=== PATIENT | female | born 1995 | race Caucasian/White ===

== ENCOUNTER 2022-03-29 15:21 | Observation (INO) | payer BC, SELFPAY ==
--- NOTE | 2022-03-29 15:21 | OBADM ---
This patient, Laura Wang, admitted to the OB room [facility] for observation. Patient/family oriented to hospital policies and general routines including ID bracelet, bed and alarms, visiting hours, pain management, procedures, bathroom and other care routines, personal items, smoking policy, room service/diet, and visiting hours. Patient/Family are encouraged to report perceived risks to care and to ask questions if they do not understand what they are told or what they should do.
[2022-03-29 15:55] VITALS: BP 122/77; PULSE 91
[2022-03-29 16:04] VITALS: BMI 31.8
[2022-03-29 16:49] LABS: Add Urine Microscopic? YES; Appearance Urine Cloudy (Clear); Bacteria Urine Trace /hpf; Bilirubin Urine Negative (Negative); Blood Urine Negative (Negative); Calcium Oxalate Crystals Urine Present /hpf; Color Urine Yellow (Yellow); Glucose Urine UA Negative (Negative); Ketones Urine Negative (Negative); Leukocyte Esterase Ur Trace LEU/UL (NEGATIVE); Mucus Urine Rare /lpf; Nitrate Urine Negative (Negative); Protein Urine Negative (Negative); Specific Grav Ur 1.025 (1.001-1.035); Squamous Epithelial Cell Urine Moderate /hpf (Few); Urobilinogen Urine Negative mg/dL (<2.0); WBC Urine 0-3 /hpf (0-3)
--- NOTE | 2022-04-01 07:40 | P.PNOB_ITS ---
OB - Triage/Final Diagnosis Visit Information Comments/Additional reasons for admission: I have assessed the risk for this patient, Laura Wang, and determined that she would benefit from observation care. Evaluation Laboratory results: Laboratory Tests 03/29/22 15:58 Urine Color Yellow Urine Appearance Cloudy H Urine pH 6.0 Ur Specific [place] 1.025 Urine Protein Negative Urine Glucose (UA) Negative Urine Ketones Negative Ur Blood (Man) Negative Urine Nitrate Negative Urine Bilirubin Negative Urine Urobilinogen Negative Ur Leukocyte Esterase Trace H Urine RBC 3-5 H Urine WBC 0-3 Ur Squamous Epith Cells Moderate H Calcium Oxalate Crystal Present Urine Bacteria Trace Urine Mucus Rare Final Diagnosis (1) Abdominal pain affecting : Code(s): O26.899 - Other specified related conditions, unspecified trimester; R10.9 - Unspecified abdominal pain Status: Acute
== END 2022-03-29 18:00 | disposition home or self-care (01) ==
PROVIDERS: Admitting Provider Obstetrics & Gynecology; Visit Provider Obstetrics & Gynecology
DX: O26.892 Other specified pregnancy related conditions, second trimester (principal); R10.9 Unspecified abdominal pain; Z3A.25 25 weeks gestation of pregnancy
CPT/HCPCS: 81001; 87086; G0378; G0379

== ENCOUNTER 2024-05-27 15:01 | Emergency (ER) | payer SELFPAY ==
[2024-05-27 15:06] VITALS: BP 131/84; PULSE 121; RESP 18; TEMP 37.4; O2SAT 100
[2024-05-27 17:28] VITALS: BP 117/68; PULSE 89; RESP 14; O2SAT 100
--- NOTE | 2024-05-27 17:28 | PC.NURSE ---
Pt declined to be seen due to wait time, pt did get vitals taken - VSS. Pt ambulated out w/out difficulty.
== END 2024-05-27 17:30 | disposition left against medical advice (07) ==
LOC: ANHED 17:36
DX: R42 Dizziness and giddiness (principal)
CPT/HCPCS: 99199

== ENCOUNTER 2024-11-07 15:44 | Outpatient (CLI) | payer OTHER, SELFPAY ==
--- OUTSIDE RECORDS SUMMARY | 2024-11-07 15:48 | XMS_ITS | Encounter Summary ---
Author Organization [facility] [employer] [facility] Address [address] [place] [address] Care Team Providers Care Strainer Tender Name Role Phone Unavailable Primary Care Provider Unavailabl e Reason for Visit * Reason Comments Establish Care Encounter Details Date Type Department Care Team ([facility] st Contact Info) Description 11/06/2024 1:30 PM CDT Office Visit [facility] Oncology and Hematology - [place] [address] [facility] [address] [place] [address] Eddie Parish MD [address] [facility] [address] [place] [address] Leukocytosis, unspecified type (Primary Dx); Chronic anemia; Easy bruising Social History Tobacco Use Types Packs/Day Years Used Date Smoking Tobacco: Never Smokeless Tobacco: Never Tobacco Cessation:Counseling Given: Not Answered Alcohol Use Standard Drinks/Week Comments Never 0 (1 standard drink = 0.6 oz pur e alcohol) Comments Unknown Sex and Gender Information Value Date Recorded Sex Assigned at Not on file Legal Sex Female 9:35 AM CDT Gender Identity Not on file Sexual Orientation Not on file documented as of this encounter Last Filed Vital Signs Vital Sign Reading Time Taken Comments Blood Pressure 137/77 11/06/2024 1:41 PM CDT Pulse 92 11/06/2024 1:41 PM CDT Temperature 36.7 C (98.1 F) 11/06/2024 1:41 PM CDT Respiratory Rate 17 11/06/2024 1:41 PM CDT Oxygen Saturation 98% 11/06/2024 1:41 PM CDT Inhaled Oxygen Concentration - - Weight 79.7 kg (175 lb 9.6 oz) 11/06/2024 1:41 P M CDT Height 162.6 cm (5' 4 ) 11/06/2024 1:41 PM CDT Body Mass Index 30.14 11/06/2024 1:41 PM CDT documented in this encounter Progress Notes * Eddie Parish MD - 11/06/2024 2:28 PM CDT Hematology-oncology consult Note Requesting Physician Primary Care Physician No primary care provider on file. Problem list There is no problem list on file for this patient. Previous TREATMENT ? Measurable Disease ? Reason for Visit Laura Wang is a 29 y.o. female who was referred for consultation for leukocytosis, easy bruising and anemia. History of present illness This is a pleasant 29-year-old female who is 9-week with her third along with history of GERD, Greer's esophagus, polycystic ovarian syndrome and prediabetic state referred to mefor leukocytosis. Patient also complain of frequent easy bruising which is spontaneous in nature. She denies any bleeding including melena hematochezia. She has been complaining of generalized bodyaches along with some drenching night sweats. Denies any fevers and chills. Weight is stable. She doeshave some shortness of breath. She also has some frequency of urination. She also been dealing withsome allergies and sinusitis currently. She denies any other new complaints. Labs from October 31 showed WBC count of 13.4 with hemoglobin of 10.5. No other new complaints. Past Medical History Past Medical History: Diagnosis Date Asthma Diabetes mellitus (CMS/HCC) Hyperlipidemia Hypertension PCOS (polycystic ovarian syndrome) Surgical History Past Surgical History: Procedure Laterality Date HX SECTION 2017,2022 HX TONSIL AND ADENOIDECTOMY 2000 Medications Current Outpatient Medications Medication Sig Dispense Refill PNV no.133/ferrous fum/folic ( ORAL) Take by mouth daily. Omeprazole-Sodium Bicarbonate 20-1,680 mg Packet No current facility-administered medications for this visit. Allergies Allergies Allergen Reactions Codeine Hives, Other (See Comments), Rash, Unknown and Nausea and Vomiting Penicillins Hives, Other (See Comments), Rash, Unknown and Nausea and Vomiting Levofloxacin Nausea and Vomiting Immunizations: There is no immunization history on file for this patient. Family History Family History Problem Relation Name Age of Onset Diabetes Father No Known Problems Mother No Known Problems Sister No Known Problems Child No Known Problems Child Social History Social History Tobacco Use Smoking status: Never Smokeless tobacco: Never Substance Use Topics Alcohol use: Never Review of Systems Constitutional: Patient did not mention fever; complain of night sweats; no anorexia; no weight loss;, plan of tiredness and fatigue NEENT: Patient did not mention headache; no change in vision; no change in hearing; no sore throat;no dysphagia Respiratory: Patient did not mention shortness of breath; no pleuritic chest pain; no cough; no hemoptysis Cardiac: Patient did not mention cardiac-like chest pain; no palpitations; no orthopnea; no PND; noDOE Breasts: Patient did not mention tenderness; no masses GI: Patient did not mention abdominal pain; no nausea; no vomiting; no diarrhea; no hematochezia; no melena : Patient did not mention dysuria; no frequency; no hesitancy; no hematuria INVESTIGATIONS CONSULTANT: Musculosketetal: Patient did not mention bone pain; no arthralgia; no joint swelling; no myalgia;, complain of generalized bodyaches Skin: Patient did not mention pruritis; no rash; complain of easy bruising Endocrine: Patient did not mention polydipsia; complain of frequency of urination; no unusual weight gain Neuro: Patient did not mention headache; no change in vision; no sensory changes; no muscle weakness; no confusion; no seizures Psych: Patient did not mention anxiety; no depression; Physical Exam Vitals: As per nursing note Constitutional: Well developed, well nourished, no acute distress, non-toxic appearance Teeth and gum. No signs of infection or swelling. Eyes: PERRL, conjunctiva normal HEENT: Atraumatic, external ears normal, nose normal, oropharynx moist, no pharyngeal exudates. no sinus tenderness Neck- normal range of motion, no tenderness, supple Respiratory: No respiratory distress, normal breath sounds, no rales, no wheezing Cardiovascular: Normal rate, normal rhythm, no murmurs, no gallops, no rubs GI: Soft, nondistended, normal bowel sounds, nontender, no splenomegaly, no hepatomegaly, no mass, no rebound, no guarding : No costovertebral angle tenderness Musculoskeletal: No edema, no tenderness, no deformities. Back- no tenderness Integument: Well hydrated, no rash, Digits and nails inspection normal Lymphatic: No lymphadenopathy noted Neurologic: Alert & oriented x 3, CN 2-12 normal, normal motor function, normal sensory function, no focal deficits noted Psychiatric: Speech and behavior appropriate ? labs No results found for this or any previous visit (from the past 24 hours). Labs from October 31 showed WBC 13.4 hemoglobin 10.5 platelet 386,000 MCV 89.1 Pathology ? Imaging & Other Studies Performance Status? Assessment / Plan: ? Leukocytosis. Patient is a pleasant 29-year-old female who is 9 weeks has history of GERD, Greer's esophagus, prediabetes and PCOS. She is been dealing with leukocytosis for longtime. She has been complaining of drenching night sweats. Denies any recent weight loss or weight gain. On my examination there is no evidence of lymphadenopathy and hepatosplenomegaly. Her leukocytosis is likely reactive. I will order the workup that will include CBC with differential, CMP, C-reactive protein, sedimentation rate and flow cytometric analysis for leukemia panel. I have answered all the questions to patient satisfaction. Normocytic anemia. This could be dilutional with the . I will order the iron studies and vitamin B12 level. She is taking vitamin. She denies any bleeding. Easy bruising. I will check PT and PTT. Further workup will be done based on the findings. GERD. She is on omeprazole. Thank you very much for allowing me to participate in Laura Wang's evaluation and management. Please feel free to contact if I can be of any further assistance in your patient???s care requiring hematology or oncology evaluation. Sincerely, ? ? Eddie Parish M.D. cell TOBACCO COUNSELING She is not a tobacco/nicotine user. Eddie Parish MD ,11/06/2024 2:28 PM ? Total time spent 60 minutes, two third of the total time spent counseling patient [id number]. CC:? documented in this encounter Plan of Treatment Upcoming Encounters Date Type Department Care Team (Late st Contact Info) Description 11/25/2024 4:30 PM CDT Telephone Check Up [facility] Oncology and Hematology - [place] [id number] [place] [address] Eddie Parish MD [address] [facility] [address] [place] [address] Scheduled Orders Name Type Priority Associated Diagnoses Orde r Schedule CBC WITH DIFFERENTIAL Lab Stat Leukocytosis, unspecified type Expected: 11/06/2024, Expires: 11/06/2025 COMPREHENSIVE METABOLIC PANEL Lab Stat Leukocytosis, unspecified type Expected: 11/06/2024, Expires: 11/06/2025 C-REACTIVE PROTEIN Lab Routine Leukocytosis, unspecified type Expected: 11/06/2024, Expires: 11/06/2025 SEDIMENTATION RATE Lab Routine Leukocytosis, unspecified type Expected: 11/06/2024, Expires: 11/06/2025 FLOW CYTOMETRY PANEL Lab Routine Leukocytosis, unspecified type Expected: 11/06/2024, Expires: 11/06/2025 FERRITIN Lab Routine Chronic anemia Expected: 11/06/2024, Expires: 11/06/2025 IRON, TIBC, AND PERCENT SATURATION Lab Routine Chronic anemia Expected: 11/06/2024, Expires: 11/06/2025 VITAMIN B12 AND FOLATE Lab Routine Chronic anemia Expected: 11/06/2024, Expires: 11/06/2025 PTT Lab Routine Easy bruising Expected: 11/06/2024, Expires: 11/06/2025 PROTIME-INR Lab Routine Easy bruising Expected: 11/06/2024, Expires: 11/06/2025 documented as of this encounter Visit Diagnoses Diagnosis Leukocytosis, unspecified type- Primary Chronic anemia Anemia, unspecified Easy bruising Other symptoms involving skin and integumentary tissues documented in this encounter
--- OUTSIDE RECORDS SUMMARY | 2024-11-07 15:48 | XMS_ITS | Encounter Summary ---
Author Organization [facility] [facility] Address [address] [phone] Care Team Providers Care Shift Foreman Name Role Phone Unavailable Primary Care Provider Unavailabl e Encounter Details Date Type Department Care Team ([facility] Contact Info) Description 11/07/2024 Abstract [facility] Oncology and Hematology - [place] [address] [place] [address] Eddie Parish MD [address] [place] [address] [employer] [address] [place] [address] Social History Tobacco Use Types Packs/Day Years Used Date Smoking Tobacco: Never Smokeless Tobacco: Never Alcohol Use Standard Drinks/Week Comments Never 0 (1 standard drink = 0.6 oz pur e alcohol) Comments Unknown Sex and Gender Information Value Date Recorded Sex Assigned at Not on file Legal Sex Female 9:35 AM CDT Gender Identity Not on file Sexual Orientation Not on file documented as of this encounter Plan of Treatment Upcoming Encounters Date Type Department Care Team ([facility] Contact Info) Description 11/25/2024 4:30 PM CDT Telephone Check Up [facility] Oncology and Hematology - [place] [address] [place] [address] Eddie Parish MD [address] [place] [address] documented as of this encounter Visit Diagnoses Not on filedocumented in this encounter
--- OUTSIDE RECORDS SUMMARY | 2024-11-07 15:49 | XMS_ITS | Clinical Summary ---
Author Organization [facility] Address [address] [place] [address] Care Team Providers Care Keg Header Name Role Phone Unavailable Primary Care Provider Unavailabl e Allergies Active Allergy Reactions Criticality Noted Date Comments Codeine Hives,Other (See Comments),Rash,Unknown,Nausea and Vomiting High 05/05/2017 Levofloxacin Nausea and Vomiting Low 06/06/2024 Penicillins Hives,Other (See Comments),Rash,Unknown,Nausea and Vomiting High 05/05/2017 Medications Omeprazole-Sodium Bicarbonate 20-1,680 mg Packet Active PNV no.133/ferrous fum/folic ( ORAL) Take by mouth daily. Active Active Problems No known active problems Encounters Date Type Department Care Team Description 11/07/2024 Abstract [facility] Oncology and Hematology [place] [address] [place] [phone] Eddie Parish MD 11/06/2024 1:30 PM CDT Office Visit [facility] Oncology and Hematology [place] [address] [place] [phone] Eddie Parish MD Leukocytosis, unspecified type (Primary Dx); Chronic anemia; Easy bruising from Last 3 Months Family History Medical History Relation Name Comments No Known Problems Child 1 No Known Problems Child 2 Diabetes Father No Known Problems Mother No Known Problems Sister Relation Name Status Comments Child 1 Alive Child 2 Alive Father Alive Mother Alive Sister Alive Social History Tobacco Use Types Packs/Day Years [...] on file Sexual Orientation Not on file Last Filed Vital Signs Vital Sign Reading [...] Mass Index 30.14 11/06/2024 1:41 PM CDT Plan of Treatment Upcoming Encounters Date Type Department Care Team (Late st Contact Info) Description 11/25/2024 4:30 PM CDT Telephone Check Up [facility] Oncology and Hematology - [place] [address] [facility] [address] [place] [address] Eddie Parish MD [address] [facility] [address] [place] [address] Health Maintenance Due Date Last Done Comments HPV/Cotest (21-29) 2017 INFLUENZA VACCINE (#1) 2024 , 05/05/2017, 05/22/2014, Additional history exists CERVICAL CANCER SCREENING 08/24/2026 PAP SMEAR 08/24/2026 08/25/2023 DTAP/TDAP/TD VACCINES (9 - T d or Tdap) 05/10/2032 05/10/2022, 05/05/2017, 01/15/2007, Additional history exists HEPATITIS B VACCINES Completed 1998, 03/28/1997, 1996 HPV VACCINES Completed 07/23/2007, 06/2006, 01/15/2007 Insurance [facility] MEDICA[facility]
--- OUTSIDE RECORDS SUMMARY | 2024-11-07 15:49 | XMS_ITS | Clinical Summary ---
Author Organization [facility] Address [address] [place] [address] Care Team Providers Care Clinical Laboratory Aides Teacher Name Role Phone Unavailable Primary Care Provider Unavailabl e Source Comments [facility],non-owned Affiliates and Associated Physician Practices is amultiple site organization consisting of ambulatory clinics and hospital sitesin [place], [place], [place] and [place]. This disclosure is being madepursuant to the Care Everywhere program and may not contain all information available regarding this patient. Last updated 18.[facility] One Month Allergies Active Allergy Reactions Criticality Noted Date Comments Codeine 05/05/2017 Codeine Other,Unknown,Vomiting Medium 05/05/2017 Hydrocodone Other,Vomiting Medium 05/05/2017 Penicillins Other,Rash,Unknown,Vomiting Medium 017 Medications * Be aware that medications may not be up to date on this document. Alwaysverify current medications with the patient. Strattera 40 MG capsule 3 Active liraglutide (Victoza) 18 MG/3ML pen Subcutaneous for 30 Days 3 Active Active Problems Problem Noted Date Diagnosed Date Melanocytic nevi of trunk 06/06/2023 Seborrheic keratosis 06/06/2023 Immunizations Immunization Administration Dates Next Due INFLUENZA VACCINE, QUADR. (F LUZONE; FLULAVAL; FLUARIX; AFLURIA QUADRIVALENT; 6MO+), 0.5 ML (IIV4) 05/05/2017 TDAP (7yrs+) 05/05/2017 Social History Tobacco Use Types Packs/Day Years Used Date Smoking Tobacco: Never Smokeless Tobacco: Never Tobacco Cessation:Counseling Given: Not Answered Comments Unknown Sex and Gender Information Value Date Recorded Sex Assigned at Not on file Legal Sex Female 6:12 PM NUT CHOPPER Gender Identity Not on file Sexual Orientation Not on file Plan of Treatment Health Maintenance Due Date Last Done Comments PAP SMEAR 1996 HIV SCREENING 2011 HEPATITIS C SCREENING 06/23/2014 HEPATITIS B VACCINE (1 of 3 - 19+ 3-dose series) 2015 COVID-19 VACCINE (1 - 2023-2 5 season) 2024 DEPRESSION SCREENING 06/19/2024 INFLUENZA VACCINE (Season Ended) 2025 05/10/2022, 05/05/2017 DTAP/TDAP/TD VACCINES (2 - T d or Tdap) 05/05/2027 05/05/2017 ZOSTER VACCINE (1 of 2) 2046 HIB VACCINE Aged Out No longer eligi ble based on patient's age to complete this topic HPV VACCINE Aged Out No longer eligi ble based on patient's age to complete this topic MENINGOCOCCAL (Group B) VACCINE SHARED DECISION-MAKING Aged Out No longer eligible based on patient's age to complete this topic MENINGOCOCCAL GROUPS A/C/Y/W VACCINE Aged Out No longer eligible b ased on patient's age to complete this topic PNEUMOCOCCAL VACCINE Aged Out No long er eligible based on patient's age to complete this topic Insurance [facility]
--- OUTSIDE RECORDS SUMMARY | 2024-11-07 15:49 | XMS_ITS | Patient Health Record ---
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 Name Role Phone AponteFlower Primary Care Provider Sanjana Moreno Unavailable [phone] Letitia Ellison Unavailable [phone] Allergies Allergen (clinical drug ingredient) Drug/Non Drug Allergy documented on EMR Reaction Allergy Type Onset Date Status amoxicillin Amoxicillin rash Drug Allergy Act jonny codeine Codeine childhood Drug Allergy Active hydrocodone Hydrocodone vomiting Drug Allergy Act jonny levofloxacin Levofloxacin nausea and vomiting Drug Allergy Active Penicillin rash Drug Allergy Active Results Component Value Reference Range Notes Hemoglobin A1c* Reviewed date:06/20/2024 04:51:40 PM Interpretation:Normal Performing Lab:[facility] [place], [address] [facility], Phone - [phone], Director - Stephon Notes/Report: Hemoglobin A1c 5.4 4.8-5.6 % . Prediabetes: 5.7 - 6.4 Diabetes: >6.4 Glycemic control for adults with diabetes: <7.0 CBC With Differential/Platel et* Reviewed date:06/20/2024 04:51:40 PM Interpretation:Abnormal Performing Lab:[facility] [place], [address] [facility], Phone - [phone], Director - PhDNedra Notes/Report: WBC 8.8 3.4-10.8 x10E3/uL RBC 4.04 3.77-5.28 x10E6/uL Hemoglobin 11.8 11.1-15.9 g/dL Hematocrit 37.8 34.0-46.6 % MCV 94 79-97 fL MCH 29.2 26.6-33.0 pg MCHC 31.2 31.5-35.7 g/dL RDW 12.9 11.7-15.4 % Platelets 495 150-450 x10E3/uL Neutrophils 56 Not Estab. % Lymphs 32 Not Estab. % Monocytes 8 Not Estab. % Eos 3 Not Estab. % Basos 1 Not Estab. % Neutrophils (Absolute) 5.0 1.4-7.0 x10E3/uL Lymphs (Absolute) 2.8 0.7-3.1 x10E3/uL Monocytes(Absolute) 0.7 0.1-0.9 x10E3/uL Eos (Absolute) 0.2 0.0-0.4 x10E3/uL Baso (Absolute) 0.1 0.0-0.2 x10E3/uL Immature Granulocytes 0 Not Estab. % Immature Grans (Abs) 0.0 0.0-0.1 x10E3/uL Vitamin D, 25-Hydroxy* Reviewed date:06/20/2024 04:51:40 PM Interpretation:Low Performing Lab:[facility] [place], [address] [facility], [place], Phone - [phone], Director - Stephon Notes/Report: Vitamin D, 25-Hydroxy 17.5 30.0-100.0 ng/mL Vitamin D deficiency has been defined by the [place] of Medicine and an Endocrine Society practice guideline as a level of serum 25-OH vitamin D less than 20 ng/mL (1,2). The Endocrine Society went on to further define vitamin D insufficiency as a level between 21 and 29 ng/mL (2). 1. IOM ([place] of Medicine). 2010. Dietary reference intakes for calcium and D. [place]: The National Academies Press. 2. Osei MF, Laurita AMBRIZ, Lashonda WOO, et al. Evaluation, treatment, and prevention of vitamin D deficiency: an Endocrine Society clinical practice guideline. JCEM. 2010; 96(7):1911-30. Lipid Panel* Reviewed date:06/20/2024 04:51:40 PM Interpretation:Abnormal Performing Lab:[facility], [address] [place] [address], Phone - [phone], Director - PhDBoston Dispensarywing Notes/Report: Cholesterol, Total 207 100-199 mg/dL Triglycerides 99 0-149 mg/dL HDL Cholesterol 58 >39 mg/dL VLDL Cholesterol Silvano 18 5-40 mg/dL LDL Chol Calc ([facility]) 131 0-99 mg/dL CMP 14 Comprehensive Metabol ic Panel* Reviewed date:06/20/2024 04:51:40 PM Interpretation:Abnormal Performing Lab:[facility], [address] [place] [address], Phone - [phone], Director - PhDBoston Dispensarywing Notes/Report: Glucose 89 70-99 mg/dL BUN 14 6-20 mg/dL Creatinine 0.62 0.57-1.00 mg/dL eGFR 125 >59 mL/min/1.73 BUN/Creatinine Ratio 23 9-23 Sodium 138 134-144 mmol/L Potassium 4.5 3.5-5.2 mmol/L Chloride 102 96-106 mmol/L Carbon Dioxide, Total 22 20-29 mmol/L Calcium 9.8 8.7-10.2 mg/dL Protein, Total 6.7 6.0-8.5 g/dL Albumin 4.5 4.0-5.0 g/dL Globulin, Total 2.2 1.5-4.5 g/dL Bilirubin, Total 0.5 0.0-1.2 mg/dL Alkaline Phosphatase 138 44-121 IU/L AST (SGOT) 17 0-40 IU/L ALT (SGPT) 15 0-32 IU/L TSH Rfx on Abnormal to Free T4 Reviewed date:06/20/2024 04:51:40 PM Interpretation:Normal Performing Lab:[facility], [address] [place] [address], Phone - [phone], [facility] Notes/Report: TSH 1.580 0.450-4.500 uIU/mL Test, Urine Reviewed date:10/15/2024 03:25:22 PM Interpretation: Performing Lab: Notes/Report: Test, Urine POS Negative - Negative CBC With Differential/Platel et* Reviewed date:07/08/2024 05:02:36 PM Interpretation: Performing Lab:[facility], [address] [place] [address], Phone - [phone], Director - PhDRicchiwingi Notes/Report: WBC 11.3 3.4-10.8 x10E3/uL RBC 4.23 3.77-5.28 x10E6/uL Hemoglobin 12.6 11.1-15.9 g/dL Hematocrit 38.8 34.0-46.6 % MCV 92 79-97 fL MCH 29.8 26.6-33.0 pg MCHC 32.5 31.5-35.7 g/dL RDW 14.0 11.7-15.4 % Platelets 492 150-450 x10E3/uL Neutrophils 67 Not Estab. % Lymphs 24 Not Estab. % Monocytes 6 Not Estab. % Eos 2 Not Estab. % Basos 1 Not Estab. % Neutrophils (Absolute) 7.5 1.4-7.0 x10E3/uL Lymphs (Absolute) 2.7 0.7-3.1 x10E3/uL Monocytes(Absolute) 0.7 0.1-0.9 x10E3/uL Eos (Absolute) 0.2 0.0-0.4 x10E3/uL Baso (Absolute) 0.1 0.0-0.2 x10E3/uL Immature Granulocytes 0 Not Estab. % Immature Grans (Abs) 0.0 0.0-0.1 x10E3/uL C-Reactive Protein, Quant Reviewed date:07/08/2024 05:02:36 PM Interpretation: Performing Lab:[facility] [place], [address] [place] [address], Phone - [phone], Director - PhDNedra Notes/Report: C-Reactive Protein, Quant 1 0-10 mg/L Reason For Referral Reason Would like to start therapy Diagnosis 1 ADHD (attention defi cit hyperactivity disorder), combined type (F90.2) Referral Organization [facility] Referring Provider First Name Flower Referring Provider Last Name Fadi Referring Provider Speciality Psychiatry Referred Provider [facility] Clinical Notes Rina Camp 08:51:04 AM >[employer] contacted the consumer regarding referral. Consumer is in agreement with referral. However, consumer stated she would call back on her lunch hour for therapy information., Rina Camp 02/23/2024 02:02:55 PM >ELÍ[facility] LOPES attempted to contact consumer regarding referral. VM left requesting call back for options of having the [facility] therapy process information provided via mail and/or email. Awaiting consumer's response for next steps., Rina Camp 02/26/2024 03:38:40 PM >HN PW contacted consumer regarding referral. Consumer is in agreement with the therapy referral. HN PW explained the therapy process. Consumer stated she is aware of [facility] and has the contact information. Consumer stated she is currently working two jobs but just need to find time to call and find out therapy availability. HN advised to inform provider if any additional assistance is warranted. Consumer voiced understanding. Case addressed and closed. Referral Priority Routine Reason Hx. of thrombocytosi s with elevated WBCs, frequent bruising Diagnosis 1 Elevated white blood cell count, unspecified (D72.829) Diagnosis 2 Thrombocytosis (D75. 839) Referral Organization [facility] Referring Provider First Name Letitia Referring Provider Last Name Short Referring Provider [facility] Referred Provider [facility] Referred Provider Specialty Hematology/O ncology General Notes Current patient: todd weinberg new referral to Dr. Eddie Parish, [place] Benita J 07/22/2024 04:12:47 PM >refaxed to Hematology office per patient request as office states they did not receive the labs. Clinical Notes [facility], [address], [place]. [address], , Referral Priority Routine Medications Medication SIG (Take, Route, Frequency, Duration) Notes Start Date End Date Status Promethazine-DM 6.25-15 MG/5ML 5 mL as needed Orally every 6 hrs for 21 days 08/13/2024 Active Vyvanse 40 MG 1 capsule in the morning Orally Once a day for 30 days 08/22/2024 Active Vyvanse 40 MG 1 capsule in the morning Orally Once a day for 30 days 09/19/2024 Active Vyvanse 40 MG 1 capsule in the morning Orally Once a day for 30 days 10/17/2024 Active Vitamin D (Ergocalciferol) 60905 UNIT 1 capsule Orally once a week for 8 weeks for 60 days 06/20/2024 Active Omeprazole 40 MG 1 capsule 1/2 to 1 hour before morning meal Oral Once a day for 30 days Active Fluticasone Propionate 50 MCG/ACT 1 spray in each nostril Nasally Twice a day for 30 days 08/13/2024 Active Victoza 18 MG/3ML Subcutaneous for 30 Days Not-Taking methylPREDNISolone 4 MG Oral for 6 Days Not-Taking levoFLOXacin 750 MG Oral for 7 Days Not-Taking LaMICtal 200 MG 1 tablet Orally once a day for 30 days 08/04/2023 Active FLUoxetine HCl 20 MG 3 capsule Orally On ce a day for 30 days 09/29/2023 Active metFORMIN HCl 500 MG Oral for 90 Days Active Clindamycin HCl 300 MG 1 capsule Orally every 12 hrs for 7 days 06/25/2024 Not-Taking Cyclobenzaprine HCl 5 MG 1 tablet at bedtime as needed Orally Once a day for 30 days As needed 06/17/2024 Active Chlorhexidine Gluconate 0.12 % 15 mL swish for 30 seconds, then spit. Do not swallow. Mouth/Throat Twice a day for 30 days 06/25/2024 Not-Taking Social History Tobacco Use: Social History Observation Description Date Details (start date - stop date) Never Smoker NA - NA Sex Assigned At : Social History Observation Description Sex Assigned At Female Tobacco Control (Standard) Question Answer Notes Tobacco use: Nonsmoker Problems Problem Type SNOMED Code ICD Code Onset Dates Problem Status W/U Status Risk Notes Problem Leukocytosis (943328758) Elevated white blood cell count, unspecified (D72.829) Active confirmed Problem Mood disorder (87434898) Mood disorder (F39) Active confirmed Problem Attention deficit hyperactivity disorder (501273915) ADHD (attention deficit hyperactivity disorder), combined type (F90.2) Active confirmed Problem Vitamin D deficiency (87618505) Vitamin D deficiency (E55.9) Active confirmed Problem Generalized anxiety disorder (24831593) SUJIT (generalized anxiety disorder) (F41.1) Active confirmed Problem Missed period (03962378) Missed menses (N92.6) Active confirmed Problem Laboratory test result abnormal (207087637) Abnormal laboratory test result (R89.9) Active confirmed Vital Signs Heart Rate 83 /min 09/18/2024 Respiratory Rate 16 /min 09/18/2024 Oximetry 98 % 09/18/2024 Blood pressure diastolic 82 mm Hg 09/18/2024 Height 64 in 09/18/2024 Blood pressure systolic 124 mm Hg 09/18/2024 Weight 164.8 lbs 09/18/2024 BMI 28.28 kg/m2 09/18/2024 Encounters Encounter Location Date Provider Diagnosis [facility] [place] [address] 12/26/2023 Flower Aponte ADHD (attention deficit hyperactivity disorder), combined type F90.2 and Mood disorder [address] [place] [place] [address] 02/21/2024 Flower Aponte ADHD (attention deficit hyperactivity disorder), combined type F90.2 ; SUJIT (generalized anxiety disorder) F41.1 and Mood disorder [address] [place] [address] 04/24/2024 Flower Aponte ADHD (attention deficit hyperactivity disorder), combined type F90.2 ; SUJIT (generalized anxiety disorder) F41.1 and Mood disorder [address] [place] [address] 06/04/2024 Flower Aponte ADHD (attention deficit hyperactivity disorder), combined type F90.2 ; SUJIT (generalized anxiety disorder) F41.1 and Mood disorder [address] [place] [address] 06/17/2024 Letitia Ellison Muscle spasm of back M62.830 ; Establishing care with new doctor, encounter for Z71.89 ; Screening for deficiency anemia Z13.0 ; Screening for metabolic disorder Z13.228 ; Screening for diabetes mellitus Z13.1 ; Screening for thyroid disorder Z13.29 and Screening for hyperlipidemia Z13.[address] [place] [address] 06/18/2024 Letitia Ellison Screening for diabetes mellitus Z13.1 ; Screening for deficiency anemia Z13.0 ; Screening for hyperlipidemia Z13.220 ; Screening for metabolic disorder Z13.228 and Screening for thyroid disorder Z13.[address] [place] [address] 07/05/2024 Letitia Ellison Abnormal laboratory test result R89.[address] [address] 07/10/2024 Letitia Ellison Follow up Z09 ; Thrombocytosis D75.839 ; Elevated white blood cell count, unspecified D72.829 ; Dyspnea on exertion R06.09 and Nutritional counseling Z71.3 [facility] [address] [place] [address] 08/22/2024 Flower Aponte ADHD (attention deficit hyperactivity disorder), combined type F90.2 ; SUJIT (generalized anxiety disorder) F41.1 and Mood disorder F39 [address] [address] 09/18/2024 Letitia Ellison Eczema L30.[address] [address] 11/15/2023 Flower Aponte [address] [address] 12/26/2023 Flower Aponte ADHD (attention deficit hyperactivity disorder), combined type F90.[address] [address] 02/28/2024 Sanjana Moreno [address] [address] 03/01/2024 Flower Aponte ADHD (attention deficit hyperactivity disorder), combined type F90.2 and Mood disorder F39 [address] [address] 04/08/2024 Flower Aponte ADHD (attention deficit hyperactivity disorder), combined type F90.[address] [address] 06/20/2024 Letitia Ellison Abnormal laboratory test result R89.9 and Vitamin D deficiency E55.[address] [address] 06/25/2024 Letitia Ellison Dental abscess K04.[address] [place] [address] 07/08/2024 Letitia Ellison [facility] [address] [place] [address] 07/11/2024 Letitia Ellison [address] [place] [address] 07/16/2024 Flower Aponte Mood disorder F39 [address] [place] [address] 08/13/2024 Letitia Ellison Nasal congestion R09.81 and Cough R05.9 [facility] [place] [address] 09/11/2024 Flower Aponte ADHD (attention deficit hyperactivity disorder), combined type F90.2 [facility] [address] [place] [address] 09/11/2024 Letitia Ellison [address] [place] [address] 09/25/2024 Letitia Ellison [address] [place] [address] 10/15/2024 Letitia Ellison Missed menses N92.[address] [place] [address] 10/15/2024 Flower Aponte [address] [place] [address] 10/15/2024 Letitia Ellison [address] [place] [address] 11/01/2024 Flower Aponte [address] [place] [address] 07/18/2024 Letitia Ellison Assessments Encounter Date Diagnosis (ICD Code) Assessment Notes Treatment Notes Treatment Clinical Notes Section Notes 12/26/2023 ADHD (attention deficit hyperactivity disorder), combined type (ICD-10 - F90.2) Start Julian to help with focus and attention. She does work. Continue other medication. May self-administer medications or be administered own oral medications per [facility] protocols. Provided informed consent with understanding of side effects, adverse effects, risks and benefits as well as alternative treatments as previously discussed and with the above recommended medications & other aspects of the treatment program. Agrees to return sooner if symptoms worsen or suicidal or homicidal ideations occur. 12/26/2023 ADHD (attention deficit hyperactivity disorder), combined type (ICD-10 - F90.2) 02/21/2024 ADHD (attention deficit hyperactivity disorder), combined type (ICD-10 - F90.2) 03/01/2024 ADHD (attention deficit hyperactivity disorder), combined type (ICD-10 - F90.2) 04/08/2024 ADHD (attention deficit hyperactivity disorder), combined type (ICD-10 - F90.2) 04/24/2024 ADHD (attention deficit hyperactivity disorder), combined type (ICD-10 - F90.2) 06/04/2024 ADHD (attention deficit hyperactivity disorder), combined type (ICD-10 - F90.2) 06/17/2024 Muscle spasm of back (ICD-10 - M62.830) 06/17/2024 Establishing care with new doctor, encounter for (ICD-10 - Z71.89) 09/18/2024 Eczema (ICD-10 - L30.9) has been using steroid cream with no response. Advised to try emolient cream and RTC if no improvement 10/15/2024 Missed menses (ICD-10 - N92.6) 09/11/2024 ADHD (attention deficit hyperactivity disorder), combined type (ICD-10 - F90.2) 08/13/2024 Nasal congestion (ICD-10 - R09.81) 08/13/2024 Cough (ICD-10 - R05.9) 07/16/2024 Mood disorder (ICD-10 - F39) 06/18/2024 Screening for diabetes mellitus (ICD-10 - Z13.1) 08/22/2024 ADHD (attention deficit hyperactivity disorder), combined type (ICD-10 - F90.2) 07/10/2024 Follow up (ICD-10 - Z09) 07/10/2024 Thrombocytosis (ICD-10 - D75.839) 07/05/2024 Abnormal laboratory test result (ICD-10 - R89.9) 06/25/2024 Dental abscess (ICD-10 - K04.7) 06/20/2024 Vitamin D deficiency (ICD-10 - E55.9) 06/20/2024 Abnormal laboratory test result (ICD-10 - R89.9) 08/22/2024 SUJIT (generalized anxiety disorder) (ICD-10 - F41.1) 06/18/2024 Screening for deficiency anemia (ICD-10 - Z13.0) 07/10/2024 Elevated white blood cell count, unspecified (ICD-10 - D72.829) 06/17/2024 Screening for deficiency anemia (ICD-10 - Z13.0) 06/04/2024 SUJIT (generalized anxiety disorder) (ICD-10 - F41.1) 04/24/2024 SUJIT (generalized anxiety disorder) (ICD-10 - F41.1) 02/21/2024 SUJIT (generalized anxiety disorder) (ICD-10 - F41.1) 03/01/2024 Mood disorder (ICD-10 - F39) 12/26/2023 Mood disorder (ICD-10 - F39) 02/21/2024 Mood disorder (ICD-10 - F39) 04/24/2024 Mood disorder (ICD-10 - F39) 06/04/2024 Mood disorder (ICD-10 - F39) 06/17/2024 Screening for metabolic disorder (ICD-10 - Z13.228) 07/10/2024 Dyspnea on exertion (ICD-10 - R06.09) 08/22/2024 Mood disorder (ICD-10 - F39) 06/18/2024 Screening for hyperlipidemia (ICD-10 - Z13.220) 06/18/2024 Screening for metabolic disorder (ICD-10 - Z13.228) 06/17/2024 Screening for diabetes mellitus (ICD-10 - Z13.1) 06/18/2024 Screening for thyroid disorder (ICD-10 - Z13.29) 06/17/2024 Screening for thyroid disorder (ICD-10 - Z13.29) 07/10/2024 Nutritional counseling (ICD-10 - Z71.3) 06/17/2024 Screening for hyperlipidemia (ICD-10 - Z13.220) 09/18/2024 Other Patient may self-administer their own medications or may self-administer their own oral medications per [facility] Protocol. 08/22/2024 Other Continue current medications. Adding OTC Magnesium to help with sleep. She has appointments to follow up with specialists and with her son. She feels having more answers on her sons condition and getting treatment for him will help her anxiety. Reviewed Prescription Monitoring program. Continue services as scheduled. Labs completed recently. May self-administer medications or be administered own oral medications per [facility] protocols. Provided informed consent with understanding of side effects, adverse effects, risks and benefits as well as alternative treatments as previously discussed and with the above recommended medications & other aspects of the treatment program. Agrees to return sooner if symptoms worsen or suicidal or homicidal ideations occur. 06/04/2024 Other Continue current medications. Reviewed Prescription Monitoring program. Continue services as scheduled. Follow up with PCP. Labs ordered from PCP. May self-administer medications or be administered own oral medications per [facility] protocols. Provided informed consent with understanding of side effects, adverse effects, risks and benefits as well as alternative treatments as previously discussed and with the above recommended medications & other aspects of the treatment program. Agrees to return sooner if symptoms worsen or suicidal or homicidal ideations occur. 02/21/2024 Other Continue current medications, consider a med increase. Ok to change if before 30 days, afterthat would need a follow up. Just waiting for hemotology appointment. Continue services as scheduled. Referred for therapy. Labs completed recently. Is following up with hemotology. May self-administer medications or be administered own oral medications per [facility] protocols. Provided informed consent with understanding of side effects, adverse effects, risks and benefits as well as alternative treatments as previously discussed and with the above recommended medications & other aspects of the treatment program. Agrees to return sooner if symptoms worsen or suicidal or homicidal ideations occur. 04/24/2024 Other Increase LAmictal to help with mood instability. Reviewed Prescription Monitoring program. Continue services as scheduled. Labs completed recently. May self-administer medications or be administered own oral medications per [facility] protocols. Provided informed consent with understanding of side effects, adverse effects, risks and benefits as well as alternative treatments as previously discussed and with the above recommended medications & other aspects of the treatment program. Agrees to return sooner if symptoms worsen or suicidal or homicidal ideations occur. Plan Of Treatment No Information Insurance Providers Payer Name Payer Address Payer Phone Subscriber Number Group Number Insured Name Patient Relationship to Insured Coverage Start Date Coverage End Date [employer] [facility] Claims Department [address] [place] [address] [phone] [id number] Laura Wang Self - patient is the insured 3 [employer] [facility] Claims Department [address] [facility] [place] [address] [phone] [id number] Laura Wang Self - patient is the insured 3 Medical (General) History Medical History History ICD Code Pre-diabetic GERD Surgical History Surgery Date(Month/Year) C section x 2 Tonsillectomy 5 years of age Hospitalization History Reason Date(Month/Year)
--- OUTSIDE RECORDS SUMMARY | 2024-11-07 15:49 | XMS_ITS | Continuity of Care Document ---
Author Organization [facility] Address [address] [place] [address] [address] [place] [address] Phone Care Team Providers Care Box Brander Name Role Phone Cisneros OD, Fredy Unavailable Unavailable Procedures Procedure Date Eye Exam, New Patient Refraction Advance Directives Directive Yes / No Effective Date File Name No Information Encounters Encounter Description Practice Location Reason(s) For Visit Diagnoses Date Provider Providers Copied on Encounter [facility], [address], [place], [place], [id number], [place] tel:[phone] [place] No Information 1-200 7 Cisneros OD Fredy. [address] , [address], [place], [address], [place]. tel:[phone] Family History Family Member Type Diagnosis Age At Onset No Information Payers Payer name Insurance type Covered green party ID Authorkaylaa tijonatan(s) [facility] CI [id number] Social History Type Description Quantity Date Captured Comments Sex Female Smoking Status No Information Chief Complaint And Reason For Visit No Information Reason For Referral Reason For Referral No Information History Of Present Illness Encounter Date Complaint History Of Prese nt Illness No Information Functional Status Date Functional Assessmen t No Information Instructions Date Instruction Additional Infor mation No Information Assessments Type Assessment Date No Information Patient Care Teams Name Effective Dates (start - stop) Status Members No Information
[2024-11-07 16:08] LABS: Basophils Absolute Auto 0.1 K/mm3 (0.0-0.1); Basophils Percent Auto 0.5 % (0.2-1.2); Eosinophils Absolute Auto 0.2 K/mm3 (0-0.3); Eosinophils Percent Auto 1.4 % (0-4.4); Hematocrit 32.6 % (37.0-47.0); Hemoglobin 10.4 g/dL (12.0-15.0); Immature Granulocyte Absolute 0.02 K/mm3 (0.00-0.031); Immature Granulocyte Percent A 0.2 % (0-0.5); Lymphocytes Absolute Auto 1.09 K/mm3 (0.9-3.2); Mean Corpuscular HGB Conc 31.9 g/dl (32-36); Mean Corpuscular Hemoglobin 28.8 pg (26-34); Mean Corpuscular Volume 90.3 fl (80-100); Mean Platelet Volume 10.8 fl (7.4-10.4); Monocytes Absolute Auto 0.9 K/mm3 (0.1-0.6); Monocytes Percent Auto 8.6 % (2.6-8.5); Neutrophils Absolute Auto 8.6 K/mm3 (1.3-6.7); Neutrophils Percent Auto 79.3 % (45.5-73.1); Platelet Count Result 334 k/mm3 (150-375); Red Blood Count 3.61 M/mm3 (4.2-5.4); Red Cell Distribution Width 15.9 % (11.5-14.5); White Blood Count 10.9 K/mm3 (4.5-10.0)
[2024-11-07 16:43] LABS: Iron 48 ug/dL (37-170)
[2024-11-07 16:47] LABS: Partial Thromboplastin Time 27.4 Seconds (22.3-36.8); Prothrombin Time 13.3 Seconds (11.1-14.7)
[2024-11-07 16:52] LABS: Percent Iron Saturation 9 % (20-50)
[2024-11-07 16:59] LABS: Alanine Aminotransferase 20 U/L (6-35); Alkaline Phosphatase 96 U/L (38-126); Anion Gap 8 mmol/L (4-12); Aspartate Amino Transferase 32 U/L (14-36); Bilirubin,Total 0.5 mg/dL (0.2-1.3); Blood Urea Nitrogen 8 mg/dL (7-17); CRP 2.4 mg/dL (<1.0); Carbon Dioxide 23 mmol/L (22-30); Chloride 105 mmol/L (98-107); Estimated Glomerular Filt Rate > 60; Glucose 111 mg/dL (65-110); Potassium 3.8 mmol/L (3.4-5.0); Sodium 136 mmol/L (137-145)
[2024-11-07 17:07] LABS: Erythrocyte Sedimentation Rate 35 mm/hr (0-20)
[2024-11-07 18:10] LABS: Folic Acid > 20.0 ng/mL (2.76->20)
== END 2024-11-07 15:45 | disposition home or self-care (01) ==
PROVIDERS: Visit Provider Internal Medicine Hematology & Oncology
DX: D72.829 Elevated white blood cell count, unspecified (principal); D64.9 Anemia, unspecified; R23.3 Spontaneous ecchymoses
CPT/HCPCS: 36415; 80053; 82607; 82728; 82746; 83540; 83550; 85025; 85610; 85652; 85730; 86140; 88184

== ENCOUNTER 2025-01-27 12:51 | Outpatient (CLI) | payer OTHER, SELFPAY ==
[2025-01-27 13:08] LABS: Hematocrit 34.6 % (37.0-47.0); Hemoglobin 11.5 g/dL (12.0-15.0); Immature Granulocyte Percent A 0.6 % (0-0.5); Lymphocytes Absolute Auto 2.32 K/mm3 (0.9-3.2); Mean Corpuscular HGB Conc 33.2 g/dl (32-36); Mean Corpuscular Hemoglobin 31.1 pg (26-34); Mean Corpuscular Volume 93.5 fl (80-100); Nucleated Red Blood Cells Absolute Auto 0.000 K/mm3 (0.0-0.012); Nucleated Red Blood Cells Perc 0.0 % (0.0-0.2); Platelet Count Result 307 k/mm3 (150-375); Red Blood Count 3.70 M/mm3 (4.2-5.4); White Blood Count 12.7 K/mm3 (4.5-10.0)
[2025-01-27 16:55] LABS: Iron 96 ug/dL (37-170)
[2025-01-27 17:05] LABS: Percent Iron Saturation 18 % (20-50)
[2025-01-27 17:36] LABS: Ferritin 6.68 ng/mL (6.24-137)
== END 2025-01-27 12:52 | disposition home or self-care (01) ==
LOC: ANHLAB 12:52
PROVIDERS: Visit Provider Internal Medicine Hematology & Oncology
DX: D64.9 Anemia, unspecified (principal)
CPT/HCPCS: 36415; 82728; 83540; 83550; 85025

== ENCOUNTER 2025-05-13 13:00 | Outpatient (CLI) | payer OTHER, SELFPAY ==
--- OUTSIDE RECORDS SUMMARY | 2025-05-13 08:45 | XMS_ITS | Encounter Summary ---
Author Organization [facility] Healthcare Address [address] [place] [address] Care Team Providers Care Clock Smith Name Role Phone Jabari Reynaga MD Primary Care Provider [phone] Reason for Referral * Diagnostic Imaging (Routine) - Closed Specialty Diagnoses / Procedures Referred By Contac t Referred To Contact Diagnoses Supervision of other normal , antepartum Attention deficit hyperactivity disorder (ADHD), unspecified ADHD type Procedures US Ob Follow Up Ross Daniel MD [address] [place] [id number] Phone: tel: fax: [facility] (All Locations) Referral ID Status Reason Start Date Expiration Date Visits Re quested Visits Authorized [id number] Closed 02/20/2025 03/22/2026 1 1 MANAGER Reason for Visit * Diagnostic Imaging (Routine) - Closed Specialty Diagnoses / Procedures Referred By Contac t Referred To Contact Diagnoses Supervision of other normal , antepartum Attention deficit hyperactivity disorder (ADHD), unspecified ADHD type Procedures US Ob Follow Up Ross Daniel MD [address] [place] [address] Phone: tel: fax: [facility] (All Locations) Referral ID Status Reason Start Date Expiration Date Visits Re quested Visits Authorized [id number] Closed 02/20/2025 03/22/2026 1 1 Encounter Details Date Type Department Care Team (Latest Contact Info) Description 05/13/2025 8:45 AM ZONE MANAGER Hospital Encounter [facility] - Ultrasound [address] [facility], 7th [address], [address] [place] [facility] [place] [address] Supervision of other normal , antepartum; Attention deficit hyperactivity disorder (ADHD), unspecified ADHD type Social History Tobacco Use Types Packs/Day Years Used Date Smoking Tobacco: Never Smokeless Tobacco: Never Social Connection and Isolation Panel Answer Date Recorded In a typical week, how many times do you talk on the phone with family, friends, or neighbors? More than three times a week 07/06/2022 How often do you get togethe r with friends or relatives? More than three times a week 07/06/2022 How often do you attend chur ch or islam services? Never 07/06/2022 Do you belong to any clubs o r organizations such as mormon groups, unions, fraternal or athletic groups, or school groups? No 07/06/2022 How often do you attend meet ings of the clubs or organizations you belong to? Never 07/06/2022 Are you , , di vorced, , never , or living with a partner? Living with partner 07/06/2022 AUDIT-C Answer Date Recorded Q1: How often do you have a drink containing alcohol? Never 10/31/2024 Q2: How many drinks containi ng alcohol do you have on a typical day when you are drinking? Patient does not drink Q3: How often do you have si x or more drinks on one occasion? Never 10/31/2024 Overall Financial Resource Strain (CARDIA) Answe r Date Recorded How hard is it for you to pa y for the very basics like food, housing, medical care, and heating? Not hard at all 07/06/2022 Hunger Vital Sign Answer Date Recorded Within the past 12 months, y ou worried that your food would run out before you got the money to buy more. Never true 07/06/19 23 Within the past 12 months, t he food you bought just didn't last and you didn't have money to get more. Never true 07/06/2022 PRAPARE - Transportation Answer Date Re corded In the past 12 months, has l ack of transportation kept you from medical appointments or from getting medications? No 06/19 In the past 12 months, has l ack of transportation kept you from meetings, work, or from getting things needed for daily living? No 07/06/2022 Housing Stability Vital Sign Answer Kevin e Recorded In the last 12 months, was t here a time when you were not able to pay the mortgage or rent on time? No 07/06/2022 In the last 12 months, how many places have you lived? 1 07/06/2022 In the last 12 months, was t here a time when you did not have a steady place to sleep or slept in a [place] [facility] [place] facility (including now)? No 07/06/2022 [place] Depression Scale Answer Date Recorded [place] Depression Scale Total 0 08/18/2022 The thought of harming myself has occurred to me . Never 08/18/2022 Personal Safety Answer Date Recorded Have you ever been in or are you currently in a harmful physical or emotional relationship or is someone making you feel afraid or unsafe? Denies 05/08/2025 Estimated Date of Delivery Comme nts Yes 06/09/2025 Based on Ultraso und Sex and Gender Information Value Date Recorded Sex Assigned at Not on file Legal Sex Female 6:23 PM ZONE MANAGER Gender Identity Female 07/18/2024 2:44 PM ZONE MANAGER Sexual Orientation Straight 07/18/2024 2: 44 PM ZONE MANAGER documented as of this encounter Functional Status * Edema Answer Date of Assessment Author Roxy houston 05/13/2025 9:35 AM ZONE MANAGER Nikko Mendoza MD documented as of this encounter Plan of Treatment Upcoming Encounters Date Type Department Care Team (Late st Contact Info) Description 06/02/2025 8:30 AM ZONE MANAGER Hospital Encounter [address] [address] Letitia Nicholas MD [address] [address] 06/02/2025 8:30 AM ZONE MANAGER - 06/02/2025 10:56 AM ZONE MANAGER Surgery [address] [id number] Letitia Nicholas MD [address] [facility] [address] [place] [address] SECTION Scheduled Procedures Name Priority Associated Diagnoses Date/Ti me SECTION History of delivery 06/02/2025 8:30 AM ZONE MANAGER documented as of this encounter Procedures Procedure Name Priority Date/Time Associated Diagnosis Comments US OB FOLLOW UP Schedule Routine, Read Routine (OP Routine) 05/13/2025 8:49 AM ZONE MANAGER Supervision of other normal , antepartum Attention deficit hyperactivity disorder (ADHD), unspecified ADHD type documented in this encounter Results * US Ob Follow Up (05/13/2025 8:49 AM ZONE MANAGER) Fetus# Fetus1 VIEWPOINT Estimated Weight 3,998 g&grams VIEWPOINT Placenta Details left lateral, Previa-no, no placental masses VIEWPOINT Presentation Transverse Lie VIEWPOINT Anatomical Region Laterality Modality Abdomen N/A Ultrasound 05/13/2025 8:50 AM ZONE MANAGER Impressions 05/13/2025 9:18 AM ZONE MANAGER IUP - 36w 1d - LGA growth pattern - the EFW and AC both exceed the 99% Mild polyhydramnios Transverse lie presentation 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 us Ross Daniel MD IMG OB US PROCEDURES Johanny l Result documented in this encounter Visit Diagnoses Diagnosis History of delivery- Primary Supervision of other normal , antepartum Attention deficit hyperactivity disorder (ADHD), unspecified ADHD type History of delivery documented in this encounter Care Teams Clock Smith Relationship Specialty Start Date End Date Jabari Reynaga MD [address] [place] [address] PCP - General Internal Medicine 03/13/25 documented as of this encounter
--- OUTSIDE RECORDS SUMMARY | 2025-05-13 09:30 | XMS_ITS | Encounter Summary ---
Author Organization [facility] Address [address] [place] [address] Phone Care Team Providers Care Cnc Lathe Machinist Name Role Phone Jabari Reynaga MD Primary Care Provider [phone] Reason for Visit * Reason Comments Routine Visit Encounter Details Date Type Department Care Team (Latest Contact Info) Description 05/13/2025 9:30 AM OPERATIONS TECH Office Visit [facility] Medicine Obstetrics and Gynecology [address] [facility] 7th Floor [address] [place] [address] Supervision of other normal , antepartum (Primary Dx); Mood disorder; Mild persistent asthma with acute exacerbation; History of delivery; Gastroesophageal reflux disease without esophagitis; Congenital duplication of uterus; Attention deficit hyperactivity disorder (ADHD), unspecified ADHD type; 36 weeks gestation of ; Transaminitis Social History Tobacco Use Types Packs/Day Years Used Date Smoking Tobacco: Never Smokeless Tobacco: Never Tobacco Cessation:Counseling Given: Not Answered Social Connection and Isolation Panel Answer Date Recorded In a typical week, how many times do you talk on the phone with family, friends, or neighbors? More than three times a week 07/06/2022 How often do you get togethe r with friends or relatives? More than three times a week 07/06/2022 How often do you attend chur ch or hinduism services? Never 07/06/2022 Do you belong to any clubs o r organizations such as lutheran groups, unions, fraternal or athletic groups, or [...] place to sleep or slept in a snf (including now)? No 07/06/2022 [place] Depression Scale Answer Date Recorded [place] Depression Scale Total 0 08/18/2022 The thought [...] on file Legal Sex Female 6:23 PM OPERATIONS TECH Gender Identity Female 07/18/2024 2:44 PM OPERATIONS TECH Sexual Orientation Straight 07/18/2024 2: 44 PM OPERATIONS TECH documented as of this encounter Last Filed Vital Signs Vital Sign Reading Time Taken Comments Blood Pressure 122/86 05/13/2025 9:35 AM OPERATIONS TECH Pulse - - Temperature - - Respiratory Rate - - Oxygen Saturation - - Inhaled Oxygen Concentration - - Weight 101.6 kg (224 lb) 05/13/2025 9:35 AM OPERATIONS TECH Height 162.2 cm (5' 3.86) 05/13/2025 9:35 AM CS T Body Mass Index 38.62 05/13/2025 9:35 AM OPERATIONS TECH documented in this encounter Functional Status * Edema Answer Date of Assessment Author No pitansley 05/13/2025 9:35 AM OPERATIONS TECH Nikko Mendoza MD documented as of this encounter Progress Notes * Anna Mendoza MD - 05/13/2025 9:30 AM CST EOB at 36w1d - Supervision of : tearful about being uncomfortable, large baby in R horn and feeling uncomfortable, desires delivery sooner - Reviewed growth US: EFW 3998g (>99%), AC >99%, FHT 132 bpm, transverse lie, DILAN 25.9 cm - Presented to [facility] on 05/08 for DFM with reassuring monitoring - Inpatient admission for tPTL from 05/04-05/05 - 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 - Mild polyhydramnios diagnosed 04/16: last DILAN 23.7 cm on 05/01 and 25.9 cm today - Hx of CS x2, planning on rCS - PreE in G1 - Anxiety/ADHD: works with psychiatrist, resumed Vyvanse and fluoxetine in given worsening mood, on latuda, last growth US on 04/16 - Mild anemia: resolved with PO iron, most recent Hb 12.1 on 05/04 - Transaminitis: CMP on 05/04 with ALT 79 (81 on 05/01), plan to repeat CMP - Asthma: works with pulmonology, albuterol PRN, symbicort - GERD: on omeprazole - GBS swab collected - 36 week teaching with CECILIA Gutierrez - MOD: rCS scheduled on 06/02 - MOC: considering options, experienced weight gain with last control option, counseling provided on options today - [facility] precautions reviewed ATIONS TECH * Matt Jorgensen RN - 05/13/2025 9:30 AM CST Met with Laura Wang today for 36 week education. Discussed signs of labor and pp bc. 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 Also informedthat social work will visit her in the hospital and baby will have a hearing and blood screening. Pt stated understanding. ATIONS TECH documented in this encounter Miscellaneous Notes * Addendum Note - Anna Mendoza MD - 05/13/2025 9:30 AM CSTAddended by: ANNA MENDOZA on: 05/13/2025 01:42 PM Modules accepted: Orders ATIONS TECH * Addendum Note - Susie Tony - 05/13/2025 9:30 AM CSTAddended by: SUSIE TONY on: 05/13/2025 01:56 PM Modules accepted: Orders ATIONS TECH documented in this encounter Plan of Treatment Upcoming Encounters Date Type Department Care Team (Late st Contact Info) Description 06/02/2025 8:30 AM OPERATIONS TECH Hospital Encounter [address] [address] Letitia Nicholas MD [address] [address] 06/02/2025 8:30 AM OPERATIONS TECH - 06/02/2025 10:56 AM OPERATIONS TECH Surgery [address] [address] Letitia Nicholas MD [address] [address] SECTION Scheduled Orders Name Type Priority Associated Diagnoses Orde r Schedule Comprehensive metabolic panel Lab Routine Supervision of other normal , antepartum Transaminitis Expected: 05/13/2025 (Approximate), Expires: 05/13/2026 Group B streptococcus culture, penicillin allergic Vaginal/Rectal Microbiology Routine Supervision of other normal , antepartum Expected: 05/13/2025, Expires: 05/13/2026 Scheduled Procedures Name Priority Associated Diagnoses Date/Ti me SECTION History of delivery 06/02/2025 8:30 AM OPERATIONS TECH documented as of this encounter Visit Diagnoses Diagnosis History of delivery- Primary Supervision of other normal , antepartum- Primary Mood disorder Unspecified episodic mood disorder Mild persistent asthma with acute exacerbation History of delivery Gastroesophageal reflux disease without esophagitis Esophageal reflux 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
[2025-05-13 13:10] LABS: Hematocrit 37.0 % (37.0-47.0); Hemoglobin 12.3 g/dL (12.0-15.0); Immature Granulocyte Percent A 0.8 % (0-0.5); Lymphocytes Absolute Auto 2.58 K/mm3 (0.9-3.2); Mean Corpuscular HGB Conc 33.2 g/dl (32-36); Mean Corpuscular Hemoglobin 32.3 pg (26-34); Mean Corpuscular Volume 97.1 fl (80-100); Nucleated Red Blood Cells Absolute Auto 0.000 K/mm3 (0.0-0.012); Nucleated Red Blood Cells Perc 0.0 % (0.0-0.2); Platelet Count Result 242 k/mm3 (150-375); Red Blood Count 3.81 M/mm3 (4.2-5.4); White Blood Count 15.8 K/mm3 (4.5-10.0)
[2025-05-13 13:13] LABS: Schistocytes None Seen
[2025-05-13 13:17] LABS: Anisocytosis 1+
--- OUTSIDE RECORDS SUMMARY | 2025-05-13 14:33 | XMS_ITS | Encounter Summary ---
Author Organization [facility] Address [address] [place] [address] Phone Care Team Providers Care Vp Digital Marketing Social Media And Crm Name Role Phone Jabari Reynaga MD Primary Care Provider [phone] Encounter Details Date Type Department Care Team (Late st Contact Info) Description 05/07/2025 Results Follow-Up [facility] Medicine Obstetrics and Gynecology [address] [facility] 7th Floor [address] [place] [address] Yun Montoya MD [address] [facility] [id number] [place], [place] [id number] Bile acids Social History Tobacco Use Types Packs/Day Years [...] often do you attend chur ch or shinto services? Never 07/06/2022 Do you belong to any clubs o r organizations such as jain groups, unions, fraternal or athletic groups, or [...] place to sleep or slept in a assisted (including now)? No 07/06/2022 [place] Depression Scale Answer Date Recorded [place] Depression Scale Total 0 08/18/2022 The thought [...] on file Legal Sex Female 6:23 PM ETHANOL MAINTENANCE MECHANIC Gender Identity Female 07/18/2024 2:44 PM ETHANOL MAINTENANCE MECHANIC Sexual Orientation Straight 07/18/2024 2: 44 PM ETHANOL MAINTENANCE MECHANIC documented as of this encounter Functional Status * Difference in Last Two Jose David Scores Answer Date of Assessment Author -2 05/08/2025 6:15 PM ETHANOL MAINTENANCE MECHANIC Manju Shanks RN * Marshall Fall Risk Question Answer Date of Assessment Author History of Falling 0 05/08/2025 6:15 PM ETHANOL MAINTENANCE MECHANIC Nava Shanks RN Secondary Diagnosis 15 05/08/2025 6:15 PM Nava Huang RN Ambulatory Aids 0 05/08/2025 6:15 PM ETHANOL MAINTENANCE MECHANIC Nava Guevara RN Intravenous Therapy/Heparin/Saline Lock 20 05/08/2025 6:15 PM Manju Barrera RN Gait/Transferring 0 05/08/2025 6:15 PM ETHANOL MAINTENANCE MECHANIC Nava Shanks RN Mental Status 0 05/08/2025 6:15 PM ETHANOL MAINTENANCE MECHANIC Nava Shanks RN Marshall Fall Risk Score (Score >= 45 places fall precaution order) 35 05/08/2025 6:15 PM Nava Barrera RN Prior Fall Event (Autopopulated from EMR) None found 05/08/2025 6:15 PM Gil Barrera RN * Jose David Scale Question Answer Date of Assessment Author Sensory Perceptions 4 05/08/2025 6:15 PM Nava Huang RN Moisture 4 05/08/2025 6:15 PM Nava Barrera RN Activity 4 05/08/2025 6:15 PM Nava Barrera RN Mobility 4 05/08/2025 6:15 PM Nava Barrera RN Nutrition 3 05/08/2025 6:15 PM Nava Barrera RN Friction and Shear 3 05/08/2025 6:15 PM Nava Barrera RN Jose David Scale Score 22 05/08/2025 6:15 PM Nava Barrera RN * Fall Risk Interventions Question Answer Date of Assessment Author All Low Fall Interventions Applied Yes 05/08/2025 6:15 PM Nava Barrera RN All Moderate Fall Interventions Applied No 05/08/2025 6:15 PM Nava Barrera RN All Moderate Fall Risk Interventions EXCEPT: OT eval requested or obtained;PT eval requested or obtained;Gait belt at bedside 05/08/2025 6:15 PM Nava Barrera RN Reason For Exception(s) Pt A&Ox4, uses c all light, BMAT 4 05/08/2025 6:15 PM Nava Barrera RN * B.M.A.T. - Bedside Mobility Assessment Tool for Nurses Question Answer Date of Assessment Author Is patient able to participate in the BMAT? Yes 05/08/2025 7:15 PM Jovanna Omalley RN BMAT Level Level 4 - Green 05/08/2025 7:15 PM Jovanna Kaur RN * Question Answer Date of Assessment Author 1. Has the patient self-reported, presented with clinical signs of, or have a documented history of any of the following within the past 30 days? No 05/08/2025 6:15 PM Nava Barrera RN * Question Answer Date of Assessment Author Is the patient being treated today because it is known or suspected that they prepared, started, or tried to end their life? No 05/08/2025 6:00 PM Nava Barrera RN * Question Answer Date of Assessment Author 1. In the past month, have you wished you were or that you could go to sleep and not wake up? No 05/08/2025 6:00 PM Nava Barrera RN 2. In the past month, have you actually had any thoughts of killing yourself? No 05/08/2025 6:00 PM Nava Barrera RN 6. Have you ever done anything, started to do anything, or prepared to do anything to end your life? No 05/08/2025 6:00 PM Mami Barrera RN * Suicide Risk Level Answer Date of Assessment Author No risk level 05/08/2025 6:00 PM Manju Barrera RN * Self-Injurious Risk Level Answer Date of Assessment Author No risk level 05/08/2025 6:15 PM Manju Barrera RN * Pressure Injury Prevention Question Answer Date of Assessment Author Pressure Ulcer Prevention Interventions Keep skin clean and dry (Sensory Perception/Moistur e) 05/08/2025 6:15 PM Nava Barrera RN * Integumentary Question Answer Date of Assessment Author Integumentary (WDL) WDL 05/08/2025 7:15 PM Jovanna Davies, CECILIA * Question Answer Date of Assessment Author RLE Edema +1 05/08/2025 6:15 PM Nava Barrera RN LLE Edema +1 05/08/2025 6:15 PM Nava Barrera RN Edema Right lower extremit y;Left lower extremity 05/08/2025 6:15 PM Nava Barrera RN * Fall Risk Interventions Question Answer Date of Assessment Author All Low Fall Interventions Applied Yes 05/08/2025 6:15 PM Nava Barrera RN All Moderate Fall Interventions Applied No 05/08/2025 6:15 PM Nava Barrera RN All Moderate Fall Risk Interventions EXCEPT: OT eval requested or obtained;PT eval requested or obtained;Gait belt at bedside 05/08/2025 6:15 PM Nava Barrera RN Reason For Exception(s) Pt A&Ox4, uses c all light, BMAT 4 05/08/2025 6:15 PM Nava Barrera RN * Hygiene Question Answer Date of Assessment Author Hygiene Level of Assistance Independent 05/08/2025 6:15 PM Nava Barrera RN Bath Not bathed/showered 05/08/2025 6:15 PM CS T Nago, Nava Aleyda, RN documented as of this encounter Plan of Treatment Upcoming Encounters Date Type Department Care Team (Late st Contact Info) Description 06/02/2025 8:30 AM ETHANOL MAINTENANCE MECHANIC Hospital Encounter [address] [address] Letitia Nicholas MD [address] [address] 06/02/2025 8:30 AM ETHANOL MAINTENANCE MECHANIC - 06/02/2025 10:56 AM ETHANOL MAINTENANCE MECHANIC Surgery [address] [address] Letitia Nicholas MD [address] [address] SECTION Scheduled Procedures Name Priority Associated Diagnoses Date/Ti me SECTION History of delivery 06/02/2025 8:30 AM ETHANOL MAINTENANCE MECHANIC documented as of this encounter Visit Diagnoses Not on filedocumented in this encounter Care Teams Vp Digital Marketing Social Media And Crm Relationship Specialty Start Date End Date Jabari Reynaga MD [address] [place] [id number] PCP - General Internal Medicine 03/13/25 documented as of this encounter
--- OUTSIDE RECORDS SUMMARY | 2025-05-13 14:33 | XMS_ITS | Patient Health Record ---
Author Organization [facility] Address [address] [place] [address] Care Team Providers Care Plant Packer Name Role Phone Fadi Flower Primary Care Provider [phone] Jabari Reynaga Unavailable [phone] Letitia Ellison Unavailable [phone] Allergies Allergen (clinical drug ingredient) Drug/Non Drug [...] A1c* Reviewed date:06/20/2024 04:51:40 PM Interpretation:Normal Performing Lab:[facility] [place], [address] [facility], Phone - [phone], Director - Stephon Notes/Report: Hemoglobin A1c 5.4 4.8-5.6 % . Prediabetes: 5.7 - 6.4 Diabetes: >6.4 Glycemic control for adults with diabetes: <7.0 CBC With Differential/Platel et* Reviewed date:06/20/2024 04:51:40 PM Interpretation:Abnormal Performing Lab:[facility] [place], [address] [facility], Phone - [phone], Director - PhDNedra Notes/Report: WBC 8.8 3.4-10.8 [...] 25-Hydroxy* Reviewed date:06/20/2024 04:51:40 PM Interpretation:Low Performing Lab:[facility] [address] [facility], Phone - [phone], Director - Stephon Notes/Report: Vitamin D, 25-Hydroxy 17.5 30.0-100.0 ng/mL Vitamin D deficiency has been defined by the [place] of [employer] and an Endocrine Society practice guideline as a level of serum 25-OH vitamin D less than 20 ng/mL (1,2). The Endocrine Society went on to further define vitamin D insufficiency as a level between 21 and 29 ng/mL (2). 1. IOM ([place] of [employer]). 2010. Dietary reference intakes for calcium and D. [place]: The National Academies Press. 2. Osei MF, Laurita NC, Lashonda WOO, et al. Evaluation, treatment, and prevention of vitamin D deficiency: an Endocrine Society clinical practice guideline. JCEM. 2010; 96(7):1911-30. Lipid Panel* Reviewed date:06/20/2024 04:51:40 PM Interpretation:Abnormal Performing Lab:[facility], [address] [facility], Phone - [phone], Director - [facility] Notes/Report: Cholesterol, Total 207 100-199 mg/dL Triglycerides 99 0-149 mg/dL HDL Cholesterol 58 >39 mg/dL VLDL Cholesterol Silvano 18 5-40 mg/dL LDL Chol Calc (NIH) 131 0-99 mg/dL CMP 14 Comprehensive Metabol ic Panel* Reviewed date:06/20/2024 04:51:40 PM Interpretation:Abnormal Performing Lab:[facility], [address] [facility], Phone - [phone], Director - [facility] Notes/Report: Glucose 89 70-99 mg/dL BUN 14 [...] T4 Reviewed date:06/20/2024 04:51:40 PM Interpretation:Normal Performing Lab:[facility], [address] [facility], Phone - [phone], [facility]/Report: TSH 1.580 0.450-4.500 uIU/mL CBC With Differential/Platel et* Reviewed date:07/08/2024 05:02:36 PM Interpretation: Performing Lab:[facility], [address] [facility], Phone - [phone], [facility]/Report: WBC 11.3 3.4-10.8 x10E3/uL RBC 4.23 [...] Quant Reviewed date:07/08/2024 05:02:36 PM Interpretation: Performing Lab:[facility] [place], [address] [facility], [place], Phone - [phone], Director - Stephon Notes/Report: C-Reactive Protein, Quant 1 0-10 mg/L Test, Urine Reviewed date:10/15/2024 03:25:22 PM Interpretation: Performing Lab: Notes/Report: Test, Urine POS Negative - Negative Reason For Referral Reason Hx. of thrombocytosi s with elevated WBCs, frequent bruising Diagnosis 1 Elevated white blood cell count, unspecified (D72.829) Diagnosis 2 Thrombocytosis (D75. 839) Referral Organization [facility] Referring Provider First Name Letitia Referring Provider Last Name Short Ref[facility] [place] [facility] H[facility]ology Referred Provider Specialty Hematology/O ncology General Notes Current patient: todd weinberg new referral to Dr. Eddie Parish, [place], Tracey Saul 07/22/2024 04:12:47 PM >refaxed to Hematology office per patient request as office states they did not receive the labs. Clinical Notes [facility], [address], [place]. [address], , Referral Priority Routine Medications Medication SIG (Take, Route, Frequency, Duration) Notes Start Date End Date Status metFORMIN HCl 500 MG Oral; Duration: 90 Days Not-Taking Vyvanse 50 MG 1 capsule in the morning Orally Once a day; Duration: 30 days 05/06/2025 Active Vitamin D (Ergocalciferol) 05030 UNIT 1 capsule Orally once a week for 8 weeks; Duration: 60 days 06/20/2024 Not-Taking methylPREDNISolone 4 MG Oral; Duration: 6 Days Not-Taking levoFLOXacin 750 MG Oral; Duration: 7 Days Not-Taking Iron 28 MG 1 tablet Orally daily (65g tablet) Active Omeprazole 40 MG 1 capsule 1/2 to 1 hour before morning meal Oral Once a day; Duration: 30 days Not-Taking Baby Aspirin Active Vyvanse 50 MG 1 capsule in the morning Orally Once a day; Duration: 30 days 07/01/2025 Active Fluticasone Propionate 50 MCG/ACT 1 spray in each nostril Nasally Twice a day; Duration: 30 days 08/13/2024 Not-Taking 28-0.8 MG 1 tablet Orally Once a day Active Cyclobenzaprine HCl 5 MG 1 tablet at bedtime as needed Orally Once a day; Duration: 30 days As needed 06/17/2024 Not-Taking Vyvanse 50 MG 1 capsule in the morning Orally Once a day; Duration: 30 days 06/03/2025 Active Clindamycin HCl 300 MG 1 capsule Orally every 12 hrs; Duration: 7 days 06/25/2024 Not-Taking Victoza 18 MG/3ML Subcutaneous; Duration: 30 Days Not-Taking Lurasidone HCl 40 MG 1 tablet in the evening with food Orally Once a day; Duration: 30 days 11/29/2024 Active Omeprazole 40 MG 1 capsule 1/2 to 1 hour before morning meal Orally Once a day; Duration: 30 days 01/15/2025 Active Promethazine-DM 6.25-15 MG/5ML 5 mL as needed Orally every 6 hrs; Duration: 21 days 08/13/2024 Not-Taking FLUoxetine HCl 20 MG 3 capsules Orally Once a day; Duration: 30 days 09/29/2023 Active Chlorhexidine Gluconate 0.12 % 15 mL swish for 30 seconds, then spit. Do not swallow. Mouth/Throat Twice a day; Duration: 30 days 06/25/2024 Active Social History Tobacco Use: Social History Observation Description Date Details (start date - stop date) Never Smoker NA - NA Sex Assigned At : Social History Observation Description Sex Assigned At Female Tobacco Control (Standard) Question Answer Notes Tobacco use: Nonsmoker Problems Problem Type SNOMED Code ICD Code Onset Dates Problem Status W/U Status Risk Notes Problem Leukocytosis (568573316) Elevated white blood cell count, unspecified (D72.829) Active confirmed Problem Mood disorder (92418475) Mood disorder (F39) Active confirmed Problem Attention deficit hyperactivity disorder (525773235) ADHD (attention deficit hyperactivity disorder), combined type (F90.2) Active confirmed Problem Vitamin D deficiency (69454038) Vitamin D deficiency (E55.9) Active confirmed Problem Generalized anxiety disorder (77374070) SUJIT (generalized anxiety disorder) (F41.1) Active confirmed Problem Missed period (73110616) Missed menses (N92.6) Active confirmed Problem Overweight (961540280) Over weight (E66.3) Active confirmed Problem Laboratory test result abnormal (903138014) Abnormal laboratory test result (R89.9) Active confirmed Problem Greer's esophagus (458952133) Greer''s esophagus without dysplasia (K22.70) Active confirmed Vital Signs Heart Rate 96 /min 04/01/2025 Respiratory Rate 16 /min 04/01/2025 Blood pressure diastolic 70 mm Hg 04/01/2025 Oximetry 99 % 04/01/2025 Height 64 inches in 04/01/2025 Blood pressure systolic 104 mm Hg 04/01/2025 Weight 193.6 lbs lbs 04/01/2025 BMI 33.23 kg/m2 04/01/2025 Encounters Encounter Location Date Provider Diagnosis [facility] [address] [place] [address] 06/04/2024 Flower Aponte ADHD (attention deficit hyperactivity disorder), combined type F90.2 ; SUJIT (generalized anxiety disorder) F41.1 and Mood disorder F39 [facility] [address] [place] [address] 06/17/2024 Letitia Ellison Muscle spasm of back M62.830 ; Establishing care with new doctor, encounter for Z71.89 ; Screening for deficiency anemia Z13.0 ; Screening for metabolic disorder Z13.228 ; Screening for diabetes mellitus Z13.1 ; Screening for thyroid disorder Z13.29 and Screening for hyperlipidemia Z13.[address] [place] [address] 06/18/2024 Letitia Ellison Screening for diabet es mellitus Z13.1 ; Screening for deficiency anemia Z13.0 ; Screening for hyperlipidemia Z13.220 ; Screening for metabolic disorder Z13.228 and Screening for thyroid disorder Z13.[address] [address] 07/05/2024 Letitia Ellison Abnormal laboratory test result R89.[address] [address] 07/10/2024 Letitia Ellison Follow up Z09 ; Thrombocytosis D75.839 ; Elevated white blood cell count, unspecified D72.829 ; Dyspnea on exertion R06.09 and Nutritional counseling Z71.3 [facility] [address] [place] [address] 08/22/2024 Flower Aponte ADHD (attention deficit hyperactivity disorder), combined type F90.2 ; SUJIT (generalized anxiety disorder) F41.1 and Mood disorder F39 [address] [address] 09/18/2024 Letitia Ellison Eczema L30.[address] [address] 11/29/2024 Flower Aponte ADHD (attention deficit hyperactivity disorder), combined type F90.2 ; Mood disorder F39 ; SUJIT (generalized anxiety disorder) F41.1 and Over weight E66.3 [facility] [address] [place] [address] 01/01/2025 Flower Aponte ADHD (attention deficit hyperactivity disorder), combined type F90.2 ; SUJIT (generalized anxiety disorder) F41.1 and Mood disorder F39 [address] [place] [address] 01/15/2025 Jabari Reynaga Over weight E66.3 an d Greer''s esophagus without dysplasia K22.70 [facility] [place] [address] 02/05/2025 Flower Aponte ADHD (attention deficit hyperactivity disorder), combined type F90.2 and SUJIT (generalized anxiety disorder) F41.1 [facility] [address] [place] [address] 04/01/2025 Flower Aponte Over weight E66.3 ; Mood disorder F39 ; ADHD (attention deficit hyperactivity disorder), combined type F90.2 and SUJIT (generalized anxiety disorder) F41.1 [facility] [place] [address] 05/06/2025 Flower Aponte ADHD (attention deficit hyperactivity disorder), combined type F90.2 and SUJIT (generalized anxiety disorder) F41.[address] [place] [address] 06/20/2024 Letitia Ellison Abnormal laboratory test result R89.9 and Vitamin D deficiency E55.[address] [place] [address] 06/25/2024 Letitia Ellison Dental abscess K04.[address] [place] [address] 07/08/2024 Letitia Ellison [facility] [address], [place] [address] 07/11/2024 Letitia Ellison [address] [place] [address] 07/16/2024 Flower Aponte Mood disorder F39 [address] [place] [address] 08/13/2024 Letitia Ellison Nasal congestion R09.81 and Cough R05.9 [facility] [address] [place] [address] 09/11/2024 Flower Aponte ADHD (attention deficit hyperactivity disorder), combined type F90.2 [facility] [address] [place] [address] 09/11/2024 Letitia Ellison [address] [place] [address] 09/25/2024 Letitia Ellison [address] [address] 10/15/2024 Letitia Ellison Missed menses N92.[address] [place] [address] 10/15/2024 Flower Aponte [address] [address] 10/15/2024 Letitia Ellison [address] [address] 11/01/2024 Flower Aponte [address] [place] [address] 12/25/2024 Flower Aponte [facility] [address] [place] [address] 01/01/2025 Flower Aponte [address] [place] [address] 02/07/2025 Jabari Reynaga Dental abscess K04.[address] [place] [address] 03/03/2025 Flower Aponte [address] [place] [address] 03/25/2025 Jabari Reynaga [address] [place] [address] 07/18/2024 Letitia Ellison Assessments Encounter Date Diagnosis (ICD Code) Assessment Notes Treatment Notes Treatment Clinical Notes Section Notes 06/04/2024 ADHD (attention deficit hyperactivity disorder), combined type (ICD-10 - F90.2) 06/17/2024 Muscle spasm of back (ICD-10 - M62.830) 06/17/2024 Establishing care with new doctor, encounter for (ICD-10 - Z71.89) 06/20/2024 Vitamin D deficiency (ICD-10 - E55.9) 06/20/2024 Abnormal laboratory test result (ICD-10 - R89.9) 06/25/2024 Dental abscess (ICD-10 - K04.7) 07/05/2024 Abnormal laboratory test result (ICD-10 - R89.9) 06/18/2024 Screening for diabetes mellitus (ICD-10 - Z13.1) 07/10/2024 Follow up (ICD-10 - Z09) 07/10/2024 Thrombocytosis (ICD-10 - D75.839) 07/16/2024 Mood disorder (ICD-10 - F39) 08/13/2024 Nasal congestion (ICD-10 - R09.81) 08/13/2024 Cough (ICD-10 - R05.9) 09/11/2024 ADHD (attention deficit hyperactivity disorder), combined type (ICD-10 - F90.2) 09/18/2024 Eczema (ICD-10 - L30.9) has been using steroid cream with no response. Advised to try emolient cream and RTC if no improvement 10/15/2024 Missed menses (ICD-10 - N92.6) 08/22/2024 ADHD (attention deficit hyperactivity disorder), combined type (ICD-10 - F90.2) 11/29/2024 ADHD (attention deficit hyperactivity disorder), combined type (ICD-10 - F90.2) Start LAtuda to help with mood instability. THe rest was sent by OB. Reviewed Prescription Monitoring program. Continue services as scheduled. Labs completed recently. May self-administer medications or be administered own oral medications per [place] protocols. Provided informed consent with understanding of side effects, adverse effects, risks and benefits as well as alternative treatments as previously discussed and with the above recommended medications & other aspects of the treatment program. Agrees to return sooner if symptoms worsen or suicidal or homicidal ideations occur. 01/01/2025 ADHD (attention deficit hyperactivity disorder), combined type (ICD-10 - F90.2) Continue current medications. Reviewed Prescription Monitoring program. Continue services as scheduled. Labs completed recently. May self-administer medications or be administered own oral medications per [place] protocols. Provided informed consent with understanding of side effects, adverse effects, risks and benefits as well as alternative treatments as previously discussed and with the above recommended medications & other aspects of the treatment program. Agrees to return sooner if symptoms worsen or suicidal or homicidal ideations occur. 01/15/2025 Over weight (ICD-10 - E66.3) 01/15/2025 Greer''s esophagus without dysplasia (ICD-10 - K22.70) 02/05/2025 ADHD (attention deficit hyperactivity disorder), combined type (ICD-10 - F90.2) 02/07/2025 Dental abscess (ICD-10 - K04.7) 04/01/2025 Over weight (ICD-10 - E66.3) 05/06/2025 ADHD (attention deficit hyperactivity disorder), combined type (ICD-10 - F90.2) 05/06/2025 SUJIT (generalized anxiety disorder) (ICD-10 - F41.1) 04/01/2025 Mood disorder (ICD-10 - F39) 02/05/2025 SUJIT (generalized anxiety disorder) (ICD-10 - F41.1) 01/01/2025 SUJIT (generalized anxiety disorder) (ICD-10 - F41.1) 06/18/2024 Screening for deficiency anemia (ICD-10 - Z13.0) 08/22/2024 SUJIT (generalized anxiety disorder) (ICD-10 - F41.1) 11/29/2024 Mood disorder (ICD-10 - F39) 07/10/2024 Elevated white blood cell count, unspecified (ICD-10 - D72.829) 06/17/2024 Screening for deficiency anemia (ICD-10 - Z13.0) 06/04/2024 SUJIT (generalized anxiety disorder) (ICD-10 - F41.1) 06/04/2024 Mood disorder (ICD-10 - F39) 06/17/2024 Screening for metabolic disorder (ICD-10 - Z13.228) 07/10/2024 Dyspnea on exertion (ICD-10 - R06.09) 06/18/2024 Screening for hyperlipidemia (ICD-10 - Z13.220) 08/22/2024 Mood disorder (ICD-10 - F39) 11/29/2024 SUJIT (generalized anxiety disorder) (ICD-10 - F41.1) 01/01/2025 Mood disorder (ICD-10 - F39) 04/01/2025 ADHD (attention deficit hyperactivity disorder), combined type (ICD-10 - F90.2) 04/01/2025 SUJIT (generalized anxiety disorder) (ICD-10 - F41.1) 11/29/2024 Over weight (ICD-10 - E66.3) 06/18/2024 Screening for metabolic disorder (ICD-10 - Z13.228) 06/17/2024 Screening for diabetes mellitus (ICD-10 - Z13.1) 06/18/2024 Screening for thyroid disorder (ICD-10 - Z13.29) 06/17/2024 Screening for thyroid disorder (ICD-10 - Z13.29) 07/10/2024 Nutritional counseling (ICD-10 - Z71.3) 06/17/2024 Screening for hyperlipidemia (ICD-10 - Z13.220) 06/04/2024 Other Continue current medications. Reviewed Prescription Monitoring program. Continue services as scheduled. Follow up with PCP. Labs ordered from PCP. May self-administer medications or be administered own oral medications per [place] protocols. Provided informed consent with understanding of side effects, adverse effects, risks and benefits as well as alternative treatments as previously discussed and with the above recommended medications & other aspects of the treatment program. Agrees to return sooner if symptoms worsen or suicidal or homicidal ideations occur. 08/22/2024 Other Continue current medications. Adding OTC Magnesium to help with sleep. She has appointments to follow up with specialists and with her son. She feels having more answers on her sons condition and getting treatment for him will help her anxiety. Reviewed Prescription Monitoring program. Continue services as scheduled. Labs completed recently. May self-administer medications or be administered own oral medications per [place] protocols. Provided informed consent with understanding of side effects, adverse effects, risks and benefits as well as alternative treatments as previously discussed and with the above recommended medications & other aspects of the treatment program. Agrees to return sooner if symptoms worsen or suicidal or homicidal ideations occur. 09/18/2024 Other Patient may self-administe r their own medications or may self-administe r their own oral medications per [place] Protocol. 02/05/2025 Other Increase lurasidone to help with mood instability. Reviewed Prescription Monitoring program. Continue services as scheduled. Labs completed recently. May self-administer medications or be administered own oral medications per [place] protocols. Provided informed consent with understanding of side effects, adverse effects, risks and benefits as well as alternative treatments as previously discussed and with the above recommended medications & other aspects of the treatment program. Agrees to return sooner if symptoms worsen or suicidal or homicidal ideations occur. 04/01/2025 Other Increase fluoxetine to help with anxiety. In 1 week, increase Vyvanse to help with inattention. Discussed with OB who is monitoring and recommending. Labs done recently. Continue services as scheduled. May self-administer medications or be administered own oral medications per [place] protocols. Provided informed consent with understanding of side effects, adverse effects, risks and benefits as well as alternative treatments as previously discussed and with the above recommended medications & other aspects of the treatment program. Agrees to return sooner if symptoms worsen or suicidal or homicidal ideations occur. 05/06/2025 Other Continue current medications. Labs done recently. Continue services as scheduled. Reviewed [employer] May self-administer medications or be administered own oral medications per [place] protocols. Provided informed consent with understanding of [...] Insured Coverage Start Date Coverage End Date [facility] [facility] [employer] [facility] Attn Claims Department [address] [place] [address] [phone] [id number] Laura Wang Self - patient is the insured 3 [employer] Attn Claims Department [address] [place] [address] [phone] [id number] Laura Wang Self - patient is the insured 3 Medical (General) History Medical History History ICD Code Pre-diabetic GERD Preeclampsia Surgical History Surgery Date(Month/Year) C section x 2 Tonsillectomy 5 years of age scheduled 06/02/2025 Hospitalization History Reason Date(Month/Year)
--- OUTSIDE RECORDS SUMMARY | 2025-05-13 14:33 | XMS_ITS | Clinical Summary ---
Author Organization [facility] Address [address] [place] [address] Care Team Providers Care Traffic Counter Name Role Phone Unavailable Primary Care Provider Unavailabl e Source Comments [facility],non-owned Affiliates and Associated Physician Practices is amultiple site organization consisting of ambulatory clinics and hospital sitesin [place], [place], [place] and [place]. This disclosure is being madepursuant to the Care Everywhere program and may not contain all information available regarding this patient. Last updated 18.[facility] Allergies Active Allergy Reactions Criticality Noted Date [...] on file Legal Sex Female 6:12 PM [employer] Gender Identity Not on file Sexual Orientation Not on file Plan of Treatment Health Maintenance Due Date Last Done Comments HIV SCREENING 2011 HEPATITIS C SCREENING 06/23/2014 HEPATITIS B VACCINE (1 of 3 - 19+ 3-dose series) 2015 PAP SMEAR 2017 HPV VACCINE (1 - 3-dose SCDM series) 2023 DEPRESSION SCREENING 06/19/2024 COVID-19 VACCINE (1 - 2024-2 6 season) 2025 INFLUENZA VACCINE (#1) 2025 2, 05/05/2017 DTAP/TDAP/TD VACCINES (2 - T d [...] patient's age to complete this topic Insurance [facility]
--- OUTSIDE RECORDS SUMMARY | 2025-05-13 14:33 | XMS_ITS | Patient Health Record ---
Author Organization [facility] Address [address] [facility] [address] [place] [address] Care Team Providers Care Enroute Controller Name Role Phone Letitia Foster Unavailable [phone] Reason For Referral No Information Medications Medication SIG (Take, Route, Frequency, Duration) Notes Start Date End Date Status Escitalopram Oxalate 5 MG Tablet Oral 03/02/2020 Active Cetirizine HCl 10 MG Tablet Oral 03/02/2020 Active Fluticasone Propionate Diskus 50 MCG/ACT Aerosol Powder Breath Activated Inhalation *Reorder from 9Cookies for eRx and Interaction Alerts* 03/02/2020 Active Doxycycline Hyclate 100 MG Capsule Oral 03/02/2020 Active Social History Social History Additional Details Category Social Info Options Details Migrated Social History Migrated Social History Alcohol Intake: Occasional 03/02/2020,Tobacco Years: Never smoker 03/02/2020 Plan Of Treatment No Information Insurance Providers Payer Name Payer Address Payer Phone Subscriber Number Group Number Insured Name Patient Relationship to Insured Coverage Start Date Coverage End Date [employer] [address] [place] [phone] [id number] MIRANDA CRUZ Child - Insured has Financial Responsibility
--- OUTSIDE RECORDS SUMMARY | 2025-05-13 14:33 | XMS_ITS | Clinical Summary ---
Author Organization [facility] Address [address] [place] [address] Care Team Providers Care Clinical Informatics Specialist Name Role Phone Jabari Reynaga MD Primary Care Provider Allergies Active Allergy Reactions Criticality Noted Date Comments Amoxicillin Hives,Vomiting Medium 05/10/2022 Codeine Hives,Unknown,Vomiti ng,Rash,Other (See comments) Medium 05/05/2017 Hydrocodone Hives,Vomiting,Other (See comments) Medium 05/05/2017 Levofloxacin Vomiting,Nausea & Vomiting Low 024 Penicillins Hives,Unknown,Vomiti ng,Other (See comments),Rash Medium 05/05/2017 Medications albuterol HFA (PROVENTIL HFA,VENTOLIN HFA,PROAIR HFA) 90 mcg/actuation inhalerIndication s:Shortness of breath Inhale 2 puffs every 6 (six) hours as needed for wheezing 3 each 4 06/06/20 24 025 Active inhalational spacing device ([facility]ita [facility]) spacer 1 DEVICE NEEDED Active prenat.vits,daysi,m [id number] tablet Take by mouth Active lurasidone (LATUDA) 20 mg tablet 11/30/19 25 Active omeprazole (PriLOSEC) 40 mg capsule Take 1 capsule (40 mg total) by mouth daily 30 capsule 3 12/25/19 25 Active cetirizine (ZyrTEC) 10 mg tablet Oral 03/02/20 20 Active ferrous sulfate 325 mg (65 mg of elemental iron) tabletIndications :Iron Deficiency Anemia Take 1 tablet (325 mg total) by mouth every other day 60 tablet 1 01/24/20 25 Active benzonatate (TESSALON) 100 mg capsuleIndication s:Cough Take 1 capsule (100 mg total) by mouth 3 (three) times a day as needed for cough 30 capsule 04/23/20 25 Active budesonide-formot [place] (SYMBICORT) 80-4.5 mcg/actuation inhalerIndication s:Maintenance Therapy for Asthma Inhale 2 puffs 2 (two) times a day Rinse mouth with water after use. Do not swallow. 1 each 3 04/23/20 25 Active lisdexamfetamine (VYVANSE) 50 mg capsule Take 1 capsule (50 mg total) by mouth every morning Active FLUoxetine (PROzac) 20 mg tablet Take 3 tablets (60 mg total) by mouth daily Active cefdinir (OMNICEF) 300 mg capsuleIndication s:Upper Respiratory/HEENT Infection Take 1 capsule (300 mg total) by mouth 2 (two) times a day for 7 days 14 capsule 05/11/20 25 025 Active fluticasone propionate (FLONASE) 50 mcg/actuation nasal spray 08/13/19 25 025 Discontin ued(Patie nt Reported) albuterol-budeson real (Airsupra) 90-80 mcg/actuation HFA aerosol inhaler Inhale 2 Inhalations every 6 (six) hours as needed (Dyspnea, wheezing, cough) Please rinse mouth after use. Do not swallow. 10.7 g 10/24/19 025 Discontin ued(Stop Taking at Discharge ) FLUoxetine (PROzac) 20 mg capsuleIndication s:Supervision of other normal , antepartum,Genera lized anxiety disorder Take 2 capsules (40 mg total) by mouth daily 60 capsule 11 12/27/19 25 025 Discontin ued(Alter suzy therapy) lisdexamfetamine (VYVANSE) 40 mg capsuleIndication s:Supervision of other normal , antepartum,Attent ion deficit hyperactivity disorder (ADHD), combined type Take 1 capsule (40 mg total) by mouth every morning 30 capsule 12/31/19 25 025 Discontin ued(Alter suzy therapy) aspirin 81 mg chewable tablet Baby Aspirin 025 Discontin ued(Patie nt Reported) guaiFENesin ER (MUCINEX) 600 mg 12 hr tablet Take 1 tablet (600 mg total) by mouth 2 (two) times a day as needed for cough 30 tablet 04/23/20 025 Discontin ued(Patie nt Reported) Active Problems Problem Noted Date Diagnosed Date labor without delivery 05/04/2025 History of delivery 03/20/2025 Mood disorder 01/23/2025 Mild persistent asthma with acute exacerbation 0 11/28/2024 Supervision of other normal , antepartu m 10/16/2024 Overview (05/13/2025): -didelphys 2 uteri and 2 cervices, in right side.Probable short Vaginal septum -previous did serial growth US -h/o pre-e in G1 -h/o pLTCS in G1 @ 37.0 for pre-e, breech, and low lying placenta, op note in media, confirmed LTCS -asthma, on Symbicort BID + albuterol PRN -Pt has absent left kidney -Anxiety and ADHD- stopped fluoxetine and lamotrigine about 6 weeks. Also stopped Vyvance for ADHD > restarted at 12 wks due to worsening mood - Plan fr serial growth US -PCOS: stopped metformin, for A1c and early diabetes screening -PCN allergy- hives/vomiting, never had cephalosporins--for Clinda/gent for C/S prophylaxis -mild anemia, feso4 -Resolved @ 34wks, mild polyhydramnios dx 04/16 -rLTCS 06/02/25 @ 0600arr/0830start, pt aware, labs ordered, clinda/gent ordered -elevated ALT and proteinuria 04/25, decreasing, but elevated ALT 05/04. ?repeat CMP -adm to [facility] 05/04 for rPTL, SVE 1cm, NML bile acids [x] Initial BMI: 30.24 [x] Labs: Labs: Lab Results Component Value Date ABORH O Positive 10/31/2024 IDCOOMB Negative 10/31/2024 [id number] Nonreactive 10/31/2024 LABRPR Nonreactive 10/31/2024 RUBELIGG Reactive 10/31/2024 HEPBSAG Nonreactive 10/31/2024 [x] Genetic Screening: NML cfDNA [x] Baby ASA: yes @ 12 weeks [x] 1hr GCT at 24-28wks: NML 123 [x] Tdap (27-36wks):03/20/2025 MM [x] Flu Shot:03/20/2025 MM [x] RSV Vaccine in season (32.0-36.6): MM 05/01/2025 [] COVID vaccine: [] Rhogam (if Rh neg): n/a O+ [x] GBS at 36 wks: pending [x] Pumping and formula feeding [x] control method: declines [x] 39 weeks discussion of IOL vs. Expectant management: rLTCS [x] Mode of delivery: rLTCS [x] For C/S bottle of CHG 4% and hand out provided @ 36wks [place], [facility] [place] Teaching: [x] 1st visit [x] 28-30 week [x] 36 week HPV Vaccine counseling (<=26 yo): [x] Completed vaccine series [] To be ordered prior to discharge on [] To receive at visit [] Declined s/p counseling [] Not applicable PCOS (polycystic ovarian syndrome) 10/13/2023 Assessment & Plan (10/13/2023 4:44 PM CDT): Newly dx'ed PCOS based on elevated testosterone levels and irregular menses. US imaging with normal appearing ovaries. Pt with dx of T2DM and mildly elevated cholesterol (no meds at this time). Has had difficulty with weight loss after this 2nd and really has struggled being on any form of control in the past and declines usage. No desire to get immediately. Has had lots of time between pregnancies and not getting for years without any form of contraception. Has menses that are irregular but still occurs every month. Will notify me if menses start spacing out. Desires to trial metformin to see how much this may additionally help the insulin resistance element and weight loss desire. Rx given. Continues to be followed closely by her PCP for DM and cholesterol. Attention deficit hyperactivity disorder 024 Melanocytic nevi of trunk 06/06/2023 Seborrheic keratosis 06/06/2023 Upper respiratory infection 05/14/2023 Hyperlipidemia 05/14/2023 Gastroesophageal reflux disease without esophagi tis 02/13/2023 Prediabetes 12/23/2022 Sleep apnea 11/25/2022 H/O section 07/05/2022 Overview (07/05/2022): 1. Scheduled repeat : Admit to L&D. Consents signed and placed in chart. Labs: CBC and T&S pending. section after labs return. 2. FWB: Continuous monitoring. tracing category I 3. ID: 3rd trimester HIV (>28 wga) negative on 06/06. GBS negative on 06/22. RPR on admission: negative. Membrane Status: intact. #PCN allergy: hives/vomiting, for Clinda/gent for C/S PPx 4. Indications for UDS: none. Verbal consent obtained for UDS: No 5. MOF: Plans to breastfeed. Urine drug screen not indicated. Patient informed of results: N/A 6. MOC: Undecided on contraception., to address 7. Pain management: Per anesthesia. 8. Post DVT prophylaxis: The patient has the following MAJOR risk factors none and the following MINOR risk factors BMI 30-39 and delivery. enoxaparin 40 mg daily will be ordered for VTE prophylaxis . 9. COVID Vaccine Status: Not assessed 10. COVID Test Status: Test not indicated 11. Uterine didelphys/Absent maternal L kidney: 2 uterus/2 cervix, in L side, Negative SOFTWARE SPECIALIST/SMA/NIPT 12. Migraines: No current meds 13. ^1hr, normal 3hr 14. LGA: AC 97% on 06/08 15. 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 Estimated Date of Delivery Comme nts Yes 06/09/2025 Based on Ultraso und Resolved Problems Problem Noted Date Diagnosed Date Resolved Date Well woman exam 08/26/2023 10/16/2024 Assessment & Plan (08/26/2023 3:20 PM RECEIVER BULK SYSTEM): Cervix- pap obtained from [facility] uterus: 2 paps obtained today and sent off Breast- normal exam findings STI screen- patient declined control- discussion below HCM Screening History Date of Last Pap if Known: none per [facility] History of Abnormal Paps: No Ever had an HPV vaccine?: Yes Number of doses received: 3 doses completed Ever had a mammogram?: No Ever had a colonoscopy?: No Ever had a bone-density test?: No Abnormal uterine bleeding (AUB) 08/25/2023 10/16/2024 Assessment & Plan (08/26/2023 3:21 PM RECEIVER BULK SYSTEM): Evaluate for etiologies for AUB: ordered Testosterone, DHEAS, PRL; normal TSH with PCP; check formal bending frame operator US Discussed options and will consider progesterone only pills to attempt to have cycle regulation Pt very concerned about weight gain- has been working hard to get weight off and has been struggling to lose the weight and keep it off. Does not like to take medications at baseline and concerned since has a h/o being on COCs with the inability to lose weight until going off that med. Will try slynd as a progesterone only as a trial. Elevated liver enzymes 08/14/202310/16 Symptoms involving urinary system 07/13/2023 10/16/2024 Unable to concentrate 05/14/20232024 Obesity 12/23/2022 10/16/2024 Leukocytosis 11/28/2022 10/16/2024 Fatigue 11/25/2022 10/16/2024 Hot flash not due to menopause 11/25/2022 10/16/2024 Skin lesion 11/25/2022 10/16/2024 Weight gain 11/25/2022 10/16/2024 state 07/05/2022 07/17/2023 Overview (07/07/2022): # ID: Afebrile. No signs/symptoms of infection. #COVID-19: Test not indicated # Heme: EBL 350 mL. No symptoms acute blood loss anemia. Preop Hgb 12.8 > 11.4 POD#1 Hgb 10.7 # CV/Pulm: #Tachycardia: Persistently tachycardic in 100-120s on POD#0. HR <100 on POD#1. EKG sinus tach, otherwise normal, TSH WNL. No evidence of excessive bleeding. Tachycardia resolved on POD2. # GI/: Tolerating PO. Voiding spontaneously. # Migraines: No current meds # Pain: Controlled with above regimen. # Post DVT prophylaxis: The patient has the following MAJOR risk factors none and the following MINOR risk factors BMI 30-39 and delivery. enoxaparin 40 mg daily ordered for VTE prophylaxis. # MOC: Declines until visit # MOF: . Urine drug screen not indicated. Patient informed of results: N/A. # COVID Vaccination Status: Previously received # Disposition: Follow up to be scheduled with primary OB. Desires discharge home today. History of delivery 05/26/2022 10/16/2024 Overview (06/15/2022): Added automatically from request for surgery [id number] Supervision of other normal , antepartum 05/03/2022 07/17/2023 Overview (06/29/2022): Partner Oscar -AIDEN @ 31wks, records in media -anatomy pg 11, nml anterior placenta no previa -didelphys 2 uteri and 2 cervices, in left side.Probable short Vaginal septum -serial growth US being done @ [facility], last completed 04/21/22 EFW 71%--next growth US 06/08 -h/o pre-e in G1, on ASA. Last BP @ appt 05/05/22 140s/80s x2, otherwise nml Bps this preg -h/o pLTCS in G1 @ 37.0 for pre-e, breech, and low lying placenta, op note in media, confirmed LTCS -Pt desires rLTCS -Pt has absent left kidney based on ultrasound--did not confirm not in pelvis. -PCN allergy- hives/vomiting, never had cephalosporins--for Clinda/gent for C/S prophylaxis -per [facility] note pap obtained, no results in recs--need records rLTCS sched 07/05/2022 for 0930/1130, pt aware, labs and ancef ordered [x] Initial BMI: 35.05 [x] Labs: completed @ [facility], please order VZV w/ 3rd tri labs [x] Genetic Screening: negative cf/sma carrier testing. nml NT, nml AFP, nml cfDNA boy [x] Baby ASA: yes, started @ [facility] [x] 1hr GCT at 24-28wks: 157, nml 3 hr gtt [x] Tdap (27-36wks): 05/10/2022 au [x] Flu Shot:05/10/2022 au [x] COVID vaccine: Declines, encouraged 05/10/22 [x] Rhogam (if Rh neg): n/a O+ [x] GBS at 36 wks: negative [x] : exclusively pump vs. formula [] control method: [x] 39 weeks discussion of IOL vs. Expectant management:Scheduled C/S [x] Mode of delivery: Repeat C/S [x] For C/S bottle of CHG 4% and hand out provided @ 36wks Baby boy Amirah lombardi+ [facility] Teaching: [x] 1st visit [x] 28-30 week [x] 36 week Encounters Date Type Department Care Team Description 05/13/2025 9:30 AM RECEIVER BULK SYSTEM Office Visit [facility] Obstetrics and Gynecology [address] [facility] [address] 7th Floor [address] [place] [address] Supervision of other normal , antepartum (Primary Dx); Mood disorder; Mild persistent asthma with acute exacerbation; History of delivery; Gastroesophageal reflux disease without esophagitis; Congenital duplication of uterus; Attention deficit hyperactivity disorder (ADHD), unspecified ADHD type; 36 weeks gestation of ; Transaminitis 05/13/2025 8:45 AM RECEIVER BULK SYSTEM Hospital Encounter [facility] - Ultrasound [address], 7th Floor, [address] [place] [address] Supervision of other normal , antepartum; Attention deficit hyperactivity disorder (ADHD), unspecified ADHD type 05/11/2025 10:30 AM RECEIVER BULK SYSTEM Office Visit [facility] Care at [address] [phone] Remedios Kaminski NP Non-recurrent acute suppurative otitis media of right ear without spontaneous rupture of tympanic membrane (Primary Dx) 05/08/2025 5:38 PM RECEIVER BULK SYSTEM - 05/08/2025 8:55 PM RECEIVER BULK SYSTEM Hospital Encounter [address] [phone] Laura Maynard MD Whelan, Victoria Conway, MD Squires, Megan Elise, MATTHEW Discharge Disposition: Discharge to home or self care 05/08/2025 Telephone [facility] Obstetrics and Gynecology [address] [place] [address] Floor [address] [place] [phone] Brant Elilott RN 05/07/2025 Results Follow-Up [facility]necology [address] [place] [address] Floor [address] [place] [phone] Yun Montoya MD Bile acids 05/04/2025 9:57 AM [employer]CE[employer] BULK SYSTEM - 05/05/2025 12:22 PM RECEIVER B[employer] SYSTEM Hospital Encounter [address] [phone] Yun Montoya MD Discharge Disposition: Discharge to home or self care 05/01/2025 11:20 AM RECEIVER BULK SYSTEM Lab [address] [address] Supervision of other normal , antepartum 05/01/2025 9:45 AM RECEIVER BULK SYSTEM Office Visit [facility] Obstetrics and Gynecology [address] [place] [address] Floor [address] [place] [phone] Supervision of other normal , antepartum (Primary Dx) 05/01/2025 9:11 AM RECEIVER BULK SYSTEM - 05/01/2025 11:59 PM RECEIVER BULK SYSTEM Hospital Encounter [facility] - Ultrasound [address] [place] [address], 7th Floor, [address] [place] [address] Polyhydramnios, antepartum complication, third trimester, fetus 1 Discharge Disposition: Discharge to home or self care 04/25/2025 7:18 PM RECEIVER BULK SYSTEM - 04/25/2025 10:35 PM RECEIVER BULK SYSTEM Hospital Encounter [address] [phone] Laura Maynard MD Discharge Disposition: Discharge to home or self care 04/25/2025 Nurse Triage [address] [phone] Nimco Fierro RN 04/23/2025 1:36 PM RECEIVER BULK SYSTEM - 04/23/2025 4:55 PM RECEIVER BULK SYSTEM Hospital Encounter [address] [phone] Letitia Nicholas MD Discharge Disposition: Discharge to home or self care 04/23/2025 Telephone [facility] Obstetrics and Gynecology [address] [place] [address] Floor [address] [place] [phone] Brant Elliott, CECILIA 04/17/2025 9:45 AM CDT Office Visit [facility] Obstetrics and Gynecology [address] [place] [address] [place] [phone] Supervision of other normal , antepartum (Primary Dx) 04/16/2025 8:13 AM CDT - 04/16/2025 11:59 PM CDT Hospital Encounter [facility] - Ultrasound [address] [place] [address], [address] [place] [address], [address] [place] [address] Polyhydramnios, antepartum complication, third trimester, fetus 1 (Primary Dx); Congenital duplication of uterus; Supervision of other normal , antepartum Discharge Disposition: Discharge to home or self care 04/15/2025 Telephone [facility] Obstetrics and Gynecology [address] [place] [address] Floor [address] [place] [phone] Roseanne Ortiz, CECILIA cough 04/03/2025 Telephone [facility] Obstetrics and Gynecology [address] [place] [address] [address] [place] [phone] Connie Pal, CECILIA 03/31/2025 4:20 PM CDT - 03/31/2025 5:30 PM CDT Hospital Encounter [address] [phone] Yun Montoya MD Discharge Disposition: Discharge to home or self care 03/31/2025 Telephone [facility] Gynecology [address] [place] [address] 7th Floor [address] [place] [phone] Brant Elliott RN OB Problem 03/20/2025 9:15 AM CDT Office Visit [facility]necology [address] [place] [address] Floor [address] [place] [phone] Supervision of other normal , antepartum (Primary Dx); Congenital duplication of uterus 03/20/2025 8:30 AM CDT - 03/20/2025 11:59 PM CDT Hospital Encounter [facility] - Ultrasound [address] [place] [address], [address] [place] [address], [address] [place] [address] Mild persistent asthma with acute exacerbation; Congenital duplication of uterus; Attention deficit hyperactivity disorder (ADHD), unspecified ADHD type Discharge Disposition: Discharge to home or self care 03/20/2025 Orders Only [facility]necology [address] [place] [address] Floor [address] [place] [address] Letitia Nicholas MD Pre-op testing (Primary Dx); Supervision of other normal , antepartum 02/20/2025 3:00 PM CDT Office Visit [facility]s [facility] Gynecology [address] [place] [address] Floor [address] [place] [phone] Supervision of other normal , antepartum (Primary Dx); Anemia affecting , antepartum; Attention deficit hyperactivity disorder (ADHD), unspecified ADHD type; 24 weeks gestation of from Last 3 Months Immunizations Immunization Administration Dates Next Due DTaP 10/18/2001, 8,1996,10/25,1996 HPV, Quadrivalent 07/23/2007,03/19/2007,01/16/20 07 Hep A, Pediatric 07/23/2007,01/15/2007 Hep B, Adolescent or Pediatric 1998,1996,1996 Hib (PRP-OMP) 09/29/1997, 7,1996,08/26 IPV 10/18/2001 Influenza LAIV (Nasal) 04/29/2013 Influenza, Live, Intranasal, Quadrivalent 05/22/2014 Influenza, Quadrivalent, Mary l Culture-based MDCK, Preservative Free, Antibiotic Free, Intramuscular 05/10/2022 Influenza, Quadrivalent, Spl it, Preservative Free, Intramuscular 05/05/2017 Influenza, Trivalent, Cell Culture-based MDCK, Preservative Free, Antibiotic Free, Intramuscular 03/20/2025 MMR 10/18/2001,06/30/1997 Meningococcal MCV4P (Menactra) 04/29/2013,2007 OPV 1996,1996,1996 Pneumococcal Conjugate 7-Valent 06/28/2000 RSV, Bivalent, Protein Subun it Rsvpref, Diluent (Abrysvo) 05/01/2025 Tdap 03/20/2025,,05/05/2017,01/15 Varicella 03/19/2007,01/05/1998 Surgical History Surgery Date Site/Laterality Comments TONSILLECTOMY SECTION 06/19/2022 - 06/18/2023 AND 2018 PER PT SECTION Medical History Medical History Date Comments Migraine GERD (gastroesophageal reflux disease) Menstrual problem Anxiety Esophageal varices Asthma Family History Medical History Relation Name Comments Hyperlipidemia Father Yeison Hypertension Father Yeison Cancer Father's Sister 1 Pat Diabetes Father's Sister 2 Darling Hyperlipidemia Father's Sister 2 Darling Heart attack Maternal Grandfather Sam Alcohol abuse Maternal Grandmother Sarah Alzheimer's disease Maternal Grandmother Sarah Cancer Maternal Grandmother Sarah Alcohol abuse Mother Ange Arthritis Mother Ange COPD Paternal Grandfather Sameer Cancer Paternal Grandfather Sameer Diabetes Paternal Grandfather Sameer Heart attack Paternal Grandfather Sameer Heart disease Paternal Grandfather Sameer Hyperlipidemia Paternal Grandfather Sameer Clotting disorder Paternal Grandmother Priya Hypertension Paternal Grandmother Priya Obesity Paternal Grandmother Priya Asthma Son 1 Tayden Rashes / Skin problems Son 1 Tayden Developmental delay Son 2 Supa Learning disabilities Son 2 Supa Relation Name Status Comments Father Yeison Alive Father's Sister 1 Pat Alive Father's Sister 2 Darling Alive Maternal Grandfather Sam Alive Maternal Grandmother Sarah Alive Mother Ange Alive Paternal Grandfather Sameer Alive Paternal Grandmother Priya Alive Son 1 Amirah Alive Son 2 Supa Alive Social History Tobacco Use Types Packs/Day [...] often do you attend chur ch or holiness services? Never 07/06/2022 Do you belong to any clubs o r organizations such as nondenominational groups, unions, fraternal or athletic groups, or [...] place to sleep or slept in a fci (including now)? No 07/06/2022 [place] Depression Scale Answer Date Recorded [place] Depression Scale Total 0 08/18/2022 The thought [...] on file Legal Sex Female 6:23 PM RECEIVER BULK SYSTEM Gender Identity Female 07/18/2024 2:44 PM RECEIVER BULK SYSTEM Sexual Orientation Straight 07/18/2024 2: 44 PM RECEIVER BULK SYSTEM Obstetrics History Para Term AB IAB SAB Ectopic Multiple Livin g Live Births 3 2 1 1 0 2 2 Date Outcome GA Total Labor Labor/2nd/3rd Weight Sex Type Anes PTL Nilson A1 A5 Name Clin 2018 M CS-Un spec Livin g 023 Term 39w 0d 0h 04m 0h 04m 3.77 kg (8 lb 5 oz) M C-Sec tion Combin ed Spinal /Epidu ral N Livin g 8 9 MINOR ER,LETICIA yuan, Sandeep vinson MD Complications:None Delivery Location:[facility] Main C ampus ([facility] L AND D PROCEDURE) Current Comments 2022- ES- rLTCS- baby boy Alena fuller Summary Episode Dates Number of Fetuses Estimated Date of Delivery 10/16/2024 - Present (05/13/2025) 1 06/09/2025 (set by Yun Montoya MD on 10/31/2024 based on Ultrasound on 10/31/2024) Dating Summary Based On ELIZABETH GA Diff Last Menstrual Period on 09/04/2024 (Approximate ) 06/11/2025 -2d Ultrasound on 10/31/2024 06/09/2025 Working GA:8w3d Overview and Plan :Miles sex:Male Support person:Koffi Kang Delivery Plans Post-Delivery Plans Planned delivery method: Feedin g intentions:Breast Milk and Formula Circumcision request ed:Provider Performed Overview Pt has two uteruses. Current (G3) is in right uterus Vitals Pregravid Weight Height TWG (As of 05/13/2025) Pregrav id BMI 74.8 kg (165 lb) 162.2 cm (5' 3.86) 26.8 kg (59 lb) 2 8.45 Date GA Fund Present FHR Mvmt BP Weight Edema Alb Glu Ket Dil/ Eff/Sta 025 8w3d 104/7 0 79.9 kg (176 lb 3.2 oz) 0/0/-5 025 12w3d Inpatient data not displayed here. See encounter summary. 025 20w3d Inpatient data not displayed here. See encounter summary. 025 28w3d Inpatient data not displayed here. See encounter summary. 025 30w0d Inpatient data not displayed here. See encounter summary. 025 32w2d Inpatient data not displayed here. See encounter summary. 025 33w2d Inpatient data not displayed here. See encounter summary. 025 33w4d Inpatient data not displayed here. See encounter summary. 025 34w3d Inpatient data not displayed here. See encounter summary. 025 35w0d Inpatient data not displayed here. See encounter summary. 025 35w3d Inpatient data not displayed here. See encounter summary. 36w1d Inpatient data not displayed here. See encounter summary. Notes Progress Notes - Office Visi t - 05/13/2025 - GA:36w1d 05/13/2025 - 36w1d - Matt Miller RN Met with Laura Cruz today for 36 week education. Discussed signs of labor and pp bc. 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 Also informed that social work will visit her in the hospital and baby will have a hearing and blood screening. Pt stated understanding. [facility] 05/13/2025 - 36w1d - Anna Mendoza MD EOB at 36w1d - Supervision of : tearful about being uncomfortable, large baby in R horn and feeling uncomfortable, desires delivery sooner - Reviewed growth US: EFW 3998g (>99%), AC >99%, FHT 132 bpm, transverse lie, VENUS 25.9 cm - Presented to [facility] on 05/08 for DFM with reassuring monitoring - Inpatient admission for tPTL from 05/04-05/05 - 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 - Mild polyhydramnios diagnosed 04/16: last VENUS 23.7 cm on 05/01 and 25.9 cm [...] option, counseling provided on options today - [facility] precautions reviewed [facility] Progress Notes - Hospital En counter - 05/08/2025 - GA:35w3d 05/09/2025 - 35w4d - Sirisha Pederson RN Pt presented to [facility] with DFM FHR cat 1 Vital signs WNL Remaining assessment WDL. SVE 1.5/50/-3 IV access established, labs sent 1L LR bolus Patient verbalized understanding of discharge instructions and sent home in stable condition. Jovanna Pederson RN [facility] Progress Notes - Hospital En counter - 05/05/2025 - GA:35w0d 05/05/2025 - 35w0d - Van Son , Shannon Hargrove MD Antepartum Progress Note Gestational Age: 35w0d Admission Date: 05/04/2025 Length of stay: 1 Admission Diagnosis: labor SUBJECTIVE -No new problems. -Had brief onset of contractions at 7pm, rapidly resolved after urinating. Otherwise reports active movement. No vaginal bleeding/leakage of fluid/contractions per RN. -Sleeping comfortably this AM Review of Systems Negative except as per above. OBJECTIVE Vitals: Temp Min: 36.6 C (97.8 F) Max: 36.8 C (98.2 F) Pulse Min: 81 Max: 104 BP Min: 111/78 Max: 133/62 Resp Min: 16 Max: 17 SpO2 Min: 96 % Max: 100 % Physical Exam General: No acute distress. Appears stated age and cooperative. Cardiovascular: Regular rate and rhythm. Lungs: Non-labored. Abdomen: Soft, non-tender, gravid. Extremities: Warm and well-perfused. No bilateral lower extremity edema or calf tenderness. Pelvic: Deferred. Neurologic: Alert and oriented x4, non-focal Lab Review: Recent Results (from the past 24 hours) POCT urinalysis (Clinitek) Collection Time: 05/04/25 10:26 AM Result Value Ref Range Color, ur, POC Yellow Yellow Clarity, UA, POC Clear Clear Glucose, ur, POC Negative Negative Bilirubin, ur, POC Negative Negative Ketones, ur, POC 1+ (A) Negative Specific gravity, ur, POC 1.020 1.010 - 1.025 Blood, ur, POC 3+ (A) Negative pH, ur, POC 7.0 Protein, ur, POC Negative Negative Urobilinogen, ur, POC 0.2 mg/dL mg/dL Nitrites, ur, POC Negative Negative Leukocyte esterase, ur, POC Trace (A) Negative CBC without differential Collection Time: 05/04/25 11:27 AM Result Value Ref Range WBC 18.18 (H) 3.80 - 9.90 K/cumm Hgb 12.1 11.9 - 15.5 g/dL Hct 36.2 35.6 - 45.5 % Plt 221 150 - 400 K/cumm MPV 12.6 (H) 9.1 - 12.3 fL RBC 3.83 (L) 3.90 - 5.20 M/cumm MCV 94.5 81.3 - 96.4 fL MCH 31.6 27.1 - 33.3 pg MCHC 33.4 32.3 - 35.7 g/dL RDW CV 14.8 11.1 - 14.9 % RDW SD 51.1 (H) 35.7 - 48.1 fL NRBC abs 0.00 0.00 - 0.01 K/cumm Comprehensive metabolic panel Collection Time: 05/04/25 11:27 AM Result Value Ref Range Sodium 136 135 - 145 mmol/L Potassium, pl 3.9 3.3 - 4.9 mmol/L Chloride 104 97 - 110 mmol/L CO2 22 22 - 32 mmol/L Anion gap 10 2 - 15 mmol/L BUN 2 (L) 6 - 25 mg/dL Creatinine 0.43 (L) 0.60 - 1.10 mg/dL Glucose 80 70 - 199 mg/dL Calcium 9.5 8.5 - 10.3 mg/dL Bilirubin, total 0.5 0.1 - 1.2 mg/dL Protein, pl 6.8 6.5 - 8.5 g/dL Albumin 3.7 3.5 - 5.0 g/dL Alk phos 276 (H) 40 - 130 Units/L ALT 79 (H) 7 - 45 Units/L AST 32 10 - 45 Units/L Type and screen Collection Time: 05/04/25 11:27 AM Result Value Ref Range ABO Rh O Positive Rogelio, indirect Negative N. gonorrhoeae/C. trachomatis Amplification Urine Collection Time: 05/04/25 11:27 AM Specimen: None; Urine Result Value Ref Range C. trachomatis Not Detected Not Detected N. gonorrhoeae Not Detected Not Detected Trichomonas vaginalis PCR Urine Collection Time: 05/04/25 11:27 AM Specimen: Urine Result Value Ref Range Trichomonas DNA Not Detected Not Detected eGFR Collection Time: 05/04/25 11:27 AM Result Value Ref Range eGFR >90 >=60 mL/min/1.73 m2 ASSESSMENT/PLAN Laura Cruz is a 29 y.o. female at 35w0d who is being admitted c/f PTL. #PTL #hx CS x 2 #uterine didelphys -pt to [facility] iso feeling ctx q2 mins after intercourse this AM with spotting/mucous plug loss per pt -cervical check closed > 1/50/-3 over 1 hour check -wet mount neg for rupture -after bolus, pt comfortable with ctx spaced out to rare -plan for repeat CS, baby breech confirmed on BSUS -admitted for observation -GC/CT/Trich negative Plan: -patient comfortable throughout the evening -consider discharge today if SVE unchanged this AM #asthma -recent visit to [facility] on 04/25 for abdominal pain and cough, started on Symbicort BID. -currently asymptomatic #proteinuria - Patient with UPC 0.32 iso LE swelling, UPC dirty catch - No MR pressures this - Consider repeat UPC, labs if experiences MR pressures > 4 hr apart #ADHD -per pt, is on Vyvance 50 daily. Ordered. #mood disorder -home prozac 60mg daily, latuda 20 daily ordered. #FWB: - fUS 04/16: EFW 84% - BMZ holding at this time - GBS pending - MONITORING PLAN: dNST #MWB - PNL: Rh + /Ab neg/HIV nr /Rub imm /RPR neg /HepB neg/GC/CT neg/neg - 1 hr GTT wnl - 3T HIV nr/RPR nr - Tdap 03/20 - GBS to be collected - MOD: rCS - MOF: both - MOC: to be further discussed Shannon Mcbride MD 05/05/25 Cosigned by Laura Maynard MD at 05/06/2025 11:22 AM [facility] Associated attestation - Laura Maynard MD - 05/06/2025 11:22 AM [facility] I have seen and examined the patient on 05/05/2025. I agree with the findings and plan of care as documented in the resident's/fellow's note.. Will plan for recheck of SVE and if unchanged ok for discharge, appointment in clinic next week 05/04/2025 - 34w6d - Kavita Valladares NP Obstetrics H&P Chief Complaint: PTL Estimated Date of Delivery: 06/09/25 Provider: [facility] HPI: Laura Cruz is a 29 y.o. female at 34w6d gestation, dated by L=1st presents with complaints of contractions that started this AM. She states she had intercourse this AM. She has some small bleeding and mucous like discharge. Endorses + FM Her is complicated by prior C/S x 2, PCN allergy, didelphys uteri, GERD, sleep apnea, ADHD, asthma, pt has absent left kidney, hx preE in G1, mild polyhydramnios OB History Para Term AB Living 3 2 1 1 0 2 SAB IAB Ectopic Multiple Live Births 0 0 0 0 2 # Outcome Date GA Lbr Rashaun/2nd Weight Sex Type Anes PTL Lv 3 Current 2 Term 07/05/22 39w0d 3.77 kg (8 lb 5 oz) M CSE N NILSON Name: AUGUST CRUZ Apgar1: 8 Apgar5: 9 1 2017 M CS-Unspec NILSON Obstetric Comments 2022- ES- rLTCS- baby jennifer Macario Past Medical History: Diagnosis Date Anxiety GERD (gastroesophageal reflux disease) Menstrual problem Migraine Chronic hypertension: No Diabetes: No Asthma: No Past Surgical History: Procedure Laterality Date SECTION 2022 AND 2018 PER PT TONSILLECTOMY Social History Tobacco Use Smoking status: Never Smokeless tobacco: Never Substance and Sexual Activity Drug use: Never Sexual activity: Yes Partners: Male control/protection: None Comment: Will decide at 6w visit Alcohol Use: Not At Risk (10/31/2024) AUDIT-C Frequency of Alcohol Consumption: Never Average Number of Drinks: Patient does not drink Frequency of Binge Drinking: Never Support System: Not addressed Safe at home: Yes family history includes Alcohol abuse in her maternal grandmother and mother; Alzheimer's disease in her maternal grandmother; Arthritis in her mother; Asthma in her son; COPD in her paternal grandfather; Cancer in her father's sister, maternal grandmother, and paternal grandfather; Clotting disorder in her paternal grandmother; Developmental delay in her son; Diabetes in her father's sister and paternal grandfather; Heart attack in her maternal grandfather and paternal grandfather; Heart disease in her paternal grandfather; Hyperlipidemia in her father, father's sister, and paternal grandfather; Hypertension in her father and paternal grandmother; Learning disabilities in her son; Obesity in her paternal grandmother; Rashes / Skin problems in her son. Family history of bleeding or clotting disorders: No Family history of defects, genetic disorders, or developmental delay: No Allergies Allergen Reactions Amoxicillin Hives and Vomiting Codeine Hives, Unknown, Vomiting, Rash and Other (See comments) Hydrocodone Hives, Vomiting and Other (See comments) Penicillins Hives, Unknown, Vomiting, Other (See comments) and Rash Levofloxacin Vomiting and Nausea & Vomiting HOME MEDICATIONS: albuterol HFA (PROVENTIL HFA,VENTOLIN HFA,PROAIR HFA) 90 mcg/actuation inhaler aspirin 81 mg chewable tablet benzonatate (TESSALON) 100 mg capsule budesonide-formoteroL (SYMBICORT) 80-4.5 mcg/actuation inhaler cetirizine (ZyrTEC) 10 mg tablet ferrous sulfate 325 mg (65 mg of elemental iron) tablet FLUoxetine (PROzac) 20 mg capsule fluticasone propionate (FLONASE) 50 mcg/actuation nasal spray guaiFENesin ER (MUCINEX) 600 mg 12 hr tablet inhalational spacing device ([facility]) spacer lisdexamfetamine (VYVANSE) 40 mg capsule lurasidone (LATUDA) 20 mg tablet omeprazole (PriLOSEC) 40 mg capsule prenat.vits,daysi,dms-emxv-imouq tablet Review of Sys: Negative except per HPI Vitals: Temp: [36.6 C (97.8 F)] 36.6 C (97.8 F) Pulse: [81] 81 Resp: [17] 17 BP: (111)/(78) 111/78 Physical Exam: General: NAD, mood appropriate Cardiovascular: Regular rate and rhythm Pulmonary: Clear to ausculation bilaterally Abdomen: Gravid, non-tender Extremities: Warm and well perfused Speculum Exam: small blood on exam, wetmount unremarkable Cervix:cl/long/-3 ----50/-3 Monitoring: Baseline: 145 bpm, Variability: Moderate, Accelerations: Present and Decelerations: None Uterine Activity: Contractions present, q2-3 minutes Interpretation: Reactive Ultrasound: BREECH Labs: Lab Results Component Value Date ABORH O Positive 05/04/2025 SCRIBEDABORH O+ 12/30/2021 IDCOOMB Negative 05/04/2025 SCRINDANTIGL negative 12/30/2021 [id number] Nonreactive 05/01/2025 [id number] NON-REACTIVE 07/04/2022 [id number] Negative 12/30/2021 LABRPR NON-REACTIVE 02/27/2025 SCRRPR Non-Reactive 12/30/2021 RUBELIGG Reactive 10/31/2024 SCRRUBELIGG Immune 12/30/2021 HEPBSAG Nonreactive 10/31/2024 VZVIGG Reactive 10/31/2024 Assessment and Plan Laura Cruz is a 29 y.o. female at 34w6d who presented with complaints of PTL RO PTL: VSS Abd palpated mod CTX CTX Speculum Exam: small blood on exam, wetmount unremarkable Cervix:cl/long/-3 ----/-3 Admit to [facility]U for observation Plan discussed with Dr. Lindsay Valladares NP 05/04/25 [facility] Progress Notes - Office Visi t - 05/01/2025 - GA:34w3d 05/01/2025 - 34w3d - Yun Montoya MD Return OB @ 34w3d - Reports worsening LE swelling, discussed elevation and compression socks - Recent visit to [facility] on 04/25 for abdominal pain and cough, started on Symbicort BID. Found to have new proteinuria with UPC 0.32, ALT 59 - Cough improved after starting Symbicort - Endorses occasional headaches, improve with APAP - Endorses irregular contractions, denies VB, LOF, endorses movement - Taking PO iron daily, has f/u with Heme on 05/14 - Reports has been irritable but mood otherwise ok on fluoxetine 60 mg, Vyvance 50 mg, Latuda - US today with normal VENUS Plan: - 3T labs, repeat CMP and UPC ordered, last UPC was not clean catch - PreE precautions given - Instructed to check home BPs 3d/week call with 140/90 - RSV vax today I saw and examined patient with Hector High MD Obstetrics & Gynecology, PGY-1 Yun Montoya MD [facility] Progress Notes - Hospital En counter - 04/25/2025 - GA:33w4d 04/26/2025 - 33w5d - Kavita Valladares NP Obstetrics H&P Chief Complaint: abd pain Estimated Date of Delivery: 06/09/25 Provider: [facility] HPI: Laura Cruz is a 29 y.o. female at 33w4d gestation, dated by L=1st reports having pain at her umbilicus. States that she has had some pain on the right side with coughing. She has had a cough for a few weeks. She states the pain is a 5 when sitting still and a 10 when coughing. She is concerned for a hernia. No known history of a hernia. Denies constipation and UTI symptoms. No other OB related complaints. Endorses + FM. Denies bleeding and LOF. Denies WOO, vision changes and or RUQ T/epigastric pain. Her is complicated by prior C/S x 2, PCN allergy, didelphys uteri, GERD, sleep apnea, ADHD, asthma, pt has absent left kidney, hx preE in G1, mild polyhydramnios OB History Para Term AB Living 3 2 1 1 0 2 SAB IAB Ectopic Multiple Live Births 0 0 0 0 2 # Outcome Date GA Lbr Rashaun/2nd Weight Sex Type Anes PTL Lv 3 Current 2 Term 07/05/22 39w0d 3770 g (8 lb 5 oz) M CSE N NILSON Name: AUGUST CRUZ Apgar1: 8 Apgar5: 9 1 2018 M CS-Unspec NILSON Obstetric Comments ES- rLTCS- baby jennifer Macario Past Medical History: Diagnosis Date Anxiety GERD (gastroesophageal reflux disease) Menstrual problem Migraine Chronic hypertension: No Diabetes: No Asthma: Yes Past Surgical History: Procedure Laterality Date SECTION 2022 AND 2017 PER PT TONSILLECTOMY Social History Tobacco Use Smoking status: Never Smokeless tobacco: Never Substance and Sexual Activity Drug use: Never Sexual activity: Yes Partners: Male control/protection: None Comment: Will decide at 6w visit Alcohol Use: Not At Risk (10/31/2024) AUDIT-C Frequency of Alcohol Consumption: Never Average Number of Drinks: Patient does not drink Frequency of Binge Drinking: Never Support System: Not addressed Safe at home: Yes family history includes Alcohol abuse in her maternal grandmother and mother; Alzheimer's disease in her maternal grandmother; Arthritis in her mother; Asthma in her son; COPD in her paternal grandfather; Cancer in her father's sister, maternal grandmother, and paternal grandfather; Clotting disorder in her paternal grandmother; Developmental delay in her son; Diabetes in her father's sister and paternal grandfather; Heart attack in her maternal grandfather and paternal grandfather; Heart disease in her paternal grandfather; Hyperlipidemia in her father, father's sister, and paternal grandfather; Hypertension in her father and paternal grandmother; Learning disabilities in her son; Obesity in her paternal grandmother; Rashes / Skin problems in her son. Family history of bleeding or clotting disorders: No Family history of defects, genetic disorders, or developmental delay: No Allergies Allergen Reactions Amoxicillin Hives and Vomiting Codeine Hives, Unknown, Vomiting, Rash and Other (See comments) Hydrocodone Hives, Vomiting and Other (See comments) Penicillins Hives, Unknown, Vomiting, Other (See comments) and Rash Levofloxacin Vomiting and Nausea & Vomiting HOME MEDICATIONS: albuterol HFA (PROVENTIL HFA,VENTOLIN HFA,PROAIR HFA) 90 mcg/actuation inhaler aspirin 81 mg chewable tablet benzonatate (TESSALON) 100 mg capsule budesonide-formoteroL (SYMBICORT) 80-4.5 mcg/actuation inhaler cetirizine (ZyrTEC) 10 mg tablet ferrous sulfate 325 mg (65 mg of elemental iron) tablet FLUoxetine (PROzac) 20 mg capsule fluticasone propionate (FLONASE) 50 mcg/actuation nasal spray guaiFENesin ER (MUCINEX) 600 mg 12 hr tablet inhalational spacing device ([facility]) spacer lisdexamfetamine (VYVANSE) 40 mg capsule lurasidone (LATUDA) 20 mg tablet omeprazole (PriLOSEC) 40 mg capsule prenat.vits,daysi,lus-nclr-hzyzp tablet Review of Sys: Negative except per HPI Vitals: Temp: [36.7 C (98 F)] 36.7 C (98 F) Pulse: [86-111] 88 Resp: [18] 18 BP: (107-127)/(54-77) 107/59 Physical Exam: General: NAD, mood appropriate Cardiovascular: Regular rate and rhythm Pulmonary: Clear to ausculation bilaterally Abdomen: Gravid, non-tender Extremities: Warm and well perfused Speculum Exam: deferred Cervix: declined Monitoring: Baseline: 130 bpm, Variability: Moderate, Accelerations: Present and Decelerations: None Uterine Activity: No contractions seen on toco Interpretation: Reactive Ultrasound: Not indicated today Labs: Lab Results Component Value Date ABORH O Positive 10/31/2024 SCRIBEDABORH O+ 12/30/2021 IDCOOMB Negative 10/31/2024 SCRINDANTIGL negative 12/30/2021 [id number] Nonreactive 10/31/2024 [id number] NON-REACTIVE 07/04/2022 [id number] Negative 12/30/2021 LABRPR NON-REACTIVE 02/27/2025 SCRRPR Non-Reactive 12/30/2021 RUBELIGG Reactive 10/31/2024 SCRRUBELIGG Immune 12/30/2021 HEPBSAG Nonreactive 10/31/2024 VZVIGG Reactive 10/31/2024 Assessment and Plan Laura Cruz is a 29 y.o. female at 33w4d who presented with complaints of abd pain #Abd Pain -VSS (serial Bps, normotensive) -Abdomen benign, non tender -Negative RUQ T and negative epigastric pain/tenderness -Denies N/V -CBC Hgb 11.5, Hct 34.4, Plt 242 -CMP ALT 59, AST 36, Creatinine 0.37 -UPC 0.3 (new dx proteinuria, Bps all normotensive) -Amylase 32 -Lipase 18 -SSE: deferred (denies bleeding and LOF, no vaginal discharge or vaginal itching) -no urinary symptoms or constipation -no contractions, patient comfortable -Patient encouraged to wear abdominal binder to provide support. -No e/o acute abdomen and or PTL -No e/o hernia and or diastasis recti -Discussed normal physiologic discomforts of . Encouraged tylenol, heat, PG support belt. Given return precautions #FWB -Reactive NST -Endorses +FM -Discussed importance of good movement and kick counts Patient to continue taking medications as prescribed, follow up with [facility] on 05/01/25 Strict return precautions given. Patient had no further questions, verbalized understanding of discharge plan/instructions and was DCd home in Stable condition. Plan discussed with Dr. Maynrad. Okay to d/c home. Plan to repeat CMP next week due to slightly elevated ALT: 59. New onset proteinuria this visit. Bps all normotensive and asymptomatic. Reviewed s/s preE and given return precautions Blaine Walls NP Care assumed by Tamara Gomes NP @ 2000PM 04/25/25 [facility] Progress Notes - Hospital En counter - 04/23/2025 - GA:33w2d 04/23/2025 - 33w2d - Linda Phillips NP Obstetrics H&P Chief Complaint: cough Estimated Date of Delivery: 06/09/25 Provider: [facility] HPI: Laura Cruz is a 29 y.o. female at 33w2d gestation, dated by L=1T U/S Her is complicated by prior C/S x 2, didelphys uteri, GERD, sleep apnea, ADHD, asthma Pt reports having a persistent cough for the past 3-4 wks. Reports that the cough started as a dry cough, but over the past week has become productive, coughing up yellow sputum. Reports coughing so hard that she starts vomiting and feels as though she pulled an ABD muscle. Pt reports being seen by pulmonology apporx 1 yr before and newly diagnosed with [place] asthma. Reports prior to this episode she rarely needed her inhaler, but has been using it nightly for the past week. Denies fever, but has had chills and occ felt warm. Also reports having persistent WOO since coughing so much. Denies ctx, LOF, VB. Reports feeling normal FM. 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 History of Abnormal Pap: None STD History: none Past Medical History: Diagnosis Date Anxiety GERD (gastroesophageal reflux disease) Menstrual problem Migraine Chronic hypertension: No Diabetes: No Asthma: Yes Past Surgical History: Procedure Laterality Date SECTION 2022 AND 2018 PER PT TONSILLECTOMY Social History Tobacco Use Smoking status: Never Smokeless tobacco: Never Substance and Sexual Activity Drug use: Never Sexual activity: Yes Partners: Male control/protection: None Comment: Will decide at 6w visit Alcohol Use: Not At Risk (10/31/2024) AUDIT-C Frequency of Alcohol Consumption: Never Average Number of Drinks: Patient does not drink Frequency of Binge Drinking: Never Support System: Not addressed Safe at home: Yes family history includes Alcohol abuse in her maternal grandmother and mother; Alzheimer's disease in her maternal grandmother; Arthritis in her mother; Asthma in her son; COPD in her paternal grandfather; Cancer in her father's sister, maternal grandmother, and paternal grandfather; Clotting disorder in her paternal grandmother; Developmental delay in her son; Diabetes in her father's sister and paternal grandfather; Heart attack in her maternal grandfather and paternal grandfather; Heart disease in her paternal grandfather; Hyperlipidemia in her father, father's sister, and paternal grandfather; Hypertension in her father and paternal grandmother; Learning disabilities in her son; Obesity in her paternal grandmother; Rashes / Skin problems in her son. Family history of bleeding or clotting disorders: No Family history of defects, genetic disorders, or developmental delay: No Allergies Allergen Reactions Amoxicillin Hives and Vomiting Codeine Hives, Unknown, Vomiting, Rash and Other (See comments) Hydrocodone Hives, Vomiting and Other (See comments) Penicillins Hives, Unknown, Vomiting, Other (See comments) and Rash Levofloxacin Vomiting and Nausea & Vomiting HOME MEDICATIONS: albuterol HFA (PROVENTIL HFA,VENTOLIN HFA,PROAIR HFA) 90 mcg/actuation inhaler albuterol-budesonide (Airsupra) 90-80 mcg/actuation HFA aerosol inhaler aspirin 81 mg chewable tablet cetirizine (ZyrTEC) 10 mg tablet ferrous sulfate 325 mg (65 mg of elemental iron) tablet FLUoxetine (PROzac) 20 mg capsule fluticasone propionate (FLONASE) 50 mcg/actuation nasal spray inhalational spacing device ([facility]) spacer lisdexamfetamine (VYVANSE) 40 mg capsule lurasidone (LATUDA) 20 mg tablet omeprazole (PriLOSEC) 40 mg capsule prenat.vits,daysi,aod-acyz-qbxkh tablet Review of Sys: Negative except per HPI Vitals: Temp: [37.1 C (98.8 F)] 37.1 C (98.8 F) Pulse: [117-118] 117 Resp: [16-17] 17 BP: (122)/(82) 122/82 Labs Review: Recent Results (from the past 24 hours) POCT urinalysis (Clinitek) Collection Time: 04/23/25 2:27 PM Result Value Ref Range Color, ur, POC Yellow Yellow Clarity, UA, POC Clear Clear Glucose, ur, POC 2+ (A) Negative Bilirubin, ur, POC Negative Negative Ketones, ur, POC Negative Negative Specific gravity, ur, POC 1.010 1.010 - 1.025 Blood, ur, POC Negative Negative pH, ur, POC 6.0 Protein, ur, POC Negative Negative Urobilinogen, ur, POC 0.2 mg/dL mg/dL Nitrites, ur, POC Negative Negative Leukocyte esterase, ur, POC Negative Negative Comprehensive metabolic panel Collection Time: 04/23/25 2:57 PM Result Value Ref Range Sodium 139 135 - 145 mmol/L Potassium, pl 3.9 3.3 - 4.9 mmol/L Chloride 108 97 - 110 mmol/L CO2 22 22 - 32 mmol/L Anion gap 9 2 - 15 mmol/L BUN 3 (L) 6 - 25 mg/dL Creatinine 0.51 (L) 0.60 - 1.10 mg/dL Glucose 93 70 - 199 mg/dL Calcium 9.2 8.5 - 10.3 mg/dL Bilirubin, total 0.4 0.1 - 1.2 mg/dL Protein, pl 7.0 6.5 - 8.5 g/dL Albumin 3.5 3.5 - 5.0 g/dL Alk phos 242 (H) 40 - 130 Units/L ALT 31 7 - 45 Units/L AST 26 10 - 45 Units/L eGFR Collection Time: 04/23/25 2:57 PM Result Value Ref Range eGFR >90 >=60 mL/min/1.73 m2 CBC with auto differential Collection Time: 04/23/25 3:26 PM Result Value Ref Range WBC 13.55 (H) 3.80 - 9.90 K/cumm Hgb 12.1 11.9 - 15.5 g/dL Hct 35.1 (L) 35.6 - 45.5 % Plt 254 150 - 400 K/cumm MPV 12.2 9.1 - 12.3 fL RBC 3.72 (L) 3.90 - 5.20 M/cumm MCV 94.4 81.3 - 96.4 fL MCH 32.5 27.1 - 33.3 pg MCHC 34.5 32.3 - 35.7 g/dL RDW CV 15.0 (H) 11.1 - 14.9 % RDW SD 52.2 (H) 35.7 - 48.1 fL NRBC abs 0.00 0.00 - 0.01 K/cumm Differential, auto Collection Time: 04/23/25 3:26 PM Result Value Ref Range Neutrophil abs 10.56 (H) 1.50 - 6.50 K/cumm Imm gran abs 0.08 0.00 - 0.10 K/cumm Lymphocyte abs 1.80 0.80 - 3.30 K/cumm Monocyte abs 0.94 (H) 0.20 - 0.80 K/cumm Eosinophil abs 0.13 0.00 - 0.50 K/cumm Basophil abs 0.04 0.00 - 0.10 K/cumm Neutrophil pct 77.9 % Imm gran pct 0.6 % Lymphocyte pct 13.3 % Monocyte pct 6.9 % Eosinophil pct 1.0 % Basophil pct 0.3 % Physical Exam: General: NAD, mood appropriate Cardiovascular: Regular rate and rhythm Pulmonary: Limited air movement bilateral bases w/ expiratory wheezing noted in upper lobes Abdomen: Gravid, non-tender Extremities: Warm and well perfused Speculum Exam: deferred Cervix: deferred Monitoring: Baseline: 150 bpm,baseline change to 130bpm at 1524, Variability: Moderate, Accelerations: Present and Decelerations: None Uterine Activity: Irregular contractions Interpretation: Reactive Labs: Lab Results Component Value Date ABORH O Positive 10/31/2024 SCRIBEDABORH O+ 12/30/2021 IDCOOMB Negative 10/31/2024 SCRINDANTIGL negative 12/30/2021 [id number] Nonreactive 10/31/2024 [id number] NON-REACTIVE 07/04/2022 [id number] Negative 12/30/2021 LABRPR NON-REACTIVE 02/27/2025 SCRRPR Non-Reactive 12/30/2021 RUBELIGG Reactive 10/31/2024 SCRRUBELIGG Immune 12/30/2021 HEPBSAG Nonreactive 10/31/2024 VZVIGG Reactive 10/31/2024 Assessment and Plan Laura Cruz is a 29 y.o. female at 33w2d who presented with cough FWB: Reactive NST, +FM MWB: Cough Labs: CBC/CMP - unremarkable RVP - pending at the time of discharge CXR: IMPRESSION: Comparison is made to prior study 07/22/2024. In interval, no change. The lungs are clear. Specifically, no pulmonary edema or pneumonia. No pleural effusion or pneumothorax. Heart size and mediastinal contour are normal. Peak flow and albuterol nebulizer per respiratory - peak flows 200 pre tx and 275 post tx Meds: tylenol, caffeine - WOO, mucinex, tessalon - Rx sent to pharmacy Rx for symbicort sent to pharmacy - discussed the importance of starting a maintenance inhaler Plan discussed with Dr. Nicholas. Linda Phillips NP 04/23/25 [facility] Progress Notes - Office Visi t - 04/17/2025 - GA:32w3d 04/17/2025 - 32w3d - Estrella Phelps NP DAVONTE - Denies lof,bleeding and or ctx's - Reports +FM - US yesterday, mild polyhydramnios. Has follow up US in 2 weeks. - Has had a cough for 2-3 weeks and thinks she pulled a muscle from coughing. Has sharp pain in abdomen when coughing and now is sore with movements. Taking claritin daily and using inhaler when needed. RTC in 2 weeks Estrella Jung APRN, WHNP-BC Progress Notes - Hospital En counter - 03/31/2025 - GA:30w0d 03/31/2025 - 30w0d - Kavita Valladares NP Obstetrics H&P Chief Complaint: DFM Estimated Date of Delivery: 06/09/25 Provider: [facility] HPI: Laura Cruz is a 29 y.o. female at 30w0d gestation, dated by L=1st presents with DFM. Denies bleeding and LOF. Her is complicated by didelphys 2 uteri and 2 cervices, in right side.Probable short Vaginal septum -previous did serial growth US -h/o pre-e in G1 -h/o pLTCS in G1 @ 37.0 for pre-e, breech, and low lying placenta, op note in media, confirmed LTCS -Pt has absent left kidney -Anxiety and ADHD- stopped fluoxetine and lamotrigine about 6 weeks. Also stopped Vyvance for ADHD > restarted at 12 wks due to worsening mood - Plan fr serial growth US -PCOS: stopped metformin, for A1c and early diabetes screening -PCN allergy- hives/vomiting, never had cephalosporins--for Clinda/gent for C/S prophylaxis -mild anemia, feso4 OB History Para Term AB Living 3 2 1 1 0 2 SAB IAB Ectopic Multiple Live Births 0 0 0 0 2 # Outcome Date GA Lbr Rashaun/2nd Weight Sex Type Anes PTL Lv 3 Current 2 Term 07/05/22 39w0d 3.77 kg (8 lb 5 oz) M CSE N NILSON Name: AUGUST CRUZ Apgar1: 8 Apgar5: 9 1 2018 M CS-Unspec NILSON Obstetric Comments 2022- ES- rLTCS- baby jennifer Macario Past Medical History: Diagnosis Date Anxiety GERD (gastroesophageal reflux disease) Menstrual problem Migraine Chronic hypertension: No Diabetes: No Asthma: No Past Surgical History: Procedure Laterality Date SECTION 2022 AND 2018 PER PT TONSILLECTOMY Social History Tobacco Use Smoking status: Never Smokeless tobacco: Never Substance and Sexual Activity Drug use: Never Sexual activity: Yes Partners: Male control/protection: None Comment: Will decide at 6w visit Alcohol Use: Not At Risk (10/31/2024) AUDIT-C Frequency of Alcohol Consumption: Never Average Number of Drinks: Patient does not drink Frequency of Binge Drinking: Never Support System: Not addressed Safe at home: Yes family history includes Alcohol abuse in her maternal grandmother and mother; Alzheimer's disease in her maternal grandmother; Arthritis in her mother; Asthma in her son; COPD in her paternal grandfather; Cancer in her father's sister, maternal grandmother, and paternal grandfather; Clotting disorder in her paternal grandmother; Developmental delay in her son; Diabetes in her father's sister and paternal grandfather; Heart attack in her maternal grandfather and paternal grandfather; Heart disease in her paternal grandfather; Hyperlipidemia in her father, father's sister, and paternal grandfather; Hypertension in her father and paternal grandmother; Learning disabilities in her son; Obesity in her paternal grandmother; Rashes / Skin problems in her son. Family history of bleeding or clotting disorders: No Family history of defects, genetic disorders, or developmental delay: No Allergies Allergen Reactions Amoxicillin Hives and Vomiting Codeine Hives, Unknown, Vomiting, Rash and Other (See comments) Hydrocodone Hives, Vomiting and Other (See comments) Penicillins Hives, Unknown, Vomiting, Other (See comments) and Rash Levofloxacin Vomiting and Nausea & Vomiting HOME MEDICATIONS: albuterol HFA (PROVENTIL HFA,VENTOLIN HFA,PROAIR HFA) 90 mcg/actuation inhaler albuterol-budesonide (Airsupra) 90-80 mcg/actuation HFA aerosol inhaler aspirin 81 mg chewable tablet cetirizine (ZyrTEC) 10 mg tablet ferrous sulfate 325 mg (65 mg of elemental iron) tablet FLUoxetine (PROzac) 20 mg capsule fluticasone propionate (FLONASE) 50 mcg/actuation nasal spray inhalational spacing device ([facility]) spacer lisdexamfetamine (VYVANSE) 40 mg capsule lurasidone (LATUDA) 20 mg tablet omeprazole (PriLOSEC) 40 mg capsule prenat.vits,daysi,ncs-yptp-yxqsm tablet Review of Sys: Negative except per HPI Vitals: Temp: [36.5 C (97.7 F)] 36.5 C (97.7 F) Pulse: [112] 112 Resp: [18] 18 BP: (117)/(75) 117/75 Physical Exam: General: NAD, mood appropriate Cardiovascular: Regular rate and rhythm Pulmonary: Clear to ausculation bilaterally Abdomen: Gravid, non-tender Extremities: Warm and well perfused Speculum Exam: deferred Cervix: / / deferred Monitoring: Baseline: 135 bpm, Variability: Moderate, Accelerations: Present and Decelerations: None Uterine Activity: No contractions seen on toco Interpretation: Reactive Labs: Lab Results Component Value Date ABORH O Positive 10/31/2024 SCRIBEDABORH O+ 12/30/2021 IDCOOMB Negative 10/31/2024 SCRINDANTIGL negative 12/30/2021 [id number] Nonreactive 10/31/2024 [id number] NON-REACTIVE 07/04/2022 [id number] Negative 12/30/2021 LABRPR NON-REACTIVE 02/27/2025 SCRRPR Non-Reactive 12/30/2021 RUBELIGG Reactive 10/31/2024 SCRRUBELIGG Immune 12/30/2021 HEPBSAG Nonreactive 10/31/2024 VZVIGG Reactive 10/31/2024 Assessment and Plan Laura Cruz is a 29 y.o. female at 30w0d who presented with DFM Decreased movement: reactive NST. Movement felt in triage. Patient reassured. Education on expected movement and [facility] reviewed Patient to continue taking medications as prescribed, follow up with [facility] Strict return precautions given. Patient had no further questions, verbalized understanding of discharge plan/instructions and was DCd home in Stable condition. Plan discussed with Dr. Lindsay Valladares NP 03/31/25 Progress Notes - Office Visi t - 03/20/2025 - GA:28w3d 03/20/2025 - w3d - Marisa Dasilva NP DAVONTE - Denies lof,bleeding and or ctx's - Reports +FM - growth US today efw 1465g (86%), fhr 155, breech, left lateral placenta, venus nml - met with Tiara Jorgensen RN for 2T teaching - Tdap and flu today - will schedule 39 wk rLTCS - to discuss @ 2 wk POP working from home @ 4 weeks, she does not get a paid maternity leave - plans to discuss increasing meds with psychiatrist next week, reviewed. RTC in 4 weeks with Meg Dasilva APRN, PIERRE-BC 03/20/2025 - w3d - Matt Miller RN Met with Laura Fernandez Felipe today for 28-30 week education. Patient plans to breastfeed and discussed the benefits of . Patient given booklet reviewing the risks of formula feeding and when to appropriately introduce a pacifier. Given booklet reviewing hand expression, hunger cues, positioning, latch, and when the AAP recommends introducing solids. Aware that personnel consultant will meet with patient in the hospital. Discussed colostrum, how to order a breast pump, referred to the breast feeding guide and booklet provided. Discussed the baby friendly initiatives i.e. skin to skin, rooming in and delayed bath. Also discussed birthing classes and how to enroll, reviewed online resources and virtual tour currently being offered by [facility]. A firmware manager list was offered and accepted by the patient. Progress Notes - Office Visi t - 02/20/2025 - GA:24w3d 02/20/2025 - 24w3d - Ross Daniel MD EOB--24w3d - Doing well today. Presents with partner and son.Concerns addressed as below. - Anxiety/ADHD: Mood stable without SI/HI, on Vyvanse. Plan for serial growth at 28 weeks, scheduled. - Anemia: Ferritin with 2T labs - 2T labs and 1h GTT ordered - Vaccines: Tdap at 28 weeks. Reviewed updated covid and flu vaccines when available. Discussed RSV at 32-36 weeks. - 28 week teaching due at next visit. 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 - Hx of CS x2 - PreE in G1: BP 117/80 today, on ASA and recommended home BP monitoring - Anxiety: works with psychiatrist, resumed Vyvanse and fluoxetine in given worsening mood, dose of fluoxetine increased at last visit and added in atartax, psychiatrist added in latuda for mood disorder, overall doing well with these medications and better than previously, plan for serial growth - Mild anemia: Hb 10.5, taking PO iron, will plan to order ferritin with second trimester labs, Rx sent for refill - Asthma: works with pulmonology, has albuterol PRN (has not needed it this thus far) - GERD: on omeprazole - WA precautions reviewed Progress Notes - Office Visi t - 12/26/2024 - GA:16w3d 12/26/2024 - 16w3d - Jocelyn Huddleston Rai, NP DAVONTE - Denies lof, vaginal bleeding, and ctx's - Reports occasional +FM - Moods: improving. Questions increased dose of fluoxetine as her anxiety is still bad. Will increase to next dose. If PRN is needed, can add in Atarax - Reports bad heartburn. Has Rx for omeprazole that is waiting on a PA. Reports [facility] faxed us a request yesterday (12/25) - Overall, doing well! RTC in 4 weeks PIERRE Meyer Department of Obstetrics and Gynecology [facility] Progress Notes - Procedure v isit - 11/28/2024 - GA:12w3d 11/28/2024 - w3d - Connie Pal, RN Cell free DNA obtained x1 stick with no complications. Pt DOES desire to know sex, informed pt it would be on ONE Change/InvestLab results when released, pt verbalized understanding. 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 - Typically ADHD medications are used for the lowest dose and shortest amount of time possible in . - Data is overall reassuring in , however methylphenidate might slightly increase the risk of cardiac malformations and miscarriage. Amphetamines have been associated with PTB and LBW, hypertensive disorders in , preeclampsia, abruption, , intrauterine demise, , and infant - SSRIs in also reviewed, some data to suggest that exposure to SNRIs have an association with miscarriage and preeclampsia. If an individual is stable on an SNRI or has had benefit in the past, the benefits outweigh the risks of using this medication - After counseling, plan made to order both medications for mood - Plan for serial growth - Mild anemia: Hb 10.5, taking PO iron, will plan to order ferritin with second trimester labs - Asthma: works with pulmonology, Rx sent for daily inhaler, has albuterol PRN Progress Notes - Office Visi t - 10/31/2024 - GA:8w3d 10/31/2024 - 8w3d - Matt Jorgensen RN Met with Laura Cruz today for initial/first trimester visit teaching. Discussed the practice reviewed that group is comprised of 1 male physician, 6 female physicians, and 3 female nurse practitioners. Reviewed safe medications, appropriate diet, exercise/activity, travel, animals and vaccinations. Pt had specific questions that were answered appropriately. Desires cfDNA 10/31/2024 - 8w3d - Yun Montoya MD New OB LTCS at 37 weeks with Hx preE and subsequent repeat at 39 weeks Some nausea and vomiting, reviewed options Problem list reviewed--hx anxiety Pap- Cotest negative 09/09 Hx preE first - For ASA at 12 weeks Medications reviewed Off of lamotrigine, fluoxetine, vyvance and metformin when she found out she was 2 weeks ago. She feels like she is gaining weight quickly and gained 100lbs last . -She has a psychiatrist. Reviewed SSRI and limited risks of withdrawal and rare pulmonary hypertension. She thinks the lamotrigine was helping stabilize moods. She feels distracted at work without her Vyvanse. Reviewed could consider restarting all of them given generally safe. She is going to think about it. Would consider waiting until 2nd trimester to restart lamotrigine but large studies show no concerns. -Reviewed Metformin and is able to continue during if she thinks she is getting benefit. She will consider that also. Check A1C give hx prediabetes. Baseline PreE labs Didelphys with septum- in right uterine horn. Has carried a in each horn and delivered at term. Prior C/S x 2. Dating by ultrasound with unsure LMP--similar, but will date by ultrasound. Would like [facility], had carrier testing in the past. Last Filed Vital Signs Vital Sign Reading Time Taken Comments Blood Pressure 122/86 05/13/2025 9:35 AM [facility] Pulse 102 05/11/2025 10:29 AM [facility] Temperature 36.6 C (97.8 F) 05/11/2025 10:29 AM [facility] Respiratory Rate 18 05/11/2025 10:29 AM [facility] Oxygen Saturation 98% 05/11/2025 10:29 AM [facility] Inhaled Oxygen Concentration - - Weight 101.6 kg (224 lb) 05/13/2025 9:35 AM [facility] Height 162.2 cm (5' 3.86) 05/13/2025 9:35 AM CS T Body Mass Index 38.62 05/13/2025 9:35 AM [facility] Plan of Treatment Upcoming Encounters Date Type Department Care Team (Late st Contact Info) Description 06/02/2025 8:30 AM [facility] Hospital Encounter [address] [phone] [place] [address] [place] [id number] 06/02/2025 8:30 AM [facility] - 06/02/2025 10:56 AM [facility] Surgery [address] [phone] Letitia Nicholas MD [address] [place] [id number] SECTION Scheduled Procedures Name Priority Associated Diagnoses Date/Ti me SECTION History of delivery 06/02/2025 8:30 AM [facility] Health Maintenance Due Date Last Done Comments Pneumococcal vaccine <65 (2 of 2 - PPSV23, PCV20, or PCV21) 2002 06/28/2000 Depression Screening 08/19/2023 08/18/2022 Cervical Cancer Screening 08/24/20242023, 08/25/2023, 08/25/2023 Regular Well Visit/Exam 18-64 08/24/2024 08/25/2023 DTaP/Tdap/Td Vaccine (10 - T d or Tdap) 03/20/2035 03/20/2025, 05/10/2022, 05/05/2017, Additional history exists Hepatitis B Screening Completed 1998 , 03/28/1997, 1996 Varicella Vaccines Completed 03/19/2007, 01/05/1998 HPV Vaccines Completed 07/23/2007, 06/2006, 01/15/2007 Hepatitis C Screening Completed 10/31/2024, 022 Influenza Vaccine Completed 03/20/2025, , 05/05/2017, Additional history exists Procedures Procedure Name Priority Date/Time Associated Diagnosis Comments US OB FOLLOW UP Schedule Routine, Read Routine (OP Routine) 05/13/2025 8:49 AM [facility] Supervision of other normal , antepartum Attention deficit hyperactivity disorder (ADHD), unspecified ADHD type POCT URINALYSIS (CLINITEK) Routine 05/08/2025 6:36 PM [facility] BILE ACIDS, TOTAL STAT 05/05/2025 9:2 2 AM [facility] EGFR STAT 05/04/2025 11:27 AM [facility] TYPE AND SCREEN STAT 05/04/2025 11:27 AM [facility] COMPREHENSIVE METABOLIC PANEL STAT 05/04/2025 11:27 AM [facility] CBC WITHOUT DIFFERENTIAL STAT 05/04/2025 11:27 AM [facility] TRICHOMONAS VAGINALIS PCR Routine 05/04/2025 11:27 AM [facility] N. GONORRHOEAE/C. TRACHOMATIS AMPLIFICATION STAT 05/04/2025 11:27 AM [facility] POCT URINALYSIS (CLINITEK) Routine 05/04/2025 10:26 AM [facility] EGFR Routine 05/01/2025 11:33 AM [facility] Supervision of other normal , antepartum CBC WITHOUT DIFFERENTIAL Routine 05/01/2025 11:33 AM [facility] Supervision of other normal , antepartum COMPREHENSIVE METABOLIC PANEL Routine 05/01/2025 11:33 AM [facility] Supervision of other normal , antepartum URIC ACID Routine 05/01/2025 11:33 AM [facility] Supervision of other normal , antepartum HIV 1/2 ANTIBODY PLUS P24 ANTIGEN Routine 05/01/2025 11:33 AM [facility] Supervision of other normal , antepartum US OB LIMITED Schedule Routine, Read Routine (OP Routine) 05/01/2025 9:11 AM [facility] Polyhydramnios, antepartum complication, third trimester, fetus 1 PROTEIN / CREATININE RATIO, URINE, RANDOM STAT 04/25/2025 9:24 PM [facility] EGFR STAT 04/25/2025 7:59 PM [facility] COMPREHENSIVE METABOLIC PANEL STAT 04/25/2025 7:59 PM [facility] CBC WITHOUT DIFFERENTIAL STAT 04/25/2025 7:59 PM [facility] AMYLASE STAT 04/25/2025 7:59 PM [facility] LIPASE STAT 04/25/2025 7:59 PM [facility] POCT URINALYSIS (CLINITEK) Routine 04/25/2025 7:38 PM [facility] DIFFERENTIAL AUTO STAT 04/23/2025 3:2 6 PM [facility] CBC WITH AUTO DIFFERENTIAL STAT 04/23/2025 3:26 PM [facility] RESPIRATORY PATHOGEN PANEL Routine 04/23/2025 3:26 PM [facility] XR CHEST 1 VIEW ED Urgent/IP Urgent 04/23/2025 3:07 PM [facility] EGFR STAT 04/23/2025 2:57 PM [facility] COMPREHENSIVE METABOLIC PANEL STAT 04/23/2025 2:57 PM [facility] PEAK FLOW TEST Routine 04/23/2025 2:30 PM [facility] POCT URINALYSIS (CLINITEK) Routine 04/23/2025 2:27 PM [facility] US OB FOLLOW UP Schedule Routine, Read Routine (OP Routine) 04/16/2025 8:13 AM CDT Congenital duplication of uterus Supervision of other normal , antepartum POCT URINALYSIS (CLINITEK) Routine 03/31/2025 4:41 PM CDT OB FOLLOW UP Schedule Routine, Read Routine (OP Routine) 03/20/2025 8:50 AM CDT Mild persistent asthma with acute exacerbation Congenital duplication of uterus Attention deficit hyperactivity disorder (ADHD), unspecified ADHD type FERRITIN Routine 02/27/2025 12:12 PM CDT GTT 50GM 1HR GESTATIONAL SCREEN Routine 02/27/2025 12:12 PM CDT Supervision of other normal , antepartum CBC WITHOUT DIFFERENTIAL Routine 02/27/2025 12:12 PM CDT Supervision of other normal , antepartum Anemia affecting , antepartum RPR Routine 02/27/2025 12:12 PM CDT Supervision of other normal , antepartum HEPATITIS C ANTIBODY Routine 10/31/2024 9:40 AM CDT Supervision of other normal , antepartum PAP AND HIGH RISK HPV, REFLEX TO GENOTYPING Routine 08/25/2023 5:34 PM [facility] from Last 3 Months or Most Recently Relevant to Health Maintenance Results * US Ob Follow Up (05/13/2025 8:49 AM [facility]) Fetus# Fetus1 VIEWPOINT Estimated Weight 3,998 g&grams VIEWPOINT Placenta Details left lateral, Previa-no, no placental masses VIEWPOINT Presentation Transverse Lie VIEWPOINT Anatomical Region Laterality Modality Abdomen N/A Ultrasound 05/13/2025 8:50 AM [facility] Impressions 05/13/2025 9:18 AM [facility] IUP - 36w 1d - LGA growth [...] IMG OB US PROCEDURES Johanny l Result * (ABNORMAL) POCT urinalysis (Clinitek) (05/08/2025 6:36 PM [facility]) Color, ur, POC Yellow Yellow Clarity, UA, POC Clear Clear [facility] Glucose, ur, POC Trace(A) Negative [facility] Bilirubin, ur, POC 1+(A) Negative [facility] Ketones, ur, POC 1+(A) Negative [facility] Specific gravity, ur, POC >=1.030(A) 1.010 - 1.025 [facility] Blood, ur, POC 2+(A) Negative [facility] pH, ur, POC 6.0 [facility] Comment: Interpretive Data Urine pH is affected by diet, medications, systemic acid-base disturbances, and renal tubular function. pH may affect urinary stone formation. For example, urine pH below 6.0 may help reduce the tendency for calcium phosphate stones and pH greater than 6.0 may reduce the tendency for uric acid stone formation. Source: [place]. Last Revised Date: 06-29-2017 Protein, ur, POC 2+(A) Negative [facility] Urobilinogen, ur, POC 1.0 mg/dL mg/dL [facility] Nitrites, ur, POC Negative Negative [facility] Leukocyte esterase, ur, POC Negative Negative [facility] Urine 05/08/2025 6:36 PM [facility] 05/08/2025 6:36 PM [facility] us Anna Mendoza MD LAB POCT ORDERABLES - DEVICE Final Result [facility] [place] [address] * Bile acids (05/05/2025 9:22 AM [facility]) Bile acids 5 <=10 mcmol/L [place] ref Lab Comment: Test Performed by: [place] [address] Health And Safety Inspector: Santiago London Ph.D.; CLIA# [id number] Blood 05/05/2025 9:22 AM [facility] 05/05/2025 11:10 AM [facility] us Yun Montoya MD LAB BLOOD ORDNaomy RICH Final Result Performing Organization Address [facility] [place] [address] [facility] * N. gonorrhoeae/C. trachomatis Amplification Urine (05/04/2025 11:27 AM [facility]) Pathologist [facility] C. trachomatis Not Detected Not Detected [facility] N. gonorrhoeae Not Detected Not Detected [facility] Comment: Interpretive Data This assay detects Chlamydia trachomatis and Neisseria gonorrhoeae by nucleic acid amplification testing (NAAT). This assay has been cleared by the [place] Food and Drug administration. The performance characteristics of this test have been verified by the [facility] Infectious Disease laboratory. The performance characteristics of this test have not been evaluated in individuals less than 14 years of age. Current Interpretive Data last revised 2023. Urine (None) 05/04/2025 11:2 7 AM [facility] 05/04/2025 12:20 PM [facility] us Kavita Valladares NP LAB MICROBIOLOGY - GENER AL ORDERABLES Final Result Performing Organization Address [facility] Co de Phone Number [facility] Department [place] [address] [facility] * Trichomonas vaginalis PCR Urine (05/04/2025 11:27 AM RECEIVER BULK SYSTEM) Trichomonas DNA Not Detected Not Detected [facility] Urine 05/04/2025 11:2 7 AM RECEIVER BULK SYSTEM 05/04/2025 12:20 PM RECEIVER BULK SYSTEM Maggy DAVIES - 05/04/2025 1:39 PM RECEIVER BULK SYSTEM Interpretive Data: This assay detects Trichomonas vaginalis by nucleic acid amplification testing (NAAT). This assay has been cleared by the [place] Food and Drug administration. The performance characteristics of this test have been verified by the [facility] laboratory. Excess blood in specimens may be inhibitory and result in false negative results. The performance of this test has not been evaluated in women or individuals less than 18 years of age. Kavita Valladares NP LAB MICROBIOLOGY - GENER AL ORDERABLES Final Result [facility] Department [place] [address] [facility] * eGFR (05/04/2025 11:27 AM RECEIVER BULK SYSTEM) eGFR >90 >=60 mL/min/1. 73 m2 Comment: Interpretive Data Reference Interval Normal >/= 90 mL/min/1.73m2 Mildly decreased* 60 - 89 mL/min/1.73m2 Mildly to moderately decreased 45 - 59 mL/min/1.73m2 Moderately to severely decreased 30 - 44 mL/min/1.73m2 Severely decreased 15 - 29 mL/min/1.73m2 Kidney Failure < 15 mL/min/1.73m2 *Relative to young adult level Estimated glomerular filtration rate is determined by the 2020 CKD-EPI equation recommended by the National Kidney Foundation (A Unifying Approach to GFR Estimation: Recommendations of the NKF-ASK Task Force on Reassessing the Inclusion of Race in Diagnosing Kidney Disease, JASN 2020). The CKD-EPI equation should not be used for patients with unstable renal function and has not been validated in children and those over 70. Current interpretive data was last reviewed 2021. Blood 05/04/2025 11:2 7 AM RECEIVER BULK SYSTEM 05/04/2025 11:43 AM RECEIVER BULK SYSTEM Kavita Valladares WATCH TECHNICIAN LAB BLOOD ORDERABLES Fin al Result Performing Organization Address [facility] Co de Phone Number [facility] Department [place] [address] * (ABNORMAL) CBC without differential (05/04/2025 11:27 AM RECEIVER BULK SYSTEM) WBC 18.18(H) 3.80 - 9.90 K/cumm Hgb 12.1 11.9 - 15.5 g/dL [facility] Hct 36.2 35.6 - 45.5 % [facility] Plt 221 150 - 400 K/cumm [facility] MPV 12.6(H) 9.1 - 12.3 fL [facility] RBC 3.83(L) 3.90 - 5.20 M/cumm [facility] MCV 94.5 81.3 - 96.4 fL [facility] MCH 31.6 27.1 - 33.3 pg [facility] MCHC 33.4 32.3 - 35.7 g/dL [facility] RDW CV 14.8 11.1 - 14.9 % [facility] RDW SD 51.1(H) 35.7 - 48.1 fL [facility] NRBC abs 0.00 0.00 - 0.01 K/cumm [facility] Blood 05/04/2025 11:2 7 AM RECEIVER BULK SYSTEM 05/04/2025 11:43 AM RECEIVER BULK SYSTEM Kavita Valladares WATCH TECHNICIAN LAB BLOOD ORDERABLES Fin al Result Performing Organization Address City/[facility]/ZIP Co de Phone Number [facility] Department [place] [address] * Type and screen (05/04/2025 11:27 AM RECEIVER BULK SYSTEM) ABO Rh O Positive Rogelio, indirect Negative [facility] Blood 05/04/2025 11:2 7 AM RECEIVER BULK SYSTEM 05/04/2025 11:44 AM RECEIVER BULK SYSTEM Narrative [facility] - 05/04/2025 12:28 PM RECEIVER BULK SYSTEM Has the patient had Daratumumab or Isatuximab in the past 6 months?->Unknown Kavita Valladares WATCH TECHNICIAN LAB BLOOD BANK TEST ORDNaomy RICH Final Result [facility] One [facility] Department [place] [address] * (ABNORMAL) Comprehensive metabolic panel (05/04/2025 11:27 AM RECEIVER BULK SYSTEM) Pathologist [facility] Sodium 136 135 - 145 mmol/L Potassium, pl 3.9 3.3 - 4.9 mmol/L [facility] Chloride 104 97 - 110 mmol/L [facility] CO2 22 22 - 32 mmol/L [facility] Anion gap 10 2 - 15 mmol/L [facility] BUN 2(L) 6 - 25 mg/dL [facility] Comment:Repeated and Verifie d Creatinine 0.43(L) 0.60 - 1.10 mg/dL [facility] Glucose 80 70 - 199 mg/dL [facility] Comment: Interpretive Data Fasting glucose >/= 126 mg/dl is diagnostic for diabetes. Fasting is defined as no caloric intake for at least 8 hours. Fasting glucose between 100 mg/dl to 125 mg/dl is diagnostic of prediabetes. In a patient with classic symptoms of hyperglycemia or hyperglycemic crisis, a random glucose >/= 200 mg/dl is diagnostic for diabetes. In the absence of unequivocal hyperglycemia, results should be confirmed by repeat testing. The classification and Diagnosis of Diabetes Diabetes Care 2021; 46: S19-S40. Current interpretive data was last revised 2022. Calcium 9.5 8.5 - 10.3 mg/dL [facility] Bilirubin, total 0.5 0.1 - 1.2 mg/dL [facility] Protein, pl 6.8 6.5 - 8.5 g/dL [facility] Albumin 3.7 3.5 - 5.0 g/dL [facility] Alk phos 276(H) 40 - 130 Units/L [facility] ALT 79(H) 7 - 45 Units/L [facility] AST 32 10 - 45 Units/L [facility] Blood 05/04/2025 11:2 7 AM RECEIVER BULK SYSTEM 05/04/2025 11:43 AM RECEIVER BULK SYSTEM us Kavita Valladares WATCH TECHNICIAN LAB BLOOD ORDERABLES Fin al Result Performing Organization Address City/[facility]/ZIP Co de Phone Number [facility] One [facility] Department [place] [address] * (ABNORMAL) POCT urinalysis (Clinitek) (05/04/2025 10:26 AM RECEIVER BULK SYSTEM) Color, ur, POC Yellow Yellow Clarity, UA, POC Clear Clear [facility] Glucose, ur, POC Negative Negative [facility] Bilirubin, ur, POC Negative Negative [facility] Ketones, ur, POC 1+(A) Negative [facility] Specific gravity, ur, POC 1.020 1.010 - 1.025 [facility] Blood, ur, POC 3+(A) Negative [facility] pH, ur, POC 7.0 [facility] Comment: Interpretive Data Urine pH is affected by diet, medications, systemic acid-base disturbances, and renal tubular function. pH may affect urinary stone formation. For example, urine pH below 6.0 may help reduce the tendency for calcium phosphate stones and pH greater than 6.0 may reduce the tendency for uric acid stone formation. Source: [facility]. Last Revised Date: 06-29-2017 Protein, ur, POC Negative Negative [facility] Urobilinogen, ur, POC 0.2 mg/dL mg/dL [facility] Nitrites, ur, POC Negative Negative [facility] Leukocyte esterase, ur, POC Trace(A) Negative [facility] Urine 05/04/2025 10:2 6 AM RECEIVER BULK SYSTEM 05/04/2025 10:26 AM RECEIVER BULK SYSTEM us Yun Montoya MD LAB POCT ORDER RONNA - DEVICE Final [facility] [place] [address] * eGFR (05/01/2025 11:33 AM RECEIVER BULK SYSTEM) eGFR >90 >=60 mL/min/1. 73 m2 Comment: Interpretive Data Reference Interval Normal >/= 90 mL/min/1.73m2 Mildly decreased* 60 - 89 mL/min/1.73m2 Mildly to moderately decreased 45 - 59 mL/min/1.73m2 Moderately to severely decreased 30 - 44 mL/min/1.73m2 Severely decreased 15 - 29 mL/min/1.73m2 Kidney Failure < 15 mL/min/1.73m2 *Relative to young adult level Estimated glomerular filtration rate is determined by the 2020 CKD-EPI equation recommended by the National Kidney Foundation (A Unifying Approach to GFR Estimation: Recommendations of the NKF-ASK Task Force on Reassessing the Inclusion of Race in Diagnosing Kidney Disease, JASN 2020). The CKD-EPI equation should not be used for patients with unstable renal function and has not been validated in children and those over 70. Current interpretive data was last reviewed 2021. Blood 05/01/2025 11:3 3 AM RECEIVER BULK SYSTEM 05/01/2025 1:42 PM RECEIVER BULK SYSTEM us Yun Montoya MD LAB BLOOD DELIA RICH Final Result [facility] [place] [address] * HIV 1/2 Antibody plus p24 Antigen Blood (05/01/2025 11:33 AM RECEIVER BULK SYSTEM) HIV 1/2 ab + p24 ag Nonreactive Nonreactive Comment:Nonreactive for HIV- 1 antigen and HIV-1/HIV-2 antibodies. No laboratory evidence of HIV infection. If acute HIV infection is suspected, consider testing for HIV-1 RNA. Current interpretive data was last revised on 22. Blood 05/01/2025 11:3 3 AM RECEIVER BULK SYSTEM 05/01/2025 1:31 PM RECEIVER BULK SYSTEM us Yunprimitivo Montoya MD LAB MICROBIOLO GY - GENERAL ORDERABLES Final Result Performing Organization Address [facility]/ZIP Co de Phone Number [facility] Department [place] [address] * (ABNORMAL) CBC without differential (05/01/2025 11:33 AM RECEIVER BULK SYSTEM) WBC 14.39(H) 3.80 - 9.90 K/cumm Hgb 12.0 11.9 - 15.5 g/dL [facility] Hct 35.8 35.6 - 45.5 % [facility] Plt 258 150 - 400 K/cumm [facility] MPV 12.5(H) 9.1 - 12.3 fL [facility] RBC 3.74(L) 3.90 - 5.20 M/cumm [facility] MCV 95.7 81.3 - 96.4 fL [facility] MCH 32.1 27.1 - 33.3 pg [facility] MCHC 33.5 32.3 - 35.7 g/dL [facility] RDW CV 14.8 11.1 - 14.9 % [facility] RDW SD 51.1(H) 35.7 - 48.1 fL [facility] NRBC abs 0.02(H) 0.00 - 0.01 K/cumm [facility] Blood 05/01/2025 11:3 3 AM RECEIVER BULK SYSTEM 05/01/2025 1:31 PM RECEIVER BULK SYSTEM us Yun Montoya MD LAB BLOOD ORDE RABLES Final Result [facility] Department [place] [address] * Uric acid (05/01/2025 11:33 AM RECEIVER BULK SYSTEM) Uric acid 3.9 2.5 - 7.0 mg/dL Blood 05/01/2025 11:3 3 AM RECEIVER BULK SYSTEM 05/01/2025 1:31 PM RECEIVER BULK SYSTEM us Yun Montoya MD LAB BLOOD ATULNaomy HILARIO Final Result [facility] One [facility] Department [place] [address] * (ABNORMAL) Comprehensive metabolic panel (05/01/2025 11:33 AM RECEIVER BULK SYSTEM) Sodium 140 135 - 145 mmol/L Potassium, pl 3.7 3.3 - 4.9 mmol/L [facility] Chloride 104 97 - 110 mmol/L [facility] CO2 23 22 - 32 mmol/L [facility] Anion gap 13 2 - 15 mmol/L [facility] BUN 5(L) 6 - 25 mg/dL [facility] Creatinine 0.45(L) 0.60 - 1.10 mg/dL [facility] Glucose 73 70 - 199 mg/dL [facility] Comment: Interpretive Data Fasting glucose >/= 126 mg/dl is diagnostic for diabetes. Fasting is defined as no caloric intake for at least 8 hours. Fasting glucose between 100 mg/dl to 125 mg/dl is diagnostic of prediabetes. In a patient with classic symptoms of hyperglycemia or hyperglycemic crisis, a random glucose >/= 200 mg/dl is diagnostic for diabetes. In the absence of unequivocal hyperglycemia, results should be confirmed by repeat testing. The classification and Diagnosis of Diabetes Diabetes Care 2021; 46: S19-S40. Current interpretive data was last revised 2022. Calcium 9.5 8.5 - 10.3 mg/dL [facility] Bilirubin, total 0.5 0.1 - 1.2 mg/dL [facility] Protein, pl 6.8 6.5 - 8.5 g/dL [facility] Albumin 3.7 3.5 - 5.0 g/dL [facility] Alk phos 265(H) 40 - 130 Units/L [facility] ALT 81(H) 7 - 45 Units/L [facility] AST 40 10 - 45 Units/L [facility] Blood 05/01/2025 11:3 3 AM RECEIVER BULK SYSTEM 05/01/2025 1:31 PM RECEIVER BULK SYSTEM us Yun Montoya MD LAB BLOOD DELIA RICH Final Result [facility] One [facility] Department [place] [address] * US Ob Limited (05/01/2025 9:11 AM RECEIVER BULK SYSTEM) Fetus# [id number] VIEWPOINT Placenta Details left lateral, Previa-no, no placental masses VIEWPOINT Presentation Transverse Lie VIEWPOINT Anatomical Region Laterality Modality Abdomen N/A Ultrasound 05/01/2025 9:17 AM RECEIVER BULK SYSTEM Impressions 05/01/2025 10:15 AM RECEIVER BULK SYSTEM IUP - 34w 3d The VENUS and MVP are at the upper normal limit. Transverse lie presentation. Narrative Procedure Note Brendon Mcmullen MD - 05/01/2025 IMPRESSION: IUP - 34w 3d The VENUS and MVP are at the upper normal limit. Transverse lie presentation. Marisa Dasilva WATCH TECHNICIAN IMG OB US PROCEDURES Final Result * (ABNORMAL) Protein / creatinine ratio, urine, random (04/25/2025 9:24 PM RECEIVER BULK SYSTEM) Protein, ur, quant 35.2 mg/dL Comment: Interpretive Data No reference range established. Current interpretive data was last revised 2018. Creatinine Ur 109.7 mg/dL [facility] Comment: Interpretive Data No reference range established. Current interpretive data was last revised 2018. Protein/creatinin e ratio 320.9(H) 0.0 - 180.0 mg/g CR [facility] Urine 04/25/2025 9:24 PM RECEIVER BULK SYSTEM 04/25/2025 9:37 PM RECEIVER BULK SYSTEM us Tamara Gomes WATCH TECHNICIAN LAB URINE ORDERABLES Final Re sult Performing Organization Address [facility] Co de Phone Number [facility] Department [place] [address] * eGFR (04/25/2025 7:59 PM RECEIVER BULK SYSTEM) Pathologist [facility] eGFR >90 >=60 mL/min/1. 73 m2 Comment: Interpretive Data Reference Interval Normal >/= 90 mL/min/1.73m2 Mildly decreased* 60 - 89 mL/min/1.73m2 Mildly to moderately decreased 45 - 59 mL/min/1.73m2 Moderately to severely decreased 30 - 44 mL/min/1.73m2 Severely decreased 15 - 29 mL/min/1.73m2 Kidney Failure < 15 mL/min/1.73m2 *Relative to young adult level Estimated glomerular filtration rate is determined by the 2020 CKD-EPI equation recommended by the National Kidney Foundation (A Unifying Approach to GFR Estimation: Recommendations of the NKF-ASK Task Force on Reassessing the Inclusion of Race in Diagnosing Kidney Disease, JASN 2020). The CKD-EPI equation should not be used for patients with unstable renal function and has not been validated in children and those over 70. Current interpretive data was last reviewed 2021. Blood 04/25/2025 7:59 PM RECEIVER BULK SYSTEM 04/25/2025 8:15 PM RECEIVER BULK SYSTEM Kavita Valladares WATCH TECHNICIAN LAB BLOOD ORDERABLES Fin al Result Performing Organization Address [facility] Co de Phone Number [facility] Department [place] [address] * (ABNORMAL) CBC without differential (04/25/2025 7:59 PM RECEIVER BULK SYSTEM) Pathologist [facility] WBC 14.40(H) 3.80 - 9.90 K/cumm Hgb 11.5(L) 11.9 - 15.5 g/dL [facility] Hct 34.4(L) 35.6 - 45.5 % [facility] Plt 242 150 - 400 K/cumm [facility] MPV 12.4(H) 9.1 - 12.3 fL [facility] RBC 3.61(L) 3.90 - 5.20 M/cumm [facility] MCV 95.3 81.3 - 96.4 fL [facility] MCH 31.9 27.1 - 33.3 pg [facility] MCHC 33.4 32.3 - 35.7 g/dL [facility] RDW CV 14.6 11.1 - 14.9 % [facility] RDW SD 51.0(H) 35.7 - 48.1 fL [facility] NRBC abs 0.00 0.00 - 0.01 K/cumm [facility] Blood 04/25/2025 7:59 PM RECEIVER BULK SYSTEM 04/25/2025 8:15 PM RECEIVER BULK SYSTEM Kavita Valladares WATCH TECHNICIAN LAB BLOOD ORDERABLES Fin al Result Performing Organization Address [facility] de Phone Number [facility] [place] [address] * Lipase (04/25/2025 7:59 PM RECEIVER BULK SYSTEM) Lipase 18 10 - 99 Units/L Blood 04/25/2025 7:59 PM RECEIVER BULK SYSTEM 04/25/2025 8:15 PM RECEIVER BULK SYSTEM Kavita Valladares WATCH TECHNICIAN LAB BLOOD ORDERABLES Fin al Result Performing Organization Address [facility] de Phone Number [facility] [place] [address] * Amylase (04/25/2025 7:59 PM RECEIVER BULK SYSTEM) Amylase 32 30 - 99 Units/L Blood 04/25/2025 7:59 PM RECEIVER BULK SYSTEM 04/25/2025 8:15 PM RECEIVER BULK SYSTEM Kavita Valladares WATCH TECHNICIAN LAB BLOOD ORDERABLES Fin al Result Performing Organization Address [facility]/ZIP Co de Phone Number [facility] Department [place] [address] * (ABNORMAL) Comprehensive metabolic panel (04/25/2025 7:59 PM RECEIVER BULK SYSTEM) Sodium 138 135 - 145 mmol/L Potassium, pl 3.6 3.3 - 4.9 mmol/L [facility] Chloride 106 97 - 110 mmol/L [facility] CO2 20(L) 22 - 32 mmol/L [facility] Anion gap 12 2 - 15 mmol/L [facility] BUN 3(L) 6 - 25 mg/dL [facility] Creatinine 0.37(L) 0.60 - 1.10 mg/dL [facility] Glucose 121 70 - 199 mg/dL [facility] Comment: Interpretive Data Fasting glucose >/= 126 mg/dl is diagnostic for diabetes. Fasting is defined as no caloric intake for at least 8 hours. Fasting glucose between 100 mg/dl to 125 mg/dl is diagnostic of prediabetes. In a patient with classic symptoms of hyperglycemia or hyperglycemic crisis, a random glucose >/= 200 mg/dl is diagnostic for diabetes. In the absence of unequivocal hyperglycemia, results should be confirmed by repeat testing. The classification and Diagnosis of Diabetes Diabetes Care 202; 46: S19-S40. Current interpretive data was last revised 2022. Calcium 9.2 8.5 - 10.3 mg/dL [facility] Bilirubin, total 0.4 0.1 - 1.2 mg/dL [facility] Protein, pl 6.7 6.5 - 8.5 g/dL [facility] Albumin 3.5 3.5 - 5.0 g/dL [facility] Alk phos 272(H) 40 - 130 Units/L [facility] ALT 59(H) 7 - 45 Units/L [facility] AST 36 10 - 45 Units/L [facility] Blood 04/25/2025 7:59 PM RECEIVER BULK SYSTEM 04/25/2025 8:15 PM RECEIVER BULK SYSTEM us Kavita Valladares NP LAB BLOOD ORDERABLES Fin al Result [facility] [place] [address] * (ABNORMAL) POCT urinalysis (Clinitek) (04/25/2025 7:38 PM RECEIVER BULK SYSTEM) Color, ur, POC Yellow Yellow Clarity, UA, POC Clear Clear [facility] Glucose, ur, POC 2+(A) Negative [facility] Bilirubin, ur, POC Negative Negative [facility] Ketones, ur, POC 1+(A) Negative [facility] Specific gravity, ur, POC 1.025 1.010 - 1.025 [facility] Blood, ur, POC Negative Negative [facility] pH, ur, POC 6.5 [facility] Comment: Interpretive Data Urine pH is affected by diet, medications, systemic acid-base disturbances, and renal tubular function. pH may affect urinary stone formation. For example, urine pH below 6.0 may help reduce the tendency for calcium phosphate stones and pH greater than 6.0 may reduce the tendency for uric acid stone formation. Source: [employer]. Last Revised Date: 06-29-2017 Protein, ur, POC 2+(A) Negative [facility] Urobilinogen, ur, POC 0.2 mg/dL mg/dL [facility] Nitrites, ur, POC Negative Negative [facility] Leukocyte esterase, ur, POC 1+(A) Negative [facility] Urine 04/25/2025 7:38 PM RECEIVER BULK SYSTEM 04/25/2025 7:38 PM RECEIVER BULK SYSTEM us Laura Maynard MD LAB POCT ORDERABLES - DEVICE Final Result [facility] [place] [address] * (ABNORMAL) Differential, auto (04/23/2025 3:26 PM RECEIVER BULK SYSTEM) Neutrophil abs 10.56(H) 1.50 - 6.50 K/cumm Imm gran abs 0.08 0.00 - 0.10 K/cumm [facility] Lymphocyte abs 1.80 0.80 - 3.30 K/cumm [facility] Monocyte abs 0.94(H) 0.20 - 0.80 K/cumm [facility] Eosinophil abs 0.13 0.00 - 0.50 K/cumm [facility] Basophil abs 0.04 0.00 - 0.10 K/cumm [facility] Neutrophil pct 77.9 % [facility] Comment: Interpretive Data Percent cell count reference ranges are not reported, since discordance with absolute values may lead to misinterpretation of CBC data. Current Interpretive Data was last revised on 2017. Imm gran pct 0.6 % [facility] Comment: Interpretive Data Percent cell count reference ranges are not reported, since discordance with absolute values may lead to misinterpretation of CBC data. Current Interpretive Data was last revised on 2017. Lymphocyte pct 13.3 % [facility] Comment: Interpretive Data Percent cell count reference ranges are not reported, since discordance with absolute values may lead to misinterpretation of CBC data. Current Interpretive Data was last revised on 2017. Monocyte pct 6.9 % [facility] Comment: Interpretive Data Percent cell count reference ranges are not reported, since discordance with absolute values may lead to misinterpretation of CBC data. Current Interpretive Data was last revised on 2017. Eosinophil pct 1.0 % [facility] Comment: Interpretive Data Percent cell count reference ranges are not reported, since discordance with absolute values may lead to misinterpretation of CBC data. Current Interpretive Data was last revised on 2017. Basophil pct 0.3 % [facility] Comment: Interpretive Data Percent cell count reference ranges are not reported, since discordance with absolute values may lead to misinterpretation of CBC data. Current Interpretive Data was last revised on 2017. Blood 04/23/2025 3:26 PM RECEIVER BULK SYSTEM 04/23/2025 3:38 PM RECEIVER BULK SYSTEM us Linda Phillips NP LAB BLOOD ORDERABLES Final Result [facility] One [facility] [place] [address] * Respiratory pathogen panel Nasopharyngeal (04/23/2025 3:26 PM RECEIVER BULK SYSTEM) Pathologist [facility] Influenza A RNA Not Detected Not Detected Influenza B RNA Not Detected Not Detected [facility] RSV RNA Not Detected Not Detected [facility] COVID-19 RNA Not Detected Not Detected [facility] Coronavirus 229E RNA Not Detected Not Detected [facility] Coronavirus HKU1 RNA Not Detected Not Detected [facility] Coronavirus NL63 RNA Not Detected Not Detected [facility] Coronavirus OC43 RNA Not Detected Not Detected [facility] Adenovirus DNA Not Detected Not Detected [facility] Metapneumovirus RNA Not Detected Not Detected [facility] Rhinovirus/Enterov irus RNA Not Detected Not Detected [facility] Parainfluenza 1 RNA Not Detected Not Detected [facility] Parainfluenza 2 RNA Not Detected Not Detected [facility] Parainfluenza 3 RNA Not Detected Not Detected [facility] Parainfluenza 4 RNA Not Detected Not Detected [facility] B. pertussis DNA Not Detected Not Detected [facility] B. parapertussis DNA Not Detected Not Detected [facility] C. pneumoniae DNA Not Detected Not Detected [facility] M. pneumoniae DNA Not Detected Not Detected [facility] Nasopharyngeal 04/23/2025 3: 26 PM [facility]CE[facility]K [facility] 04/23/2025 3:38 PM RECEIVER BULK SYSTEM Narrative [facility] - 04/23/2025 4:42 PM RECEIVER BULK SYSTEM Is the Patient experiencing symptoms consistent with COVID?->Yes Surveillance testing for transplant patient?->No Interpretive Data The Podclass FilmArray Respiratory Panel (RP2.1) assay is a multiplexed real-time PCR based nucleic acid test capable of simultaneous qualitative detection and identification of multiple respiratory viral and bacterial nucleic acids, including SARS Coronavirus 2 (the causative agent of COVID-19). The following bacteria, viruses and virus subtypes can be identified using the FilmArray RP2.1 assay: Bordetella pertussis, Bordetella parapertussis, Chlamydia pneumoniae, Mycoplasma pneumoniae, Adenovirus, SARS Coronavirus 2, seasonal coronaviruses (Coronavirus HKU1, Coronavirus NL63, Coronavirus 229E, and Coronavirus OC43), Influenza A, Influenza A subtype H1, Influenza A subtype H3, Influenza A subtype 2009 H1, Influenza B, Metapneumovirus, Parainfluenza 1, Parainfluenza 2, Parainfluenza 3, Parainfluenza 4, RSV, Rhinovirus/Enterovirus. Due to the genetic similarity between human Rhinovirus and Enterovirus, the FilmArray RP2.1 assay cannot reliably differentiate them. Coronavirus OC43 may cross-react with some isolates of Coronavirus HKU1. A dual positive result may be due to cross-reactivity or may indicate a co- infection. The detection and identification of specific viral and bacterial nucleic acids from individuals exhibiting signs and symptoms of a respiratory infection aids in the diagnosis of respiratory infection if used in conjunction with other clinical and epidemiological information. The results of this test should not be used as the sole basis for diagnosis, treatment, or other management decisions. Negative results in the setting of a respiratory illness may be due to infection with pathogens that are not detected by this test. Positive results do not rule out infection/co-infection with other organisms. The agent(s) detected by the FilmArray RP2.1 may not be the definite cause of disease. Additional testing (lab, imaging, etc.) may be necessary when evaluating a patient with possible respiratory tract infection. The FilmArray RP2.1 assay has FDA clearance for testing of WATCH TECHNICIAN swabs. The performance of additional specimen types has been assessed by the performing laboratory. The performance characteristics of this assay have been determined by [facility] Molecular Infectious Disease Laboratory. Current interpretive data was last revised on 22. Linda Phillips WATCH TECHNICIAN LAB MICROBIOLOGY - GENERAL ORDERABLES Final Result [facility] Department [place] [address] * (ABNORMAL) CBC with auto differential (04/23/2025 3:26 PM RECEIVER BULK SYSTEM) [facility] Signature WBC 13.55(H) 3.80 - 9.90 K/cumm Hgb 12.1 11.9 - 15.5 g/dL [facility] Hct 35.1(L) 35.6 - 45.5 % [facility] Plt 254 150 - 400 K/cumm [facility] MPV 12.2 9.1 - 12.3 fL [facility] RBC 3.72(L) 3.90 - 5.20 M/cumm [facility] MCV 94.4 81.3 - 96.4 fL [facility] MCH 32.5 27.1 - 33.3 pg [facility] MCHC 34.5 32.3 - 35.7 g/dL [facility] RDW CV 15.0(H) 11.1 - 14.9 % [facility] RDW SD 52.2(H) 35.7 - 48.1 fL [facility] NRBC abs 0.00 0.00 - 0.01 K/cumm [facility] Blood 04/23/2025 3:26 PM RECEIVER BULK SYSTEM 04/23/2025 3:38 PM RECEIVER BULK SYSTEM us Linda Phillips WATCH TECHNICIAN LAB BLOOD ORDERABLES Final Result [facility] Department [place] [address] * XR Chest 1 View (04/23/2025 3:07 PM RECEIVER BULK SYSTEM) Anatomical Region Laterality Modality Body, Chest N/A Computed Radiogr aphy 04/23/2025 4:22 PM [facility]CE[facility]K SYSTEM Impressions 04/23/2025 4:22 PM [facility]CE[facility]K SYSTEM Comparison is made to prior study 07/22/2024. In interval, no change. The lungs are clear. Specifically, no pulmonary edema or pneumonia. No pleural effusion or pneumothorax. Heart size and mediastinal contour are normal. Electronically signed by: Jaspal Nielsen M.D. Narrative 04/23/2025 4:22 PM RECEIVER BULK SYSTEM EXAMINATION: 1 view chest radiograph Procedure Note Jaspal Nielsen MD - 04/23/2025 EXAMINATION: 1 view chest radiograph IMPRESSION: Comparison is made to prior study 07/22/2024. In interval, no change. The lungs are clear. Specifically, no pulmonary edema or pneumonia. No pleural effusion or pneumothorax. Heart size and mediastinal contour are normal. Electronically signed by: Jaspal Nielsen M.D. us Linda Phillips NP IMG XR PROCEDURES Final Re sult * eGFR (04/23/2025 2:57 PM RECEIVER BULK SYSTEM) eGFR >90 >=60 mL/min/1. 73 m2 Comment: Interpretive Data Reference Interval Normal >/= 90 mL/min/1.73m2 Mildly decreased* 60 - 89 mL/min/1.73m2 Mildly to moderately decreased 45 - 59 mL/min/1.73m2 Moderately to severely decreased 30 - 44 mL/min/1.73m2 Severely decreased 15 - 29 mL/min/1.73m2 Kidney Failure < 15 mL/min/1.73m2 *Relative to young adult level Estimated glomerular filtration rate is determined by the 2020 CKD-EPI equation recommended by the National Kidney [employer] (A Unifying Approach to GFR Estimation: Recommendations of the NKF-ASK Task Force on Reassessing the Inclusion of Race in Diagnosing Kidney Disease, JASN 2020). The CKD-EPI equation should not be used for patients with unstable renal function and has not been validated in children and those over 70. Current interpretive data was last reviewed 2021. Blood 04/23/2025 2:57 PM RECEIVER BULK SYSTEM 04/23/2025 3:07 PM RECEIVER BULK SYSTEM us Linda Phillips NP LAB BLOOD ORDERABLES Final Result [facility] Department [place] [address] * (ABNORMAL) Comprehensive metabolic panel (04/23/2025 2:57 PM RECEIVER BULK SYSTEM) Sodium 139 135 - 145 mmol/L Potassium, pl 3.9 3.3 - 4.9 mmol/L [facility] Chloride 108 97 - 110 mmol/L [facility] CO2 22 22 - 32 mmol/L [facility] Anion gap 9 2 - 15 mmol/L [facility] BUN 3(L) 6 - 25 mg/dL [facility] Creatinine 0.51(L) 0.60 - 1.10 mg/dL [facility] Glucose 93 70 - 199 mg/dL [facility] Comment: Interpretive Data Fasting glucose >/= 126 mg/dl is diagnostic for diabetes. Fasting is defined as no caloric intake for at least 8 hours. Fasting glucose between 100 mg/dl to 125 mg/dl is diagnostic of prediabetes. In a patient with classic symptoms of hyperglycemia or hyperglycemic crisis, a random glucose >/= 200 mg/dl is diagnostic for diabetes. In the absence of unequivocal hyperglycemia, results should be confirmed by repeat testing. The classification and Diagnosis of Diabetes Diabetes Care 2021; 46: S19-S40. Current interpretive data was last revised 2022. Calcium 9.2 8.5 - 10.3 mg/dL [facility] Bilirubin, total 0.4 0.1 - 1.2 mg/dL [facility] Protein, pl 7.0 6.5 - 8.5 g/dL [facility] Albumin 3.5 3.5 - 5.0 g/dL [facility] Alk phos 242(H) 40 - 130 Units/L [facility] ALT 31 7 - 45 Units/L [facility] AST 26 10 - 45 Units/L [facility] Blood 04/23/2025 2:57 PM RECEIVER BULK SYSTEM 04/23/2025 3:07 PM RECEIVER BULK SYSTEM us Linda Phillips WATCH TECHNICIAN LAB BLOOD ORDERABLES Final Result [facility] Department [place] [address] * (ABNORMAL) POCT urinalysis (Clinitek) (04/23/2025 2:27 PM RECEIVER BULK SYSTEM) Color, ur, POC Yellow Yellow Clarity, UA, POC Clear Clear [facility] Glucose, ur, POC 2+(A) Negative [facility] Bilirubin, ur, POC Negative Negative [facility] Ketones, ur, POC Negative Negative [facility] Specific gravity, ur, POC 1.010 1.010 - 1.025 [facility] Blood, ur, POC Negative Negative [facility] pH, ur, POC 6.0 [facility] Comment: Interpretive Data Urine pH is affected by diet, medications, systemic acid-base disturbances, and renal tubular function. pH may affect urinary stone formation. For example, urine pH below 6.0 may help reduce the tendency for calcium phosphate stones and pH greater than 6.0 may reduce the tendency for uric acid stone formation. Source: [employer]. Last Revised Date: 06-29-2017 Protein, ur, POC Negative Negative [facility] Urobilinogen, ur, POC 0.2 mg/dL mg/dL [facility] Nitrites, ur, POC Negative Negative [facility] Leukocyte esterase, ur, POC Negative Negative [facility] Urine 04/23/2025 2:27 PM RECEIVER BULK SYSTEM 04/23/2025 2:27 PM RECEIVER BULK SYSTEM us Letitia Nicholas MD LAB POCT ORDERABLES - DEVICE Final Result [facility] [place] [address] * US Ob Follow Up (04/16/2025 8:13 AM CDT) Fetus# Fetus1 VIEWPOINT Estimated Weight 2,274 g&grams VIEWPOINT Placenta Details left lateral, Previa-no, no placental masses VIEWPOINT Presentation Breech VIEWPOINT Anatomical Region Laterality Modality Abdomen N/A Ultrasound 04/16/2025 8:14 AM CDT Impressions 04/16/2025 9:51 AM CDT Miles IUP at 32w 2d who presents for growth assessment. 1. Breech presentation. 2. The interval growth has been appropriate. The EFW plots at the 84%. Of note, the AC is 97%. 3. The amniotic fluid volume is consistent with mild polyhydramnios, VENUS 25.1 cm, MVP 9.7 cm. 4. The is again noted in the right uterine body, with the left uterine body empty. Polyhydramnios can be caused by maternal diabetes, neurological disorders, musculoskeletal disorders, anatomic abnormalities (GI, craniofacial, renal/urinary, or cardiac differences), chromosomal abnormalities, or can be idiopathic. She has had an normal anatomy assessment this , though of note the anatomy ultrasound performed was a standard rather than specialized, Today fluid was noted in the stomach. She completed a diabetic screening this that was normal. Abnormal fluid volume may be idiopathic and/or transient, however ultrasound may not detect all abnormalities that could be causing the polyhydramnios. We would recommend patient return in 2 weeks for evaluation of fluid volume. If polyhydramnios persistent, recommend completion of specialized anatomy views given original anatomy US was a standard. Narrative Procedure Note Jovanna Maxwell MD - 04/16/2025 IMPRESSION: Miles IUP at 32w 2d who presents for growth assessment. 1. Breech presentation. 2. The interval growth has been appropriate. The EFW plots at the84%. Of note, the AC is 97%. 3. The amniotic fluid volume is consistent with mild polyhydramnios, AFI25.1 cm, MVP 9.7 cm. 4. The is again noted in the right uterine body, with the leftuterine body empty. Polyhydramnios can be caused by maternal diabetes, neurologicaldisorders, musculoskeletal disorders, anatomic abnormalities(GI, craniofacial, renal/urinary, or cardiac differences), fetalchromosomal abnormalities, or can be idiopathic. She has had an normalanatomy assessment this , though of note the anatomy ultrasoundperformed was a standard rather than specialized, Today fluid was noted inthe stomach. She completed a diabetic screening this thatwas normal. Abnormal fluid volume may be idiopathic and/or transient,however ultrasound may not detect all abnormalities that could be causingthe polyhydramnios. We would recommend patient return in 2 weeks for evaluation of fluidvolume. If polyhydramnios persistent, recommend completion of specializedanatomy views given original anatomy US was a standard. us Marisa Dasilva WATCH TECHNICIAN IMG OB US PROCEDURES Final Result * (ABNORMAL) POCT urinalysis (Clinitek) (03/31/2025 4:41 PM CDT) Color, ur, POC Yellow Yellow Clarity, UA, POC Clear Clear [facility] Glucose, ur, POC Negative Negative [facility] Bilirubin, ur, POC Negative Negative [facility] Ketones, ur, POC 2+(A) Negative [facility] Specific gravity, ur, POC >=1.030(A) 1.010 - 1.025 [facility] Blood, ur, POC Negative Negative [facility] pH, ur, POC 6.5 [facility] Comment: Interpretive Data Urine pH is affected by diet, medications, systemic acid-base disturbances, and renal tubular function. pH may affect urinary stone formation. For example, urine pH below 6.0 may help reduce the tendency for calcium phosphate stones and pH greater than 6.0 may reduce the tendency for uric acid stone formation. Source: [employer]. Last Revised Date: 06-29-2017 Protein, ur, POC 1+(A) Negative [facility] Urobilinogen, ur, POC 0.2 mg/dL mg/dL [facility] Nitrites, ur, POC Negative Negative [facility] Leukocyte esterase, ur, POC Negative Negative [facility] Urine 03/31/2025 4:41 PM CDT 03/31/2025 4:41 PM CDT us Yun Ange Montoya MD LAB POCT ORDER RONNA - DEVICE Final Result [facility] [place] [address] * US Ob Follow Up (03/20/2025 8:50 AM CDT) Fetus# Fetus1 VIEWPOINT Estimated Weight 1,465 g&grams VIEWPOINT Placenta Details left lateral, Previa-no, no placental masses VIEWPOINT Presentation Breech VIEWPOINT Anatomical Region Laterality Modality Abdomen N/A Ultrasound 03/20/2025 8:50 AM CDT Impressions 03/20/2025 9:40 AM CDT Single IUP at 28w 3d for growth assessment 1. The biometry is appropriate for gestational age 2. The amniotic fluid volume is normal 3. The fetus is in breech position. is in the right horn of uterus. Narrative Procedure Note Earnestine Ibry MD - 03/20/2025 IMPRESSION: Single IUP at 28w 3d for growth assessment 1. The biometry is appropriate for gestational age 2. The amniotic fluid volume is normal 3. The fetus is in breech position. is in the right horn ofuterus. us Anna Mendoza MD IMG OB US PROCEDURES F inal Result * GTT 50gm 1hr gestational screen (02/27/2025 12:12 PM CDT) Glucose, gestational screen, pl 123 <140 mg/dL [facility] Blood 02/27/2025 12:1 2 PM CDT 02/27/2025 12:13 PM CDT Ross Daniel MD LAB BLOOD ORDERABLES Johanny l Result Performing Organization Address City/[facility]/ZIP Co de Phone Number QUEST [facility] [address] [place] [address] * RPR Blood (02/27/2025 12:12 PM CDT) RPR NON-REACTIV E NON-REACTI VE [facility] Blood 02/27/2025 12:1 2 PM CDT 02/27/2025 12:13 PM CDT Ross Daniel MD LAB MICROBIOLOGY - GENERA L ORDERABLES Final Result Performing Organization Address City/[facility]/ZIP Co de Phone Number [facility] [address] [place] [address] * (ABNORMAL) CBC without differential (02/27/2025 12:12 PM CDT) WBC 14.4(H) 3.8 - 10.8 Thousand/u L [facility] RBC, POC 3.58(L) 3.80 - 5.10 Million/uL [facility] Hgb 11.4(L) 11.7 - 15.5 g/dL [facility] Hct 35.4 35.0 - 45.0 % [facility] MCV 98.9 80.0 - 100.0 fL [facility] MCH 31.8 27.0 - 33.0 pg [facility] MCHC 32.2 32.0 - 36.0 g/dL [facility] Comment: For adults, a slight decrease in the calculated MCHC value (in the range of 30 to 32 g/dL) is most likely not clinically significant; however, it should be interpreted with caution in correlation with other red cell parameters and the patient's clinical condition. Rdw 14.4 11.0 - 15.0 % [facility] Platelets 280 140 - 400 Thousand/u L [facility] MPV 11.9 7.5 - 12.5 fL [facility] Blood 02/27/2025 12:1 2 PM CDT 02/27/2025 12:13 PM CDT us Ross Daniel MD LAB BLOOD ORDERABLES Johanny l Result Performing Organization Address [facility] Co de Phone Number [facility]ST [facility] [address] [place] [address] * (ABNORMAL) Ferritin (02/27/2025 12:12 PM CDT) Pathologist [facility] Ferritin 10(L) 16 - 154 ng/mL [facility] 02/27/2025 12:1 2 PM CDT 02/27/2025 12:13 PM CDT Ross Daniel MD LAB BLOOD ORDERABLES Johanny l Result Performing Organization Address [facility]/ZIP Co de Phone Number [facility] [address] [place] [address] * Hepatitis C antibody Blood (10/31/2024 9:40 AM CDT) Hep C Ab Nonreactive Nonreactive Comment:Antibodies to HCV no t detected. Does NOT exclude the possibility of recent exposure to HCV. Current interpretive data was last revised on 22 Blood 10/31/2024 9:40 AM CDT 10/31/2024 10:35 AM CDT us Yun Montoya MD LAB MICROBIOLO GY - GENERAL ORDERABLES Final Result [facility] Department [place] [address] * Pap and High Risk HPV and Genotyping (Cytology Component) (08/25/2023 5:34 PM RECEIVER BULK SYSTEM) Pap test 08/25/2023 5:34 PM RECEIVER BULK SYSTEM 08/25/2023 7:33 PM RECEIVER BULK SYSTEM Narrative 09/07/2023 12:01 PM CDT EPIC results best viewed via link to PDF [facility] [place], [place] [id number] Note to Patients: This report may contain a detailed description of human tissue sent by a health care provider to the laboratory for pathologic evaluation. The content of this report is essential for diagnosis and may provide important critical findings. This information may be unfamiliar to patients to review without a medical professional present. It is advised that the patient review this report in the presence of a health care provider who can answer questions and explain the details. CYTOPATHOLOGY REPORT FINAL Patient Name: LAURA CRUZ Gender: F : 1995 (Age: 28) Address: [address] [place] [id number] Hospital #: [id number] Service: DIRECTOR OF SPEECH PATHOLOGY Location: Patient Type: [facility] SPECIMEN Taken: 08/25/2023 Received: 08/25/2023 Accessioned: 08/28/2023 Reported: 09/07/2023 Physician(s): Pattie Mckenna M.D. FINAL INTERPRETATION SOURCE OF SPECIMEN Liquid based Thin Prep pap with HPV, right: STATEMENT OF ADEQUACY - Satisfactory for evaluation - Endocervical cells/transformation zone sample absent GENERAL CATEGORIZATION: - Negative for squamous intraepithelial lesion or malignancy SOURCE OF SPECIMEN Liquid based Thin Prep pap with HPV, left: STATEMENT OF ADEQUACY - Satisfactory for evaluation - Endocervical cells/transformation zone sample present GENERAL CATEGORIZATION: - Negative for squamous intraepithelial lesion or malignancy Comments A. Liquid based Thin Prep pap with HPV, right: Cervical/vaginal (Normal-Negative for High Risk HPV) HPV HR 16- Not detected HPV HR 18-Not detected HPV HR non 16/18- Not detected Interpretive Data Nucleic acid amplification for detection of high-risk Human Papilloma virus (HPV) is performed by the Penny Carissa 6800 HPV test. This assay specifically detects HPV- 16 and HPV-18 genotypes. The following HPV genotypes are detected as high-risk HPV: HPV-31, 33, 35, 39, 45, 51, 52, 56, 58, 59, 66, and 68. This assay has been approved by the [place] Food and Drug Administration for detection of HPV in cervical specimens collected by a physician using an endocervical brush/spatula or cervical broom and placed in the ThinPrep Pap Test PreservCyt collection containers. The performance characteristics of this test have been verified by the [facility] Molecular Infectious Disease laboratory. Correlate with reported cytology results, as applicable. Interpretive data last revised 22 B. Liquid based Thin Prep pap with HPV, left: Cervical/vaginal - Screening ThinPrep (Normal-Negative for High Risk HPV) HPV HR 16- Not detected HPV HR 18-Not detected HPV HR non 16/18- Not detected Interpretive Data Nucleic acid amplification for detection of high-risk Human Papilloma virus (HPV) is performed by the Penny Carissa 6800 HPV test. This assay specifically detects HPV- 16 and HPV-18 genotypes. The following HPV genotypes are detected as high-risk HPV: HPV-31, 33, 35, 39, 45, 51, 52, 56, 58, 59, 66, and 68. This assay has been approved by the [place] Food and Drug Administration for detection of HPV in cervical specimens collected by a physician using an endocervical brush/spatula or cervical broom and placed in the ThinPrep Pap Test PreservCyt collection containers. The performance characteristics of this test have been verified by the [facility] Molecular Infectious Disease laboratory. Correlate with reported cytology results, as applicable. Interpretive data last revised 22 rmk/09/07/2023 12:01 JONATAN Grande(ASCP) Report Electronically Reviewed and Signed Out By JONATAN Grande(ASCP) 09/07/2023 12:01:08 Cervicovaginal Cytology (Pap Test) Disclaimer: The Pap test is a screening test used to detect cervical cancer and its precursors; it is not a diagnostic procedure. False negative and false positive results do occur. Pap test results should be interpreted in the context of pertinent clinical information and biopsy results as indicated. [facility] Clinical Laboratory Improvement Amendments (CLIA) mandate that cytologic and histologic results be correlated for laboratory quality control systems manager & improvement standards. FOR ALL HIGH-GRADE CASES we request submission of follow-up histological material and/or reports that have not been previously provided so that we may fulfill said required standards. Gross Description A. Liquid based Thin Prep pap with HPV, right: Cervical/vaginal - Screening ThinPrep B. Liquid based Thin Prep pap with HPV, left: Cervical/vaginal - Screening ThinPrep Clinical Diagnosis and History Last Menstrual Period: 08/08/23 The patient is a 28 year old woman with screening of right and left sided cervix (of [facility]). Report Images and scanned documents, if included only viewable in PDF version The performance characteristics of some immunohistochemical stains, in-situ hybridization and fluorescence in-situ hybridization tests and immunophenotyping by flow cytometry cited in this report (if any) were determined by the Surgical Pathology Department at [facility] as part of an ongoing quality control engineer program and in compliance with federally mandated regulations drawn from the Clinical Laboratory Improvement Act of 1988 (CLIA '88). Some of these tests rely on the use of analyte specific reagents and are subject to specific labeling requirements by the [place] Food and Drug Administration. Such diagnostic tests may only be performed in a facility that is certified by the Department of Health and Human Services as a high complexity laboratory under CLIA '88. The FDA has determined that such clearance or approval is not necessary. This test is used for clinical purposes. It should not be regarded as investigational or for research. Nevertheless, federal rules concerning the medical use of analyte specific reagents require that the following disclaimer be attached to the report: This test was developed and its performance characteristics determined by the Surgical Pathology Department of [facility]. It has not been cleared or approved by the U. S. Food and Drug Administration. Pattie Mckenna MD LAB CYTOLOGY ORDERABLES Final Result from Last 3 Months or Most Recently Relevant to Health Maintenance Insurance [facility] Advance Directives For more information, please contact: [phone] * Full Code (Latest Code Status on File) Date Activated Date Inactivated Comments 05/04/2025 2:27 PM 05/05/2025 4:26 PM * Full Code Date Activated Date Inactivated Comments 07/05/2022 5:46 PM 07/07/2022 6:12 PM * Full Code Date Activated Date Inactivated Comments 07/05/2022 10:03 AM 07/05/2022 5:46 PM Full CPR in case of cardiopulmonary arrest Care Teams Clinical Informatics Specialist Relationship Specialty Start Date End Date Jabari Reynaga MD [address] [facility] [place] [address] PCP - General Internal Medicine 03/13/25
--- OUTSIDE RECORDS SUMMARY | 2025-05-13 14:34 | XMS_ITS | Encounter Summary ---
Author Organization [facility] Address [address] [place] [address] Phone Care Team Providers Care Cut And Print Machine Operator Name Role Phone Jabari Reynaga MD Primary Care Provider Encounter Details Date Type Department Care Team (Late st Contact Info) Description 05/08/2025 Telephone [facility] Medicine Obstetrics and Gynecology [address] [facility] [address] 7[address] [place] [address] Brant Elliott RN Social History Tobacco Use Types Packs/Day Years [...] often do you attend chur ch or taoism services? Never 07/06/2022 Do you belong to any clubs o r organizations such as holiness groups, unions, fraternal or athletic groups, or [...] in a fci (including now)? No 07/06/2022 [place] Depression Scale Answer Date Recorded [place] Depression Scale Total 0 08/18/2022 The thought [...] on file Legal Sex Female 6:23 PM SOLAR PROCESS ENGINEER Gender Identity Female 07/18/2024 2:44 PM SOLAR PROCESS ENGINEER Sexual Orientation Straight 07/18/2024 2: 44 PM SOLAR PROCESS ENGINEER documented as of this encounter Functional Status * Difference in Last Two Jose David Scores Answer Date of Assessment Author -2 05/08/2025 6:15 PM SOLAR PROCESS ENGINEER Manju Shanks RN * Marshall Fall Risk Question Answer Date of Assessment Author History of Falling 0 05/08/2025 6:15 PM Nava Barrera RN Secondary Diagnosis 15 05/08/2025 6:15 PM Nava Huang RN Ambulatory Aids 0 05/08/2025 6:15 PM SOLAR PROCESS ENGINEER Nava Guevara RN Intravenous Therapy/Heparin/Saline Lock 20 05/08/2025 6:15 PM SOLAR PROCESS ENGINEER Manju Shanks RN Gait/Transferring 0 05/08/2025 6:15 PM SOLAR PROCESS ENGINEER Nava Shanks RN Mental Status 0 05/08/2025 6:15 PM Nava Barrera RN Marshall Fall Risk Score (Score >= 45 places fall precaution order) 35 05/08/2025 6:15 PM SOLAR PROCESS ENGINEER Nava Shanks RN Prior Fall Event (Autopopulated from EMR) None found 05/08/2025 6:15 PM SOLAR PROCESS ENGINEER Gil Shanks RN * Jose David Scale Question Answer [...] light, BMAT 4 05/08/2025 6:15 PM Nava Barrera, CECILIA * B.M.A.T. - Bedside Mobility Assessment Tool [...] RN Bath Not bathed/showered 05/08/2025 6:15 PM Nava Huang RN documented as of this encounter Miscellaneous Notes * Telephone Encounter - Brant Elliott RN - 05/08/2025 4:06 PM CST 29 year old OB at 35w 3d calling to report decreased movement since yesterday. Patient seen in [facility] 05/04/25 to rule out pre term labor and was kept overnight to monitoring. At that timepatient was experiencing painful contractions, vaginal spotting and a large amount of mucus like vaginal discharge. Discharged 05/05/25. Patient reports noticing a change in movement as of yesterday and then again today. Patient experienced very painful menstrual like cramping yesterday along with nausea and vomiting. Today she feels overall better but given decreased movement she is very concerned. Patient has on/off spots in vision but denies headache or RUQ pain. BP at work today 128/82. Patient coming to the [facility] for evaluation given decreased movement. R PROCESS ENGINEER documented in this encounter Plan of Treatment Upcoming Encounters Date Type Department Care Team (Late st Contact Info) Description 06/02/2025 8:30 AM SOLAR PROCESS ENGINEER Hospital Encounter [address] [address] Letitia Nicholas MD [address] [place] [id number] 06/02/2025 8:30 AM SOLAR PROCESS ENGINEER - 06/02/2025 10:56 AM SOLAR PROCESS ENGINEER Surgery [address] [address] Lteitia Nicholas MD [address] [place] [id number] SECTION Scheduled Procedures Name Priority Associated Diagnoses Date/Ti me SECTION History of delivery 06/02/2025 8:30 AM SOLAR PROCESS ENGINEER documented as of this encounter Visit Diagnoses Not on filedocumented in this encounter Care Teams Cut And Print Machine Operator Relationship Specialty Start Date End Date Jabari Reynaga MD [address] [facility] [place] [address] PCP - General Internal Medicine 03/13/25 documented as of this encounter
--- OUTSIDE RECORDS SUMMARY | 2025-05-13 14:34 | XMS_ITS | Clinical Summary ---
Author Organization [facility] [address] Address [address] [place] [address] Care Team Providers Care Missile Technician Name Role Phone Unavailable Primary Care Provider Unavailabl e Allergies Active Allergy Reactions Criticality Noted Date Comments Codeine Hives,Other (See Comments),Rash,Unknown,Nausea and Vomiting High 05/05/2017 Levofloxacin Nausea and Vomiting Low 06/06/2024 Penicillins Hives,Other (See Comments),Rash,Unknown,Nausea and Vomiting High 05/05/2017 Medications Omeprazole-Sodiu m Bicarbonate 20-1,680 mg Packet Active PNV no.133/ferrous fum/folic ( ORAL) Take by mouth daily. Active ferrous sulfate 325 mg (65 mg iron) tablet Take 1 Tablet (325 mg) by mouth daily. 30 Tablet 1 04/30/2025 Active Active Problems No known active problems Encounters Date Type Department Care Team Description 05/09/2025 Orders Only [facility] - [place] [address] [place] [address] Eddie Parish MD Chronic anemia (Primary Dx) 04/30/2025 Telephone [facility] [address] [address] [place] [address] Eddie Parish MD appointment follow up 04/30/2025 Refill [facility] - [address] [place] [address] Eddie Parish MD 04/21/2025 Telephone [facility] - [address] [place] [address] Eddie Parish MD labs for appt 03/18/2025 External Device Data STL ABSTRACTION Provider, Abstract from Last 3 Months Family History Medical [...] P M CDT Height 162.6 cm (5' 4) 11/06/2024 1:41 PM CDT Body Mass Index 30.14 11/06/2024 1:41 PM CDT Plan of Treatment Upcoming Encounters Date Type Department Care Team (Late st Contact Info) Description 05/14/2025 10:30 AM [employer] Office Visit [facility] - [place] [address] [place] [address] Eddie Parish MD [address] [facility] [place] [facility] [employer] [address] [place] [address] Health Maintenance Due Date Last Done Comments HPV/Cotest (-) 2017 CERVICAL CANCER SCREENING 08/24/2026 PAP SMEAR 08/24/2026 08/25/2023 DTAP/TDAP/TD VACCINES (10 - Td or Tdap) 03/20/2035 03/20/2025, 05/10/2022, 05/05/2017, Additional history exists HEPATITIS B VACCINES Completed 1998, 03/28/1997, 1996 HPV VACCINES Completed 07/23/2007, 06/2006, 01/15/2007 INFLUENZA VACCINE Completed 03/20/2025, , 05/05/2017, Additional history exists Insurance [facility] MEDICAID
[2025-05-13 16:17] LABS: Alanine Aminotransferase 32 U/L (6-35); Albumin Level 3.7 g/dL (3.5-5.1); Alkaline Phosphatase 349 U/L (38-126); Anion Gap 9 mmol/L (4-12); Aspartate Amino Transferase 43 U/L (14-36); Bilirubin,Total 0.9 mg/dL (0.2-1.3); Blood Urea Nitrogen 3 mg/dL (7-17); Calcium 9.7 mg/dL (8.4-10.2); Carbon Dioxide 21 mmol/L (22-30); Chloride 105 mmol/L (98-107); Estimated Glomerular Filt Rate > 60; Glucose 63 mg/dL (65-110); Potassium 3.7 mmol/L (3.4-5.0); Sodium 135 mmol/L (137-145); Total Protein 7.1 g/dL (6.3-8.2)
[2025-05-13 16:19] LABS: Iron 120 ug/dL (37-170)
[2025-05-13 16:32] LABS: Percent Iron Saturation 23 % (20-50)
[2025-05-13 17:11] LABS: Ferritin 22.60 ng/mL (6.24-137)
[2025-05-13 17:15] LABS: Vitamin B12 395.0 pg/mL (239-931)
== END 2025-05-13 13:01 | disposition home or self-care (01) ==
LOC: ANHLAB 13:01
PROVIDERS: Visit Provider Internal Medicine Hematology & Oncology
DX: D64.9 Anemia, unspecified (principal)
CPT/HCPCS: 36415; 80053; 82607; 82728; 82746; 83540; 83550; 85025